=== PATIENT | male | born 1950 | race Caucasian/White ===

== ENCOUNTER → 2017-10-04 09:20 | Outpatient (CLI) | payer MEDICARE, SELFPAY ==
[2017-10-04 12:34] LABS: Color, Urine Yellow (Yellow); Glucose, Dipstick Normal (Normal); Ketone-Dipstick Negative (Negative); Leukocyte Esterase-Dipstick Negative /ul (Negative); Nitrite-Dipstick Negative (Negative); Occult Blood-Urine Negative /ul (Negative); Protein-Dipstick Negative (Negative); Urine Bilirubin Dipstick Negative (Negative); Urine Clarity Clear (Clear); Urine Urobilinogen Normal (Normal); Urine pH 6.5 (5.0 - 8.0)
[2017-10-04 12:36] LABS: Absolute Lymphocyte Count 1.87 X10^3/ul (0.83-4.51); Absolute Neutrophil Count 3.6 X10^3/uL (2.0-7.7); Basophil# 0.02 X10^3/uL; Basophil% 0.3 % (0-1); Eosinophil# 0.23 X10^3/uL; Eosinophils% 3.6 % (0-5); Hematocrit 46.2 % (40-54); Hemoglobin 15.4 g/dl (13.0-16.5); Lymphocyte # 1.87 X10^3/ul (4.0); Mean Corp Hgb Conc 33.3 g/gl (32-36); Mean Corpuscular Hgb 30.1 pg (27.0-32.0); Mean Corpuscular Volume 90.2 fL (80-94); Mean Platelet Vol. 9.4 fl (6.2-12.0); Monocyte# 0.72 X10^3/uL; Monocyte% 11.2 % (0-10); Neutrophil # 3.57 X10^3/uL (2.7-7.7); Neutrophil % 55.4 % (47-70); Platelet Count 205 K/mm3 (150-450); RBC Distribution Width SD 42.2 fl (35.1-43.9); Red Blood Count 5.12 M/mm3 (4.6-6.2); White Blood Count 6.4 K/mm3 (4.4-11.0)
[2017-10-04 12:37] LABS: POSITIVE COUNT NO; POSITIVE DIFFERENTIAL NO; POSITIVE MORPHOLOGY NO
[2017-10-04 13:14] LABS: ALB/GLOB Ratio 1.1 RATIO (0.9-2.4); AST(SGOT) 28 U/L (15-37); Alanine Aminotransfer ALT/SGPT 32 U/L (16-61); Albumin, Serum 3.9 g/dL (3.2-5.0); Alkaline Phosphatase 92 U/L (45-117); Anion Gap 11 (5-15); BUN 13 mg/dL (7-18); BUN/Creat Ratio 15.4 RATIO (10-20); Calcium,Total 8.5 mg/dL (8.5-10.1); Chloride 101 mmol/L (98-107); Cholesterol 120 mg/dL (200); Creatinine, Serum 0.84 mg/dL (0.70-1.30); EST Glomerular Filtration Rate 97 mL/min (>60); Est Glom Filt Rate - Afr Amer 118 mL/min (>60); Globulin 3.4 g/dL (2.2-4.2); Glucose 114 mg/dL (74-106); High Density Lipoprotein 40 mg/dL; Potassium 4.2 mmol/L (3.5-5.1); Protein, Total 7.3 g/dL (6.4-8.2); Sodium Level 139 mmol/L (136-145); Thyroid Stim Hormone (TSH) 1.63 uIU/mL (0.358-3.74); Triglycerides 125 mg/dL; Very Low Density Lipoprotein 25 mg/dL (5-40)
== END ==
DX: Z00.00 Encounter for general adult medical examination without abnormal findings (principal); E78.00 Pure hypercholesterolemia, unspecified; I10 Essential (primary) hypertension; E11.9 Type 2 diabetes mellitus without complications; Q23.1 Congenital insufficiency of aortic valve; Z12.5 Encounter for screening for malignant neoplasm of prostate
CPT/HCPCS: 36415; 80053; 80061; 81002; 84443; 85025

== ENCOUNTER → 2018-04-03 10:20 | Outpatient (CLI) | payer MEDICARE, SELFPAY ==
[2018-04-03 12:15] LABS: AST(SGOT) 26 U/L (15-37); Alanine Aminotransfer ALT/SGPT 31 U/L (16-61); Albumin, Serum 3.6 g/dL (3.2-5.0); Alkaline Phosphatase 86 U/L (45-117); Bilirubin, Direct 0.17 mg/dL (0.00-0.30); Cholesterol 107 mg/dL (200); Globulin 4.1 g/dL (2.2-4.2); High Density Lipoprotein 34 mg/dL; Protein, Total 7.7 g/dL (6.4-8.2); Thyroid Stim Hormone (TSH) 1.05 uIU/mL (0.358-3.74); Triglycerides 152 mg/dL; Very Low Density Lipoprotein 30 mg/dL (5-40)
[2018-04-03 12:16] LABS: Hemoglobin A1c 6.5 % (4.2-6.3)
== END ==
PROVIDERS: Visit Provider Family Medicine
DX: E78.00 Pure hypercholesterolemia, unspecified (principal); E11.9 Type 2 diabetes mellitus without complications; E03.9 Hypothyroidism, unspecified
CPT/HCPCS: 36415; 80061; 80076; 83036; 84443

== ENCOUNTER → 2018-10-01 08:35 | Outpatient (CLI) | payer MEDICARE, SELFPAY ==
[2018-06-06 09:57] VITALS: BMI 35.8
[2018-10-01 10:25] LABS: Color, Urine Yellow (Yellow); Glucose, Dipstick Normal (Normal); Ketone-Dipstick Negative (Negative); Leukocyte Esterase-Dipstick Negative /ul (Negative); Nitrite-Dipstick Negative (Negative); Occult Blood-Urine Negative /ul (Negative); Protein-Dipstick Negative (Negative); Specific Gravity, Urine 1.015 (1.002-1.030); Urine Bilirubin Dipstick Negative (Negative); Urine Clarity Clear (Clear); Urine Urobilinogen Normal (Normal)
[2018-10-01 10:40] LABS: ALB/GLOB Ratio 0.9 RATIO (0.9-2.4); AST(SGOT) 28 U/L (15-37); Alanine Aminotransfer ALT/SGPT 47 U/L (16-61); Albumin, Serum 3.6 g/dL (3.2-5.0); Alkaline Phosphatase 114 U/L (45-117); Anion Gap 10 (5-15); BUN 11 mg/dL (7-18); BUN/Creat Ratio 11.8 RATIO (10-20); Calcium,Total 8.3 mg/dL (8.5-10.1); Chloride 105 mmol/L (98-107); Cholesterol 109 mg/dL (200); Creatinine, Serum 0.93 mg/dL (0.70-1.30); EST Glomerular Filtration Rate 86 mL/min (>60); Est Glom Filt Rate - Afr Amer 104 mL/min (>60); Glucose 167 mg/dL (74-106); High Density Lipoprotein 30 mg/dL; Potassium 4.3 mmol/L (3.5-5.1); Protein, Total 7.6 g/dL (6.4-8.2); Sodium Level 138 mmol/L (136-145); Thyroid Stim Hormone (TSH) 2.33 uIU/mL (0.358-3.74); Triglycerides 230 mg/dL; Very Low Density Lipoprotein 46 mg/dL (5-40)
[2018-10-01 11:13] LABS: Absolute Lymphocyte Count 2.63 X10^3/ul (0.83-4.51); Absolute Neutrophil Count 4.6 X10^3/uL (2.0-7.7); Basophil# 0.04 X10^3/uL; Basophil% 0.5 % (0-1); Eosinophil# 0.26 X10^3/uL; Eosinophils% 3.1 % (0-5); Hemoglobin 15.9 g/dl (13.0-16.5); Lymphocyte # 2.63 X10^3/ul (4.0); Lymphocyte % 31.3 % (19-41); Mean Corp Hgb Conc 34.6 g/gl (32-36); Mean Corpuscular Volume 89.7 fL (80-94); Mean Platelet Vol. 9.5 fl (6.2-12.0); Monocyte% 9.5 % (0-10); Neutrophil # 4.61 X10^3/uL (2.7-7.7); Platelet Count 239 K/mm3 (150-450); RBC Distribution Width CV 13.3 % (11.6-14.6); Red Blood Count 5.13 M/mm3 (4.6-6.2); White Blood Count 8.4 K/mm3 (4.4-11.0)
[2018-10-01 11:15] LABS: POSITIVE COUNT NO; POSITIVE DIFFERENTIAL NO; POSITIVE MORPHOLOGY NO
[2018-10-01 12:01] LABS: PSA,Total - Annual Screen 0.17 ng/mL (0.00-4.00)
== END ==
PROVIDERS: Referring Provider Family Medicine; Visit Provider Family Medicine
DX: Z00.00 Encounter for general adult medical examination without abnormal findings (principal); E11.9 Type 2 diabetes mellitus without complications; E03.9 Hypothyroidism, unspecified; E78.00 Pure hypercholesterolemia, unspecified; I10 Essential (primary) hypertension; Z12.5 Encounter for screening for malignant neoplasm of prostate
CPT/HCPCS: 36415; 80053; 80061; 81002; 84153; 84443; 85025; G0103

== ENCOUNTER → 2019-01-15 | Outpatient (CLI) | payer MEDICARE, SELFPAY ==
[2018-12-17 11:02] VITALS: BMI 37.3
--- NOTE | 2019-01-15 09:59 | ECHOCS_ITS ---
Reason For Study: Bicuspid AoV Procedure This was a 2D Doppler, Color Flow transthoracic echocardiogram. The study was technically difficult. Contrast injection was performed. Exam performed in department. Left Ventricle Normal LV size. Left ventricular systolic function is normal. The estimated ejection fraction is 60 %. No evidence for diastolic dysfunction. No regional wall motion abnormalities noted. Right Ventricle Normal RV size. Normal systolic function. Atria Normal left atrium. Normal right atrium. No doppler evidence for ASD. Mitral Valve There is no mitral annular calcification. Normal mitral valve. Trivial mitral valve insufficiency. Tricuspid Valve Normal tricuspid valve. Trivial tricuspid valve insufficiency. Unable to estimate RV systolic pressure/pulmonary artery pressure due to technically difficult study. Aortic Valve Based upon the 2D echocardiographic images obtained the aortic valve apparatus is not well visualized, however, a bicuspid aortic valve with a fused and calcified raphae cannot be excluded. Mild aortic stenosis. Mild (1+) aortic valve insufficiency. Pulmonic Valve The pulmonic valve is not well visualized. Great Vessels Normal sized aortic root. Pericardium/Pleural No pericardial effusion. Medication Diluted definity 3ml given slow IV push to enhance endocardial definition. MMode/2D Measurements & Calculations LVIDd: 5.3 cm IVSd: 1.2 cm LVOT diam: 2.4 cm LVIDs: 2.9 cm LVPWd: 1.4 cm RVDd: 3.1 cm FS: 45.3 % LVOT area: 4.4 cm2 Ao root diam: 3.1 cm LAV(MOD-bp): 45.2 ml LVAd ap4: 33.5 cm2 LAV(MOD-bp) Indexed: 18.9 ml/m2 EDV(MOD-sp4): 100.1 ml LAV(MOD-sp2): 52.5 ml EDV(sp4-el): 104.2 ml LAV(MOD-sp4): 34.8 ml LVAs ap4: 16.1 cm2 ESV(MOD-sp4): 31.2 ml ESV(sp4-el): 31.8 ml EF(MOD-sp4): 68.8 % EF(sp4-el): 69.5 % SV(MOD-sp4): 68.9 ml SV(sp4-el): 72.4 ml LA A4 area: 14.3 cm2 LA dimension(2D): 3.9 cm RA A4 area: 11.7 cm2 Doppler Measurements & Calculations MV E max tom: 85.8 cm/sec Lat Peak E' Tom: 9.7 cm/sec Med Peak E' Tom: 7.5 cm/sec MV A max tom: 102.2 cm/sec E/E' lat: 8.9 E/E' med: 11.5 MV E/A: 0.84 Ao V2 max: 283.6 cm/sec AI max tom: 304.5 cm/sec LV V1 max: 119.8 cm/sec Ao max P.2 mmHg AI max P.1 mmHg LV V1 max P.7 mmHg Ao V2 mean: 190.3 cm/sec LV V1 mean P.1 mmHg Ao mean P.5 mmHg AI dec slope: 121.3 cm/sec2 LV V1 mean: 83.5 cm/sec Ao V2 VTI: 56.8 cm AI P1/2t: 735.0 msec LV V1 VTI: 27.0 cm RODGER(I,D): 2.1 cm2 RODGER(V,D): 1.9 cm2 SV(LVOT): 118.7 ml PA V2 max: 139.8 cm/sec Interpretation Summary The study was technically difficult. Contrast injection was performed. Left ventricular systolic function is normal. The estimated ejection fraction is 60 %. Trivial mitral valve insufficiency. Trivial tricuspid valve insufficiency. Based upon the 2D echocardiographic images obtained the aortic valve apparatus is not well visualized, however, a bicuspid aortic valve with a fused and calcified raphae cannot be excluded. Mild aortic stenosis. Mild (1+) aortic valve insufficiency. Unable to estimate RV systolic pressure/pulmonary artery pressure due to technically difficult study. No evidence for diastolic dysfunction. Ordering Physician: Branden Cole Referring Physician: Eugenio Arias Performed By: Umm Garcia, REILLY, RVT
== END | disposition home or self-care (01) ==
PROVIDERS: Referring Provider Internal Medicine Cardiovascular Disease; Visit Provider Internal Medicine Cardiovascular Disease
DX: I25.10 Atherosclerotic heart disease of native coronary artery without angina pectoris (principal)
CPT/HCPCS: 93306; Q9957; A4216; C8929

== ENCOUNTER → 2019-04-02 | Outpatient (CLI) | payer MEDICARE, SELFPAY ==
[2018-12-17 11:02] VITALS: BMI 37.3
[2019-04-02 10:20] LABS: Absolute Lymphocyte Count 2.32 X10^3/uL (0.83-4.51); Absolute Neutrophil Count 4.4 X10^3/uL (2.0-7.7); Basophil# 0.05 X10^3/uL; Basophil% 0.6 % (0-1); Eosinophil# 0.28 X10^3/uL; Eosinophils% 3.5 % (0-5); Hematocrit 42.7 % (40-54); Hemoglobin 14.3 g/dL (13.0-16.5); Lymphocyte # 2.32 X10^3/ul (4.0); Lymphocyte % 29.1 % (19-41); Mean Corp Hgb Conc 33.5 g/dL (32-36); Mean Corpuscular Hgb 29.8 pg (27.0-32.0); Mean Platelet Vol. 9.4 fl (6.2-12.0); Monocyte# 0.83 X10^3/uL; Monocyte% 10.4 % (0-10); NRBC Flagged by Analyzer 0 % (0-5); Neutrophil # 4.44 X10^3/uL (2.7-7.7); Neutrophil % 55.9 % (47-70); Platelet Count 223 K/mm3 (150-450); RBC Distribution Width CV 12.8 % (11.6-14.6); RBC Distribution Width SD 41.5 fl (35.1-43.9)
[2019-04-02 10:42] LABS: Color, Urine Yellow (Yellow); Glucose, Dipstick Normal (Normal); Ketone-Dipstick Negative (Negative); Leukocyte Esterase-Dipstick Negative /ul (Negative); Nitrite-Dipstick Negative (Negative); Occult Blood-Urine Negative /ul (Negative); Protein-Dipstick Negative (Negative); Specific Gravity, Urine 1.015 (1.002-1.030); Urine Bilirubin Dipstick Negative (Negative); Urine Clarity Clear (Clear); Urine Urobilinogen Normal (Normal)
[2019-04-02 10:53] LABS: Hemoglobin A1c 7.1 % (4.2-6.3)
[2019-04-02 10:56] LABS: ALB/GLOB Ratio 0.9 RATIO (0.9-2.4); AST(SGOT) 24 U/L (15-37); Alanine Aminotransfer ALT/SGPT 32 U/L (16-61); Albumin, Serum 3.4 g/dL (3.2-5.0); Alkaline Phosphatase 101 U/L (45-117); Anion Gap 7 (5-15); BUN 14 mg/dL (7-18); BUN/Creat Ratio 14.4 RATIO (10-20); Calcium,Total 8.6 mg/dL (8.5-10.1); Chloride 105 mmol/L (98-107); Cholesterol 114 mg/dL (200); Creatinine, Serum 0.97 mg/dL (0.70-1.30); EST Glomerular Filtration Rate 82 mL/min (>60); Est Glom Filt Rate - Afr Amer 100 mL/min (>60); Globulin 3.7 g/dL (2.2-4.2); Glucose 141 mg/dL (74-106); High Density Lipoprotein 31 mg/dL; Potassium 3.9 mmol/L (3.5-5.1); Protein, Total 7.1 g/dL (6.4-8.2); Sodium Level 137 mmol/L (136-145); Triglycerides 241 mg/dL; Very Low Density Lipoprotein 48 mg/dL (5-40)
== END | disposition home or self-care (01) ==
PROVIDERS: Referring Provider Family Medicine; Visit Provider Family Medicine
DX: Z00.00 Encounter for general adult medical examination without abnormal findings (principal); I25.10 Atherosclerotic heart disease of native coronary artery without angina pectoris; E11.9 Type 2 diabetes mellitus without complications; E03.9 Hypothyroidism, unspecified; E78.5 Hyperlipidemia, unspecified; I10 Essential (primary) hypertension
CPT/HCPCS: 36415; 80053; 80061; 81002; 83036; 85025

== ENCOUNTER → 2019-04-24 | Outpatient (CLI) | payer MEDICARE, SELFPAY ==
[2018-12-17 11:02] VITALS: BMI 37.3
--- NOTE | 2019-04-24 15:41 | NEURO ---
NCS and/or EMG Patient Report Ordering Doctor: Eugenio Arias DATE OF SERVICE: 04/24/19 Federico Calhoun is a 68-year-old male presents for electrodiagnostic testing of the upper limbs. He reports numbness and tingling in both hands, worse on the left side. Additionally, he complains of weakness in both hands. Electrodiagnostic findings: Median motor nerve demonstrates prolonged distal latency bilaterally with 50% drop in amplitude on the left side. There is slowing of right median motor conduction velocity. Ulnar motor response demonstrates decreased amplitude on the left side. Borderline prolonged median and ulnar F waves are noted. Prolonged median sensory latency at the wrist bilaterally. Prolonged median palmar latency noted bilaterally. Prolonged ulnar sensory latency bilaterally. On needle EMG, all muscles tested in the upper limb showed no evidence of denervation with normal motor unit action potentials. Electrodiagnostic impression: This is an abnormal study in the upper limbs. 1. Electrodiagnostic findings demonstrate bilateral median mononeuropathy. This is consistent with a moderate bilateral carpal tunnel syndrome. 2. 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 3. 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 4. Consider correlation with electrodiagnostic testing of the lower limbs to evaluate for peripheral polyneuropathy. Next If there are any further questions, please do not hesitate to contact me
== END | disposition home or self-care (01) ==
LOC: PSN 13:54
PROVIDERS: Referring Provider Family Medicine; Visit Provider Family Medicine
DX: R20.2 Paresthesia of skin (principal)
CPT/HCPCS: 95886; 95913

== ENCOUNTER → 2019-10-04 09:27 | Outpatient (CLI) | payer MEDICARE, SELFPAY ==
[2019-06-19 11:06] VITALS: BMI 36.1
[2019-10-04 13:25] LABS: AST(SGOT) 36 U/L (15-37); Alanine Aminotransfer ALT/SGPT 55 U/L (16-61); Albumin, Serum 3.5 g/dL (3.2-5.0); Alkaline Phosphatase 98 U/L (45-117); Bilirubin, Direct 0.11 mg/dL (0.00-0.30); Cholesterol 115 mg/dL (200); Globulin 3.7 g/dL (2.2-4.2); High Density Lipoprotein 31 mg/dL; Protein, Total 7.2 g/dL (6.4-8.2); Thyroid Stim Hormone (TSH) 1.88 uIU/mL (0.358-3.74); Triglycerides 256 mg/dL; Very Low Density Lipoprotein 51 mg/dL (5-40)
== END ==
PROVIDERS: Referring Provider Family Medicine; Visit Provider Family Medicine
DX: E11.9 Type 2 diabetes mellitus without complications (principal); E78.5 Hyperlipidemia, unspecified; E03.9 Hypothyroidism, unspecified
CPT/HCPCS: 36415; 80061; 80076; 83036; 84443

== ENCOUNTER → 2019-10-21 09:16 | Outpatient (CLI) | payer MEDICARE, SELFPAY ==
[2019-06-19 11:06] VITALS: BMI 36.1
--- NOTE | 2019-10-21 09:35 | EKG12_ITS ---
Test Reason : PRE OP Blood Pressure : / mmHG Vent. Rate : 067 BPM Atrial Rate : 067 BPM P-R Int : 196 ms QRS Dur : 084 ms QT Int : 384 ms P-R-T Axes : 052 -09 023 degrees QTc Int : 405 ms Sinus rhythm with occasional Premature ventricular complexes Inferior infarct , age undetermined Abnormal ECG Confirmed by SANDOVAL ARZATE, HENRY ([id number]), writer editor TRACY HUTCHINS ([id number]) on 10/22/2019 10:33:39 AM Referred By: Virginie Willson Confirmed By:HENRY NICK MD
[2019-10-21 10:49] LABS: Anion Gap 6 (5-15); BUN 11 mg/dL (7-18); BUN/Creat Ratio 10.7 RATIO (10-20); Calcium,Total 8.7 mg/dL (8.5-10.1); Chloride 105 mmol/L (98-107); Creatinine, Serum 1.03 mg/dL (0.70-1.30); EST Glomerular Filtration Rate 77 mL/min (>60); Est Glom Filt Rate - Afr Amer 93 mL/min (>60); Glucose 159 mg/dL (74-106); Potassium 4.2 mmol/L (3.5-5.1); Sodium Level 137 mmol/L (136-145)
== END ==
PROVIDERS: Referring Provider Orthopaedic Surgery Hand Surgery; Visit Provider Orthopaedic Surgery Hand Surgery
DX: G56.02 Carpal tunnel syndrome, left upper limb (principal); G56.22 Lesion of ulnar nerve, left upper limb; I10 Essential (primary) hypertension
CPT/HCPCS: 36415; 80048; 93005

== ENCOUNTER → 2019-10-25 08:26 | Outpatient (CLI) | payer MEDICARE, SELFPAY ==
[2019-06-19 11:06] VITALS: BMI 36.1
== END ==
PROVIDERS: Referring Provider Orthopaedic Surgery Hand Surgery; Visit Provider Orthopaedic Surgery Hand Surgery
DX: G56.02 Carpal tunnel syndrome, left upper limb (principal)
CPT/HCPCS: 36415; 85018

== ENCOUNTER → 2020-01-24 07:25 | Outpatient (CLI) | payer MEDICARE, SELFPAY ==
[2019-06-19 11:06] VITALS: BMI 36.1
[2020-01-24 10:30] LABS: Anion Gap 6 (5-15); BUN 13 mg/dL (7-18); BUN/Creat Ratio 13.4 RATIO (10-20); Calcium,Total 9.1 mg/dL (8.5-10.1); Chloride 105 mmol/L (98-107); Creatinine, Serum 0.97 mg/dL (0.70-1.30); EST Glomerular Filtration Rate 82 mL/min (>60); Est Glom Filt Rate - Afr Amer 99 mL/min (>60); Glucose 168 mg/dL (74-106); Potassium 3.8 mmol/L (3.5-5.1); Sodium Level 138 mmol/L (136-145)
[2020-01-24 22:56] LABS: Hemoglobin 14.4 g/dL (13.0-16.5)
== END ==
PROVIDERS: Referring Provider Orthopaedic Surgery Hand Surgery; Visit Provider Orthopaedic Surgery Hand Surgery
DX: G56.02 Carpal tunnel syndrome, left upper limb (principal); G56.22 Lesion of ulnar nerve, left upper limb; E07.9 Disorder of thyroid, unspecified; Z79.899 Other long term (current) drug therapy
CPT/HCPCS: 36415; 80048; 83036; 85018

== ENCOUNTER → 2020-04-03 09:44 | Outpatient (CLI) | payer MEDICARE, SELFPAY ==
[2019-06-19 11:06] VITALS: BMI 36.1
[2020-04-03 12:18] LABS: Absolute Lymphocyte Count 2.25 X10^3/uL (0.83-4.51); Absolute Neutrophil Count 4.8 X10^3/uL (2.0-7.7); Basophil# 0.03 X10^3/uL; Basophil% 0.4 % (0-1); Eosinophil# 0.21 X10^3/uL; Eosinophils% 2.7 % (0-5); Hematocrit 45.1 % (40-54); Hemoglobin 14.6 g/dL (13.0-16.5); Lymphocyte # 2.25 X10^3/ul (4.0); Lymphocyte % 28.6 % (19-41); Mean Corp Hgb Conc 32.4 g/dL (32-36); Mean Corpuscular Hgb 29.8 pg (27.0-32.0); Mean Platelet Vol. 9.7 fl (6.2-12.0); Monocyte# 0.58 X10^3/uL; Monocyte% 7.4 % (0-10); NRBC Flagged by Analyzer 0 % (0-5); Neutrophil # 4.76 X10^3/uL (2.7-7.7); Neutrophil % 60.4 % (47-70); Platelet Count 224 K/mm3 (150-450); RBC Distribution Width CV 13.3 % (11.6-14.6); RBC Distribution Width SD 44.7 fl (35.1-43.9); White Blood Count 7.9 K/mm3 (4.4-11.0)
[2020-04-03 12:19] LABS: Color, Urine Yellow (Yellow); Glucose, Dipstick Normal (Normal); Ketone-Dipstick Negative (Negative); Leukocyte Esterase-Dipstick Negative /ul (Negative); Nitrite-Dipstick Negative (Negative); Occult Blood-Urine Negative /ul (Negative); Protein-Dipstick Negative (Negative); Urine Bilirubin Dipstick Negative (Negative); Urine Clarity Clear (Clear); Urine Urobilinogen Normal (Normal)
[2020-04-03 12:39] LABS: Hemoglobin A1c 7.8 % (3.8-5.6)
[2020-04-03 12:58] LABS: ALB/GLOB Ratio 0.8 RATIO (0.9-2.4); AST(SGOT) 30 U/L (15-37); Alanine Aminotransfer ALT/SGPT 37 U/L (16-61); Albumin, Serum 3.4 g/dL (3.2-5.0); Alkaline Phosphatase 95 U/L (45-117); Anion Gap 7 (5-15); BUN 9 mg/dL (7-18); BUN/Creat Ratio 9.7 RATIO (10-20); Calcium,Total 8.3 mg/dL (8.5-10.1); Chloride 107 mmol/L (98-107); Cholesterol 103 mg/dL (200); Creatinine, Serum 0.93 mg/dL (0.70-1.30); EST Glomerular Filtration Rate 86 mL/min (>60); Est Glom Filt Rate - Afr Amer 104 mL/min (>60); Glucose 153 mg/dL (74-106); High Density Lipoprotein 31 mg/dL; PSA,Total - Annual Screen 0.18 ng/mL (0.00-4.00); Potassium 4.1 mmol/L (3.5-5.1); Protein, Total 7.4 g/dL (6.4-8.2); Sodium Level 138 mmol/L (136-145); Triglycerides 155 mg/dL; Very Low Density Lipoprotein 31 mg/dL (5-40)
== END ==
PROVIDERS: Referring Provider Family Medicine; Visit Provider Family Medicine
DX: Z00.00 Encounter for general adult medical examination without abnormal findings (principal); I25.10 Atherosclerotic heart disease of native coronary artery without angina pectoris; E11.9 Type 2 diabetes mellitus without complications; E78.5 Hyperlipidemia, unspecified; I10 Essential (primary) hypertension; E03.9 Hypothyroidism, unspecified; Z12.5 Encounter for screening for malignant neoplasm of prostate
CPT/HCPCS: 36415; 80053; 80061; 81002; 83036; 84153; 84443; 85025; G0103

== ENCOUNTER → 2020-04-28 12:32 | Outpatient (CLI) | payer MEDICARE, SELFPAY ==
[2020-04-27 11:36] VITALS: BMI 36.5
--- NOTE | 2020-04-28 12:34 | RAD_ITS ---
STUDY: X-RAY CHEST REASON FOR EXAM: Male, 69 years old. Dyspnea on exertion x 1 month, hypertension -- angioplasty 4 years ago TECHNIQUE: Frontal and lateral view COMPARISON: 09/28/2015 FINDINGS: The lungs are expanded. Bibasilar interstitial prominence. Normal size heart. Normal mediastinum and heidi. Normal visualized pulmonary arteries. Normal visualized aortic arch and descending thoracic aorta. Degenerative changes of the thoracic spine. Degenerative changes at the shoulders. There is no demonstrated abnormality of the visualized soft tissue structures of the upper abdomen. RAD/Chest PA and Lateral IMPRESSION: Bibasilar interstitial prominence. Electronically Signed: Michel Reno DO at 23:42 EDT Tel [phone], Service support ,
== END ==
PROVIDERS: Referring Provider Internal Medicine Cardiovascular Disease; Visit Provider Internal Medicine Cardiovascular Disease
DX: I25.10 Atherosclerotic heart disease of native coronary artery without angina pectoris (principal); Q23.1 Congenital insufficiency of aortic valve; E78.00 Pure hypercholesterolemia, unspecified; I10 Essential (primary) hypertension; R06.00 Dyspnea, unspecified; Z98.61 Coronary angioplasty status
CPT/HCPCS: 71046

== ENCOUNTER → 2020-06-25 06:34 | Outpatient (CLI) | payer MEDICARE, SELFPAY ==
[2020-04-27 11:36] VITALS: BMI 36.5
--- NOTE | 2020-06-25 06:36 | ECHOCS_ITS ---
Reason For Study: DYSPNEA/SOB Procedure This was a 2D Doppler, Color Flow transthoracic echocardiogram. The study was technically difficult. Contrast injection was performed. Exam performed in department. Left Ventricle Normal LV size. Left ventricular systolic function is normal. The estimated ejection fraction is 55 %. No evidence for diastolic dysfunction. No regional wall motion abnormalities noted. Right Ventricle Normal RV size. Normal systolic function. Atria Normal left atrium. Normal right atrium. No doppler evidence for ASD. Mitral Valve There is no mitral annular calcification. Normal mitral valve. Trivial mitral valve insufficiency. Tricuspid Valve Normal tricuspid valve. Trivial tricuspid valve insufficiency. Unable to estimate RV systolic pressure/pulmonary artery pressure due to technically difficult study. Aortic Valve Based upon the 2D echocardiographic images obtained the aortic valve apparatus is not well visualized, however, bicuspid aortic valve with a fused and calcified raphae cannot be excluded. Severe focal aortic valve calcification. Mild aortic stenosis. Trivial aortic valve insufficiency. Pulmonic Valve The pulmonic valve is not well visualized. Great Vessels Normal aortic root. Pericardium/Pleural No pericardial effusion. Medication Diluted definity 3ml given slow IV push to enhance endocardial definition. MMode/2D Measurements & Calculations LVIDd: 4.8 cm IVSd: 1.1 cm LVOT diam: 2.0 cm LVIDs: 3.3 cm LVPWd: 1.2 cm RVDd: 3.5 cm FS: 31.0 % LVOT area: 3.3 cm2 Ao root diam: 3.2 cm LAV(MOD-bp): 63.7 ml LVAd ap4: 36.4 cm2 LAV(MOD-bp) Indexed: 26.9 ml/m2 EDV(MOD-sp4): 129.1 ml LAV(MOD-sp2): 75.7 ml EDV(sp4-el): 130.4 ml LAV(MOD-sp4): 47.1 ml LVAs ap4: 24.1 cm2 ESV(MOD-sp4): 61.8 ml ESV(sp4-el): 63.8 ml EF(MOD-sp4): 52.1 % EF(sp4-el): 51.1 % SV(MOD-sp4): 67.3 ml SV(sp4-el): 66.7 ml LA A4 area: 16.8 cm2 LA dimension(2D): 3.8 cm RA A4 area: 14.5 cm2 Time Measurements MV dec time: 0.22 sec Doppler Measurements & Calculations MV E max tom: 101.3 cm/sec Lat Peak E' Tom: 10.1 cm/sec Med Peak E' Tom: 7.8 cm/sec MV A max tom: 87.4 cm/sec E/E' lat: 10.0 E/E' med: 13.1 MV E/A: 1.2 Ao V2 max: 237.3 cm/sec AI max tom: 364.9 cm/sec LV V1 max: 90.6 cm/sec Ao max P.5 mmHg AI max P.3 mmHg LV V1 max P.3 mmHg Ao V2 mean: 173.1 cm/sec AI dec slope: 186.4 cm/sec2 LV V1 mean P.7 mmHg Ao mean P.2 mmHg AI P1/2t: 573.4 msec LV V1 mean: 60.1 cm/sec Ao V2 VTI: 59.6 cm LV V1 VTI: 23.9 cm RODGER(I,D): 1.3 cm2 RODGER(V,D): 1.2 cm2 SV(LVOT): 78.4 ml PA V2 max: 126.3 cm/sec Interpretation Summary The study was technically difficult. Contrast injection was performed. Left ventricular systolic function is normal. The estimated ejection fraction is 55 %. Trivial mitral valve insufficiency. Trivial tricuspid valve insufficiency. Based upon the 2D echocardiographic images obtained the aortic valve apparatus is not well visualized, however, bicuspid aortic valve with a fused and calcified raphae cannot be excluded. Severe focal aortic valve calcification. Mild aortic stenosis. Trivial aortic valve insufficiency. Unable to estimate RV systolic pressure/pulmonary artery pressure due to technically difficult study. No evidence for diastolic dysfunction. Ordering Physician: Branden Cole Referring Physician: GABINO SOLO Performed By: Delores Thomas RDCS
--- NOTE | 2020-06-25 08:41 | STRESSREP_ITS ---
Stress Test Report Date: 06-25-2020 Procedure: Pharmacologic stress nuclear imaging study Indications: Shortness of breath/dyspnea on exertion; CAD; PCI; bicuspid aortic valve; IVA Consent: Per the patient Procedure: The patient underwent pharmacologic (Regadenoson) evaluation with a peak heart rate of 85 beats per minute (55%predicted maximal heart rate) and a peak blood pressure of 128/66 mmHg. The baseline ECG demonstrated sinus rhythm; occasional PVC. The peak pharmacologic ECG demonstrated no obvious ECG changes. There was an occasional PVC pretest, during infusion, and recovery. There was no complaint of chest discomfort during pharmacologic infusion or recovery. The examination was discontinued secondary to completion of protocol. Impression: 1. Pharmacologic (Regadenoson) evaluation 2. Peak pharmacologic ECG with with no obvious ECG changes. 3. There were no cardiac dysrhythmias pretest, during pharmacologic infusion, or recovery. 4. Nuclear images pending Myocardial perfusion imaging study: Technique: The patient was injected with 14.8 millicuries of technetium 99m Cardiolite and subsequently rest SPECT Cardiolite nuclear imaging was obtained in the horizontal long, vertical long, and short axis views. The patient underwent pharmacologic (Regadenoson) evaluation with a peak heart rate of 85 beats per minute (55% percent predicted maximal heart rate) and a peak blood pressure of 128/66 mmHg. The patient was injected with 44.7 millicuries of technetium 99m Cardiolite and subsequently stress SPECT Cardiolite nuclear imaging was obtained in the horizontal long, vertical long, and short axis views. A gated Cardiolite study at peak stress was obtained. Interpretation: Rest and stress SPECT Cardiolite nuclear imaging status post realignment, normalization, and attenuation correction demonstrate relative uniform tracer uptake and myocardial perfusion appearing within normal limits. There is end systolic thickening and brightening. The gated Cardiolite study demonstrates myocardial thickening and inward wall motion. The reported LVEF is 54%. Impression: 1. Rest and stress SPECT Cardiolite nuclear imaging demonstrate relative uniform tracer uptake and myocardial perfusion appearing within normal limits. 2. The gated Cardiolite study reports an LVEF of 54%. This note was generated with [employer] software. It may contain incorrect words, spelling, and punctuation that were not noted in checking the note before signing.
== END ==
PROVIDERS: Referring Provider Internal Medicine Cardiovascular Disease; Visit Provider Internal Medicine Cardiovascular Disease
DX: I25.10 Atherosclerotic heart disease of native coronary artery without angina pectoris (principal); R06.09 Other forms of dyspnea; Q23.1 Congenital insufficiency of aortic valve; E78.00 Pure hypercholesterolemia, unspecified; I10 Essential (primary) hypertension; R06.00 Dyspnea, unspecified; Z98.61 Coronary angioplasty status
CPT/HCPCS: 78452; 93017; 93306; A9500; Q9957; A4216; C8929; J2785

== ENCOUNTER → 2020-09-25 08:47 | Outpatient (CLI) | payer MEDICARE, SELFPAY ==
[2020-04-27 11:36] VITALS: BMI 36.5
[2020-09-25 10:41] LABS: ALB/GLOB Ratio 0.9 RATIO (0.9-2.4); AST(SGOT) 27 U/L (15-37); Alanine Aminotransfer ALT/SGPT 36 U/L (16-61); Albumin, Serum 3.7 g/dL (3.2-5.0); Alkaline Phosphatase 68 U/L (45-117); Anion Gap 5 (5-15); BUN 12 mg/dL (7-18); BUN/Creat Ratio 11.8 RATIO (10-20); Calcium,Total 8.7 mg/dL (8.5-10.1); Chloride 105 mmol/L (98-107); Cholesterol 132 mg/dL (200); Creatinine, Serum 1.02 mg/dL (0.70-1.30); EST Glomerular Filtration Rate 77 mL/min (>60); Est Glom Filt Rate - Afr Amer 93 mL/min (>60); Glucose 133 mg/dL (74-106); High Density Lipoprotein 47 mg/dL; Potassium 4.4 mmol/L (3.5-5.1); Protein, Total 7.7 g/dL (6.4-8.2); Sodium Level 136 mmol/L (136-145); Thyroid Stim Hormone (TSH) 2.07 uIU/mL (0.358-3.74); Triglycerides 143 mg/dL; Very Low Density Lipoprotein 29 mg/dL (5-40)
[2020-09-25 10:42] LABS: Hemoglobin A1c 6.8 % (3.8-5.6)
== END ==
PROVIDERS: Referring Provider Family Medicine; Visit Provider Family Medicine
DX: E11.9 Type 2 diabetes mellitus without complications (principal); E78.5 Hyperlipidemia, unspecified; I10 Essential (primary) hypertension; E03.9 Hypothyroidism, unspecified
CPT/HCPCS: 36415; 80053; 80061; 83036; 84443

== ENCOUNTER 2020-10-01 19:33 | Inpatient (IN) | payer MEDICARE, SELFPAY ==
[2020-04-27 11:36] VITALS: BMI 36.5
[2020-10-01] VITALS (9 sets, daily range): BP systolic 111–154; BP diastolic 61–94; PULSE 93–103; RESP 18–24; TEMP 36.2–37.2; O2SAT 81–97; BMI 39.7; BMI 37.6; BMI 37.7
--- NOTE | 2020-10-01 20:18 | EKG12_ITS ---
Test Reason : SOB Blood Pressure : / mmHG Vent. Rate : 097 BPM Atrial Rate : 097 BPM P-R Int : 172 ms QRS Dur : 100 ms QT Int : 384 ms P-R-T Axes : 033 -07 019 degrees QTc Int : 487 ms Sinus rhythm with frequent Premature ventricular complexes in a pattern of bigeminy Possible Left atrial enlargement Nonspecific ST abnormality Abnormal ECG Confirmed by SANDOVAL ARZATE, HENRY ([id number]), newspaper editor RHIANNA BALLESTEROS ([id number]) on 10/05/2020 10:54:59 AM Referred By: JL Confirmed By:HENRY NICK MD
--- NOTE | 2020-10-01 20:28 | RAD_ITS ---
STUDY: X-RAY CHEST REASON FOR EXAM: Male, 70 years old. pt c/o SOB started after exertion. red tinged sputum when this occured as well. TECHNIQUE: AP portable COMPARISON: 04/28/2020 FINDINGS: Lungs are hyperinflated and there is diffuse interstitial thickening with bronchovascular cuffing consistent with interstitial edema.. There is no demonstrated pleural abnormality. Normal size heart. Normal mediastinum and heidi. Normal visualized pulmonary arteries. Normal visualized aortic arch and descending thoracic aorta. Dorsal spine and shoulders demonstrates degenerative change.. Normal visualized ribs, and clavicles. There is no demonstrated abnormality of the visualized soft tissue structures of the upper abdomen. RAD/Chest 1 View (Portable) IMPRESSION: Findings consistent with COPD and probable superimposed mild pulmonary interstitial edema. Clinical correlation recommended Electronically Signed: Chung Jett MD at 20:46 EST , Service support ,
[2020-10-01 20:34] LABS: Absolute Lymphocyte Count 3.05 X10^3/uL (0.83-4.51); Basophil# 0.04 X10^3/uL; Basophil% 0.4 % (0-1); Eosinophil# 0.24 X10^3/uL; Eosinophils% 2.7 % (0-5); Hematocrit 46.9 % (40-54); Hemoglobin 15.3 g/dL (13.0-16.5); Lymphocyte # 3.05 X10^3/ul (4.0); Lymphocyte % 33.9 % (19-41); Mean Corp Hgb Conc 32.6 g/dL (32-36); Mean Corpuscular Hgb 30.1 pg (27.0-32.0); Mean Corpuscular Volume 92.1 fL (80-94); Monocyte# 0.64 X10^3/uL; Monocyte% 7.1 % (0-10); NRBC Flagged by Analyzer 0 % (0-5); Neutrophil # 4.97 X10^3/uL (2.7-7.7); Neutrophil % 55.3 % (47-70); Platelet Count 245 K/mm3 (150-450); RBC Distribution Width CV 13.4 % (11.6-14.6); RBC Distribution Width SD 45.4 fl (35.1-43.9); Red Blood Count 5.09 M/mm3 (4.6-6.2)
[2020-10-01 20:50] LABS: Anion Gap 9 (5-15); BUN 14 mg/dL (7-18); BUN/Creat Ratio 10.9 RATIO (10-20); Calcium,Total 8.9 mg/dL (8.5-10.1); Chloride 103 mmol/L (98-107); Creatinine, Serum 1.29 mg/dL (0.70-1.30); EST Glomerular Filtration Rate 59 mL/min (>60); Est Glom Filt Rate - Afr Amer 71 mL/min (>60); Estimated Creatinine Clearance 58.37 ml/min; Glucose 176 mg/dL (74-106); Potassium 3.5 mmol/L (3.5-5.1); Sodium Level 139 mmol/L (136-145)
[2020-10-01 20:51] LABS: International Normalized Ratio 1.2; Prothrombin Time (Protime)PT. 14.7 SECONDS (11.7-14.9)
[2020-10-01 20:56] LABS: Bedside Glucose 204 mg/dL (70-110)
--- NOTE | 2020-10-01 21:28 | ED.DCSUM_ITS ---
History of Present Illness Chief Complaint: Shortness of Breath Informant: Patient Onset: Weeks Context: Sudden Onset - Has worsened over the past several days Timing: Continuous Quality: Shortness of breath, dyspnea on exertion Location: Not applicable Current Severity: Severe Maximum Severity: Severe Worsened by: Nothing Relieved by: Nothing Associated Symptoms: Denies chest pain states he is scheduled for pulmonary function tests Narrative: Patient is a elderly male with history of COPD. He recently saw Dr. Parmar. He is scheduled for pulmonary function test. He states his legs are chronically swollen. He denies increased orthopnea. He denies chest discomfort. He denies fever or chills. He denies upper respiratory symptoms. He has a cough productive of frothy sputum which is blood-tinged. This occurred abruptly. His shortness of breath abruptly got worse. He denies GI symptoms. - Past Medical History (1) IVA on CPAP Status: Acute (2) Aortic valve, bicuspid Status: Chronic (3) Atherosclerotic heart disease of [place] coronary artery without angina pectoris Status: Chronic Comment: S/P angioplasty without stenting to mid LCx and proximal LCx in October 2015; (4) Essential (primary) hypertension Status: Chronic (5) Hypothyroidism Status: Chronic (6) [employer] use of drug Status: Chronic Comment: Antihyperlipidemic (7) Pure hypercholesterolemia Status: Chronic (8) H/O percutaneous transluminal coronary angioplasty Status: Resolved Comment: R&L heart cath 10/06/15, PCI-PTCA-CX and FFR-RCA 10/22/15 Past Medical History - Allergies and Home Meds Allergies/Adverse Reactions: Allergies levothyroxine Adverse Reaction (Severe, Verified 04/27/20 11:37) Headache Primary Care Physician: Eugenio Arias [Primary Care Provider] - Prior records reviewed: Yes Lives: Alone Smoking Status: Former smoker Alcohol: None Drugs: None Review of Systems ROS: Unable to Obtain - Due to respiratory distress General: Reports: Malaise. Denies: Chills, Fever Eyes: Denies: Visual changes - bilaterally, Blurred Vision - bilaterally ENT: Denies: Rhinorrhea, Sore throat Cardiovascular: Denies: Chest pain, Palpitations Respiratory: Reports: Dyspnea, Cough, Sputum, Dyspnea on exertion. Denies: Orthopnea, Paroxysmal nocturnal dyspnea Gastrointestinal: Denies: Nausea, Vomiting Genitourinary: Denies: Dysuria, Hematuria Skin: Denies: Rash Neurological: Denies: Headache, Weakness Endocrine: Denies: Polyuria, Polydipsia Hematologic: Denies: Easy bruising, Easy bleeding Physical Exam Vital Signs/Narrative: Vital Signs Temp Pulse Resp BP Pulse Ox 10/01/20 20:38 95 10/01/20 19:39 91 10/01/20 19:36 97.1 F L 103 H 22 H 118/61 81 Inital Vital Signs reviewed: Yes General: Well nourished, Well developed, Obese Head: Normocephalic, Atraumatic Eyes: Perrl, EOMI. Negative for: Pale conjunctiva ENT: Moist mucous membranes, No rhinorrhea, TM's clear Neck: Supple, Nontender, No lymphadenopathy, No JVD Cardiovascular: Regular rhythm, No murmurs, Normal S1, Normal S2, Tachycardia Respiratory: Chest nontender, Rales, Diminished, - - Use of accessory muscles and mild retraction Abdomen: Soft, Nontender, Nondistended, Normal bowel sounds, No masses Rectal: Deferred Back: Nontender, Normal Inspection Extremities: Nontender, Edema Skin: No rash, Jaundice - Possibly, No Trauma. Negative for: Cyanosis, Diaphoresis Neurological: Cranial nerves II-XII grossly intact, Normal Strength, Normal Sensation. Negative for: Alert, Oriented x3 Psychological: Normal affect Diagnostic/Tx/Re-eval Chest X-Ray - ED: 1 View, Normal, Heart, Mediastinum, Chronic Changes, CHF, - - Chest x-ray is consistent with pulmonary edema. Impressions Chest X-Ray 10/01/20 20:28 IMPRESSION: Findings consistent with COPD and probable superimposed mild pulmonary interstitial edema. Clinical correlation recommended Electronically Signed: Chung Jett MD at 20:46 EST , Service support , 10/01/20 20:28 Chest 1 View (Portable) [RAD] Stat Laboratory Results 10/01/20 10/01/20 10/01/20 19:45 19:45 19:45 WBC 9.0 RBC 5.09 Hgb 15.3 Hct 46.9 MCV 92.1 MCH 30.1 MCHC 32.6 RDW Std Deviation 45.4 H RDW Coeff of Ritesh 13.4 Plt Count 245 MPV 10.0 Immature Gran % (Auto) 0.600 Neut % (Auto) 55.3 Lymph % (Auto) 33.9 Roberts % (Auto) 7.1 Eos % (Auto) 2.7 Baso % (Auto) 0.4 Absolute Neuts (auto) 5.0 Absolute Lymphs (auto) 3.05 Nucleated RBC % 0 PT 14.7 INR 1.2 APTT 26.0 Sodium 139 Potassium 3.5 Chloride 103 Carbon Dioxide 27.0 Anion Gap 9 BUN 14 Creatinine 1.29 Estim Creat Clear Calc 58.37 Est GFR (MDRD) Af Amer 71 Est GFR (MDRD) Non-Af 59 L BUN/Creatinine Ratio 10.9 Glucose 176 H Lactic Acid Calcium 8.9 Troponin I 0.148 H POC Glucose 10/01/20 10/01/20 20:52 20:53 WBC RBC Hgb Hct MCV MCH MCHC RDW Std Deviation RDW Coeff of Ritesh Plt Count MPV Immature Gran % (Auto) Neut % (Auto) Lymph % (Auto) Roberts % (Auto) Eos % (Auto) Baso % (Auto) Absolute Neuts (auto) Absolute Lymphs (auto) Nucleated RBC % PT INR APTT Sodium Potassium Chloride Carbon Dioxide Anion Gap BUN Creatinine Estim Creat Clear Calc Est GFR (MDRD) Af Amer Est GFR (MDRD) Non-Af BUN/Creatinine Ratio Glucose Lactic Acid Cancelled Calcium Troponin I POC Glucose 204 H - Medical Decision Making With rales, frothy blood-tinged sputum suspect patient is in pulmonary edema. Stat portable chest x-ray was obtained and confirms he is in pulmonary edema. He is mildly fluid overloaded. He was treated with Lasix for diuresis and nitro for preload reduction. [employer] blood work was obtained to rule out anemia, electrolyte abnormality, renal dysfunction and myocardial infarction. - Critical Care Time Critical care time (excluding procedures): 30-74 minutes - Total time 34 minutes which included obtaining history, review of prior records, physical examination, documentation, interpretation of laboratory results and initiation of therapy., Discussing w/Patient &/or Family/Propagation Manager, Discussing w /Consultants, Arranging Admission or Transfer ED Disposition - Plan for ED Patient: Disposition: Acute Care [facility] Diagnosis: Acute pulmonary edema, Acute respiratory failure with hypoxia, Elevated troponin I level, Hyperglycemia Referrals: Eugenio Arias [Primary Care Provider] -
[2020-10-01] MEDS: Furosemide 40 MG/4 ML Vial IV (21:29)
[2020-10-01] MEDS: Nitroglycerin Infusion 250 ML 6 MG CONT INF (21:48)
--- NOTE | 2020-10-01 21:59 | HP.PCM_ITS ---
Problem List (1) Acute pulmonary edema Status: Acute (2) Elevated troponin I level Status: Acute (3) Hyperglycemia Status: Acute (4) IVA on CPAP Status: Acute (5) Shortness of breath Status: Acute (6) Pure hypercholesterolemia Status: Chronic (7) Hypothyroidism Status: Chronic (8) jail use of drug Status: Chronic Comment: Antihyperlipidemic (9) Premature ventricular contraction on electrocardiogram Status: Chronic (10) Palpitations Status: Chronic (11) Abnormal stress test Status: Chronic (12) H/O percutaneous transluminal coronary angioplasty Status: Resolved Comment: R&L heart cath 10/06/15, PCI-PTCA-CX and FFR-RCA 10/22/15 (13) Atherosclerotic heart disease of [place] coronary artery without angina pectoris Status: Chronic Qualifiers: [place] vs. transplanted heart: [place] heart Qualified Code(s): I25.10 - Atherosclerotic heart disease of [place] coronary artery without angina pectoris Comment: S/P angioplasty without stenting to mid LCx and proximal LCx in October 2015; (14) Aortic valve, bicuspid Status: Chronic (15) Essential (primary) hypertension Status: Chronic History of Present Illness Date of Admission: 10/01/20 Chief Complaint: Shortness of breath The patient is a 70 year old M with a significant history of a bicuspid aortic valve; s/p stent; hypertension; IVA on CPAP; and irregular heartbeat who presents emergency department with sudden onset shortness of breath. His symptoms started after shoveling the snow to help someone who was stuck in the snow and after carrying wood. His symptoms started few hours before presentation. His symptoms began to improve after 40 minutes when paramedics gave him oxygen. Associated with his symptom is bloody sputum. Past Medical History Past Medical History (Chronic Problems): Chronic Problems (Last Reviewed 10/01/20 @ 23:[address] Bruce Rose MD) Pure hypercholesterolemia (Chronic) Hypothyroidism (Chronic) jail use of drug (Chronic) Antihyperlipidemic Premature ventricular contraction on electrocardiogram (Chronic) Palpitations (Chronic) Abnormal stress test (Chronic) Atherosclerotic heart disease of [place] coronary artery without angina pectoris (Chronic) S/P angioplasty without stenting to mid LCx and proximal LCx in October 2015; Aortic valve, bicuspid (Chronic) Essential (primary) hypertension (Chronic) Medical History: Medical History (Last Reviewed 10/02/20 @ 00:[address] Bruce Rose MD) IVA on CPAP (Acute) G47.33, Z99.89 Pure hypercholesterolemia (Chronic) E78.00 Hypothyroidism (Chronic) E03.9 jail use of drug (Chronic) Z79.899 Antihyperlipidemic Premature ventricular contraction on electrocardiogram (Chronic) I49.3 Palpitations (Chronic) R00.2 Abnormal stress test (Chronic) R94.39 Atherosclerotic heart disease of [place] coronary artery without angina pectoris (Chronic) I25.10 S/P angioplasty without stenting to mid LCx and proximal LCx in October 2015; Aortic valve, bicuspid (Chronic) Q23.1 Essential (primary) hypertension (Chronic) I10 Allergies levothyroxine Adverse Reaction (Severe, Verified 04/27/20 11:37) Headache Home Medications: Ambulatory Orders Medication Instructions Recorded aspirin 81 mg tablet,delayed 81 mg PO QDAY 12/05/17 release atorvastatin 20 mg tablet 20 mg PO QDAY 12/05/17 clopidogrel 75 mg tablet 75 mg PO QDAY 12/05/17 hydrochlorothiazide 12.5 mg capsule 12.5 mg PO QDAY 12/05/17 tramadol 50 mg tablet 50 mg PO Q6H PRN 06/06/18 calcium carbonate-vitamin D3 600 1 cap PO BID cap 12/17/18 mg (1,500 mg)-400 unit capsule magnesium oxide 500 mg capsule 500 mg PO DAILY cap 12/17/18 pyridoxine (vitamin B6) 100 mg 100 mg PO DAILY 06/19/19 tablet metoprolol succinate 50 mg 50 mg PO DAILY 04/27/20 tablet,extended release 24 hr turmeric root extract 500 mg 500 mg PO BID cap 04/27/20 capsule Acetaminophen [Tylenol Extra 1,000 mg PO BID 10/01/20 Strength] Levothyroxine Sodium [Levoxyl] 125 mcg PO DAILY 10/01/20 Losartan Potassium 50 mg PO DAILY 10/01/20 Pioglitazone [Actos] 30 mg PO DAILY 10/01/20 Potassium Chloride 10 meq PO DAILY 10/01/20 Surgical History: Surgical History (Last Reviewed 10/01/20 @ 23:[address] Bruce Rose MD) H/O percutaneous transluminal coronary angioplasty (Resolved) Z98.61 R&L heart cath 10/06/15, PCI-PTCA-CX and FFR-RCA 10/22/15 History of carpal tunnel surgery of left wrist Z98.890 Elbow Lives: Alone Smoking Status: Former smoker Tobacco Use: Non-smoker Alcohol: None Drugs: None - *Family History Maternal Family History: Family History (Last Reviewed 10/01/20 @ 23:[address] Bruce Rose MD) Brother CAD (coronary artery disease) Myocardial infarction Review of Systems Constitutional: Denies: Chills, Fever, Weight Change HEENT: Denies: Head Aches, Sinus Congestion, Sinus Drainage Cardiovascular: Denies: Chest Pain, Palpitations Respiratory: Reports: Cough, Hemoptysis, Shortness of breath upon exertion, Sputum production. Denies: Shortness of breath at rest Gastrointestinal: Denies: Abdominal Pain, Nausea, Vomiting Genitourinary: Denies: Dysuria Musculoskeletal: Denies: Joint Pain, Joint Tenderness Skin: Denies: Rash, Wounds Neurological: Denies: Numbness, Tingling, Focal weakness Psychiatric: Denies: Anxiety, Depression, Homicidal Ideations, Suicidal I deations Hematologic/ Lymphatic: Denies: Easy Bruising, Easy Bleeding VTE Information - Inpt Only VTE Present on Admission: No VTE Mechan Device Prophylaxis: None VTE Pharm Prophylaxis ordered?: Yes Patient Problems: Active and Suspected Problems (Last Reviewed 10/01/20 @ 23:[address] Bruce Rose MD) Acute pulmonary edema (Acute) Elevated troponin I level (Acute) Hyperglycemia (Acute) Acute respiratory failure with hypoxia (Acute) IVA on CPAP (Acute) Shortness of breath (Acute) - Physical Exam Vitals/I&O's: Vital Signs Temp Pulse Resp BP Pulse Ox 97.1 F L 98 22 H 133/69 H 96 10/01/20 19:36 10/01/20 21:28 10/01/20 21:28 10/01/20 21:48 10/01/20 21:28 Oxygen Flow Rate (L/min) 4 Oxygen Delivery Method Nasal Cannula Weight: 129.3 kg Body Mass Index (BMI) 39.7 Finger Stick Blood Glucose 176 General: Alert, Oriented x3, Cooperative HEENT: Atraumatic, PERRLA, EOMI, Normocephalic Neck: Supple, No JVD, Negative Carotid Bruits Lungs: Diminished, Rales Cardiovascular: Regular rate, Normal S1, Normal S2, No murmurs Abdomen: Bowel Sounds Present, Soft, Non Tender Extremities: Capillary Refill Less than 3 Seconds, Edema - Bilateral legs; 1+ Skin: No rashes, No breakdown Musculoskeletal: No Tenderness to Palpation of Joints or Extremities Neurological: Cranial nerves II-XII grossly intact Psych/Mental Status: Normal Affect, Appropriate Laboratory Results 10/01/20 19:45: WBC 9.0, RBC 5.09, Hgb 15.3, Hct 46.9, MCV 92.1, MCH 30.1, MCHC 32.6, RDW Std Deviation 45.4 H, RDW Coeff of Ritesh 13.4, Plt Count 245, MPV 10.0, Immature Gran % (Auto) 0.600, Neut % (Auto) 55.3, Lymph % (Auto) 33.9, [place] % (Auto) 7.1, Eos % (Auto) 2.7, Baso % (Auto) 0.4, Absolute Neuts (auto) 5.0, Absolute Lymphs (auto) 3.05, Nucleated RBC % 0 10/01/20 19:45: PT 14.7, INR 1.2, APTT 26.0 10/01/20 19:45: Sodium 139, Potassium 3.5, Chloride 103, Carbon Dioxide 27.0, Anion Gap 9, BUN 14, Creatinine 1.29, Estim Creat Clear Calc 58.37, Est GFR (MDRD) Af Amer 71, Est GFR (MDRD) Non-Af 59 L, BUN/Creatinine Ratio 10.9, Glucose 176 H, Calcium 8.9, Troponin I 0.148 H 10/01/20 20:52: POC Glucose 204 H 10/01/20 20:53: Lactic Acid Cancelled Current Medications Nitroglycerin/Dextrose () 250 mls @ 6 mls/hr CONT INF .[id number] [facility]; Protocol Last Admin: 10/01/20 21:48 Dose: 10 mcg/min, 6 mls/hr Documented by: Assessment/Plan All Active Problems (Last Reviewed 10/01/20 @ 23:[address] Bruce Rose MD) Acute pulmonary edema (Acute) Elevated troponin I level (Acute) Hyperglycemia (Acute) Acute respiratory failure with hypoxia (Acute) IVA on CPAP (Acute) Shortness of breath (Acute) H/O percutaneous transluminal coronary angioplasty (Resolved) The patient is a 70 year old M with a significant history of a bicuspid aortic valve; s/p stent; hypertension; IVA on CPAP; and irregular heartbeat who presents emergency department with sudden onset shortness of breath and found to be in acute pulmonary edema. Acute on chronic heart failure with preserved ejection fraction/pulmonary edema Place on monitored bed at progressive care unit stepdown Weight on admission to the floor; and then daily Strict I&O's Radiologist impression of chest x-ray: Findings consistent with COPD and probable superimposed mild pulmonary distal edema. Actual current chest x-ray image and previous chest x-ray image was independently reviewed. I agree radiologist interpretation. EKG independently reviewed confirms sinus rhythm with PVCs. Emergency department labs reviewed showed BNP of 85.9. Received Lasix 40 mg IV at emergency department. Lasix 40 mg IV twice daily ordered. Hold Actos. Was started on a nitroglycerin drip at emergency department; continued. Patient follows up with cardiology. Cardiology consult ordered. Plan was to get cardiac cath which patient declined. Last echocardiogram was on 06/25/2020: Estimated ejection fraction was 55%. Trivial mitral valve insufficiency. Unable to estimate right ventricular systolic pressure/pulmonary artery pressure due to technical difficulty. Patient with bicuspid aortic valve and mild aortic stenosis with trivial aortic valve insufficiency. Echocardiogram will not be ordered at this time since last echocardiogram is within 3 months. Monitor electrolytes and renal function Elevate bilateral lower extremities Fluid restriction of 1500 mls daily Cardiac diet NSTEMI Lovenox therapeutic dose X 1 Continue ASA and plavix Cardiology consult. CAD status post stents Aspirin and Plavix continued Hypertension Blood pressure is not within goal Hydrochlorothiazide; metoprolol and losartan continued. Nitroglycerin drip as above. Trend blood pressure and adjust blood pressure medications. Obstructive sleep apnea Home CPAP continued Hypothyroidism Synthroid continued Chronic pain Tramadol continued DVT prophylaxis Therapeutic dose of lovenox for NSTEMI. Inpatient E&M: 33399 Init Hosp L3
[2020-10-01 22:22] LABS: BNP,B-Type NATRIURETIC PEPTIDE 85.9 pg/mL (0-100)
[2020-10-02] VITALS (35 sets, daily range): BP systolic 89–157; BP diastolic 40–114; PULSE 68–100; RESP 15–26; TEMP 36.3–36.9; O2SAT 88–98
[2020-10-02] MEDS: Insulin Lispro 100 UNIT/ML INSULN.PEN SC ×2 (00:06→21:39)
[2020-10-02 00:20] LABS: Bedside Glucose 160 mg/dL (70-110)
[2020-10-02] MEDS: Enoxaparin 120 MG/0.8 ML Syringe SC (01:23)
[2020-10-02 02:44] LABS: Reflex Lactate? Y
[2020-10-02] MEDS: Levothyroxine 125 MCG Tablet PO (05:24)
[2020-10-02 06:46] LABS: Absolute Lymphocyte Count 2.42 X10^3/uL (0.83-4.51); Absolute Neutrophil Count 7.1 X10^3/uL (2.0-7.7); Basophil# 0.03 X10^3/uL; Basophil% 0.3 % (0-1); Eosinophil# 0.13 X10^3/uL; Eosinophils% 1.2 % (0-5); Hematocrit 42.6 % (40-54); Hemoglobin 13.5 g/dL (13.0-16.5); Lymphocyte # 2.42 X10^3/ul (4.0); Lymphocyte % 22.7 % (19-41); Mean Corp Hgb Conc 31.7 g/dL (32-36); Mean Corpuscular Hgb 29.8 pg (27.0-32.0); Mean Platelet Vol. 9.8 fl (6.2-12.0); Monocyte# 0.88 X10^3/uL; Monocyte% 8.3 % (0-10); NRBC Flagged by Analyzer 0 % (0-5); Neutrophil # 7.14 X10^3/uL (2.7-7.7); Neutrophil % 67.1 % (47-70); Platelet Count 221 K/mm3 (150-450); RBC Distribution Width CV 13.7 % (11.6-14.6); RBC Distribution Width SD 47.2 fl (35.1-43.9); Red Blood Count 4.53 M/mm3 (4.6-6.2); White Blood Count 10.6 K/mm3 (4.4-11.0)
[2020-10-02 06:50] LABS: Bedside Glucose 150 mg/dL (70-110)
[2020-10-02 07:08] LABS: Anion Gap 5 (5-15); BUN 17 mg/dL (7-18); BUN/Creat Ratio 15.2 RATIO (10-20); Calcium,Total 8.6 mg/dL (8.5-10.1); Chloride 105 mmol/L (98-107); Creatinine, Serum 1.12 mg/dL (0.70-1.30); EST Glomerular Filtration Rate 69 mL/min (>60); Est Glom Filt Rate - Afr Amer 84 mL/min (>60); Estimated Creatinine Clearance 67.23 ml/min; Glucose 142 mg/dL (74-106); Potassium 3.7 mmol/L (3.5-5.1); Sodium Level 138 mmol/L (136-145)
[2020-10-02] MEDS: Clopidogrel Bisulfate 75 MG Tablet PO (08:06)
[2020-10-02] MEDS: Potassium Chloride Oral Tablet 20 MEQ 40 MEQ PO (08:06)
[2020-10-02] MEDS: Aspirin E.C. 81 MG Tablet PO (08:07)
[2020-10-02] MEDS: Metoprolol(XL)Succ 50 MG Tablet PO (08:07)
[2020-10-02] MEDS: Losartan Potassium 50 MG Tablet PO (08:07)
--- NOTE | 2020-10-02 08:07 | PCM.PROGNOTE ---
Patient Problems: Active and Suspected Problems (Last Updated 10/02/20 @ 10:[address] Echo Contreras MD) Acute pulmonary edema (Acute) Subjective: Chief complaint: Follow-up after admission for acute on chronic CHF with preserved EF, acute pulmonary edema and non-STEMI. Patient seen and examined. No acute events overnight. This morning, he is on BiPAP. He stated that his breathing is significantly improved. Denied any chest pain. He is afebrile, blood pressure and heart rate are stable, he is on BiPAP. - Physical Exam Vitals/I&O's: Vital Signs Temp Pulse Resp BP Pulse Ox 98.4 F 83 24 H 100/54 L 97 10/02/20 05:00 10/02/20 08:07 10/02/20 07:00 10/02/20 07:00 10/02/20 07:00 Oxygen Flow Rate (L/min) 4 Oxygen Delivery Method CPAP Weight: 270 lb 1.06 oz Body Mass Index (BMI) 37.6 Finger Stick Blood Glucose 176 Intake and Output for Last 24 Hours 09/30/20 10/01/20 10/02/20 23:59 23:59 23:59 Intake Total 55.2 / 55.2 Output Total 1000 / 1000 450 / 450 Balance -1000 / -986.8 -394.8 / -394.8 General: Alert, Oriented x3, Cooperative, - - Minimally short of breath. HEENT: Atraumatic, PERRLA, EOMI Oral: Moist Mucosa, No Gingival or Mucosal Lesions/ Ulcerations Neck: Supple, No JVD, Negative Carotid Bruits, Trachea Midline, Thyroid Normal Size and Texture Lungs: Clear to auscultation, No rhonchi, No wheeze, No rales, Diminished Cardiovascular: Regular rate, Regular Rhythm, Normal S1, Normal S2, PMI Normal Abdomen: Bowel Sounds Present, Soft, Non Tender, Non-Distended, No Hepato-splenomegaly, Obese Extremities: No clubbing, No cyanosis, Edema - Trace edema. Skin: No rashes, No breakdown Lymphatic: No Cervical, Supraclavicular, or Inguinal Adenopathy Neurological: Cranial nerves II-XII grossly intact, Motor Exam 5/5 strength throughout Psych/Mental Status: Normal Affect, Appropriate, Alert and oriented to time, place, person, mood and affect Laboratory Results 10/01/20 19:45: WBC 9.0, RBC 5.09, Hgb 15.3, Hct 46.9, MCV 92.1, MCH 30.1, MCHC 32.6, RDW Std Deviation 45.4 H, RDW Coeff of Ritesh 13.4, Plt Count 245, MPV 10.0, Immature Gran % (Auto) 0.600, Neut % (Auto) 55.3, Lymph % (Auto) 33.9, [place] % (Auto) 7.1, Eos % (Auto) 2.7, Baso % (Auto) 0.4, Absolute Neuts (auto) 5.0, Absolute Lymphs (auto) 3.05, Nucleated RBC % 0 10/01/20 19:45: PT 14.7, INR 1.2, APTT 26.0 10/01/20 19:45: Sodium 139, Potassium 3.5, Chloride 103, Carbon Dioxide 27.0, Anion Gap 9, BUN 14, Creatinine 1.29, Estim Creat Clear Calc 58.37, Est GFR (MDRD) Af Amer 71, Est GFR (MDRD) Non-Af 59 L, BUN/Creatinine Ratio 10.9, Glucose 176 H, Calcium 8.9, Troponin I 0.148 H 10/01/20 19:45: B-Natriuretic Peptide 85.9 10/01/20 20:52: POC Glucose 204 H 10/01/20 20:53: Lactic Acid Cancelled 10/01/20 22:40: Lactic Acid 2.0 10/01/20 23:55: Troponin I 2.670 H* 10/02/20 00:03: POC Glucose 160 H 10/02/20 03:25: Troponin I 3.830 H* 10/02/20 03:25: Lactic Acid 1.0 10/02/20 06:05: WBC 10.6, RBC 4.53 L, Hgb 13.5, Hct 42.6, MCV 94.0, MCH 29.8, MCHC 31.7 L, RDW Std Deviation 47.2 H, RDW Coeff of Ritesh 13.7, Plt Count 221, MPV 9.8, Immature Gran % (Auto) 0.400, Neut % (Auto) 67.1, Lymph % (Auto) 22.7, [place] % (Auto) 8.3, Eos % (Auto) 1.2, Baso % (Auto) 0.3, Absolute Neuts (auto) 7.1, Absolute Lymphs (auto) 2.42, Nucleated RBC % 0 10/02/20 06:05: Sodium 138, Potassium 3.7, Chloride 105, Carbon Dioxide 28.0, Anion Gap 5, BUN 17, Creatinine 1.12, Estim Creat Clear Calc 67.23, Est GFR (MDRD) Af Amer 84, Est GFR (MDRD) Non-Af 69, BUN/Creatinine Ratio 15.2, Glucose 142 H, Calcium 8.6 10/02/20 06:05: Troponin I 2.960 H* 10/02/20 06:46: POC Glucose 150 H Clinical Impression(s) from Imaging Studies Chest X-Ray 10/01/20 20:28 IMPRESSION: Findings consistent with COPD and probable superimposed mild pulmonary interstitial edema. Clinical correlation recommended Electronically Signed: Chung Jett MD at 20:46 EST , Service support , Current Medications Acetaminophen (Acetaminophen 325 Mg Tablet) 650 mg PO Q6H PRN PRN PRN Reason: Pain Score 1-10/Temp > 100.7 F Acetaminophen (Acetaminophen 500 Mg Tablet) 1,000 mg PO BID [facility] Last Admin: 10/01/20 23:51 Dose: Not Given Documented by: Aspirin (Aspirin E.C. 81 Mg Tablet) [facility] Last Admin: 10/02/20 08:07 Dose: 81 mg Documented by: Atorvastatin Calcium (Atorvastatin Calcium 20 Mg Tablet) 20 mg PO QHS [facility] Calcium/Vitamin D (Calcium Carb/Vitamin D 1 Tablet Tablet) [facility] Clopidogrel Bisulfate (Clopidogrel Bisulfate 75 Mg Tablet) 75 mg PO DAILY [facility] Last Admin: 10/02/20 08:06 Dose: 75 mg Documented by: Dextrose (Dextrose 50%-Water 25 Gm/50 Ml Disp.Syrin) 0 gm IV X1 PRN; Protocol PRN Reason: Hypoglycemia Furosemide (Furosemide 40 Mg/4 Ml Vial) 40 mg IV BID@1000,1800 [facility] Glucagon (Glucagon 1 Mg/Ml Syringe) 1 mg IM .X1 PRN PRN Reason: Hypoglycemia Guaifenesin (Guaifenesin 10 Ml Udc (200mg/10ml)) 20 ml PO Q4H PRN PRN PRN Reason: COUGH Hydrochlorothiazide (Hydrochlorothiazide 12.5mg) 12.5 mg PO DAILY [facility] Nitroglycerin/Dextrose () 250 mls @ 6 mls/hr CONT INF .[id number] [facility]; Protocol Last Titration: 10/02/20 07:00 Dose: 10 mcg/min, 6 mls/hr Documented by: Insulin Human Lispro (Insulin Lispro 100 Unit/Ml Insuln.Pen) 0 unit SC ACHS [facility]; Protocol Last Admin: 10/02/20 06:50 Dose: Not Given Documented by: Levothyroxine Sodium (Levothyroxine 125 Mcg Tablet) 125 mcg PO DAILY@0600 [facility] Last Admin: 10/02/20 05:24 Dose: 125 mcg Documented by: Losartan Potassium (Losartan Potassium 50 Mg Tablet) 50 mg PO DAILY [facility] Last Admin: 10/02/20 08:07 Dose: 50 mg Documented by: Metoprolol Succinate (Metoprolol(Xl)Succ 50 Mg Tablet) 50 mg PO DAILY [facility] Last Admin: 10/02/20 08:07 Dose: 50 mg Documented by: Ondansetron HCl (Ondansetron 4 Mg/2 Ml Vial) 4 mg IV Q8H PRN PRN PRN Reason: NAUSEA/VOMITING Potassium Chloride (Potassium Chloride Oral Tablet 20 Meq) [facility] Last Admin: 10/02/20 08:06 Dose: 40 meq Documented by: Pyridoxine HCl (Pyridoxine Hcl 100 Mg Tablet) 100 mg PO DAILY [facility] Sodium Chloride (0.9% Saline Lock 10 Ml Syringe) 10 - 40 ml IV UD PRN PRN Reason: SALINE FLUSH Tramadol HCl (Tramadol 50 Mg Tablet) 50 mg PO Q6H PRN PRN PRN Reason: PAIN 1-05/23 Medical Necessity - Tobacco Use Smoking Status: Former smoker Tobacco Use: Non-smoker Assessment/Plan All Active Problems (Last Updated 10/02/20 @ 10:[address] Echo Contreras MD) Acute [id number] myocardial infarction (Acute) Acute respiratory failure with hypoxia (Acute) Acute pulmonary edema (Acute) This is a 70 years old male patient presented to the emergency room because of sudden onset shortness of breath and he was found to have acute on chronic diastolic CHF/acute pulmonary edema complicated by acute hypoxic respiratory failure and he was found to have acute non-ST elevation MD. #1 acute on chronic CHF with preserved ejection fraction/acute pulmonary edema: He is on IV Lasix and IV nitroglycerin drip. This morning he is feeling better, remains on BiPAP. Denied any chest pain. EKG revealed normal sinus rhythm, inverted T waves in leads III, V3, V4, V5 and V6, no acute ST elevation. Troponin is elevated, highest was 2.83, it is trending down. Cardiology on the case, patient went for cardiac catheterization, report is pending. Decision was made to go for medical treatment. 2D echocardiogram ordered. Probably will need to discontinue IV medication drip. Patient is on aspirin, statins, Plavix, losartan and metoprolol. Plan to continue same treatment. #2 acute hypoxic respiratory failure: Secondary to #1. He had a history of sleep apnea as well and has been on CPAP at night. He is not on oxygen during daytime. Currently, he is on BiPAP. Plan to continue IV diuresis as above, wean off oxygen as tolerated. #3 acute non-ST ovation MD: EKG reviewed as above. Troponin is elevated as mentioned above. Patient denied any chest pain. He went for cardiac catheterization, decision was made for medical treatment. Cardiac cath report is pending. He is on aspirin, statins, Plavix, losartan and metoprolol. Plan to continue same treatment. #4 CAD status post angioplasty: Without prior history of stents or bypass surgery. Plan as above, continue current treatment. #5 hypertension: Blood pressure stable, continue losartan and metoprolol. #6 hypothyroidism: Stable, continue levothyroxine. #7 obstructive sleep apnea: Stable, continue CPAP at night when he comes off BiPAP. #8 mild aortic stenosis/bicuspid aortic valve: 2D echocardiogram ordered. #9 suspected COPD: Currently on BiPAP. Will do albuterol inhaler as needed. #10 DVT prophylaxis: Start subcu Lovenox. This note was generated with [employer] dictation software. It may contain incorrect words, spelling, and punctuation that were not noted in checking the note before signing. Inpatient E&M: 62694 Subs Hosp L2
--- NOTE | 2020-10-02 08:53 | CON.PCM_ITS ---
Reason for Consult Date of Consultation: 10/02/20 Reason for Consultation: Shortness of breath History of Present Illness: The patient is a 70 year old M with past medical history significant for hypertension, aortic calcification possible bicuspid aortic valve, mild coronary artery disease who presented to the emergency room yesterday after shoveling snow and getting markedly short of breath. He also has a history of obstructive sleep apnea. In the emergency room he was noted to be hypotensive and markedly short of breath and needed to be started on intravenous nitroglycerin. He was also given intravenous diuresis. He was put on a BiPAP overnight and did well. His cardiac enzymes subsequently became abnormal and cardiology was called for further evaluation and management. Currently he is pain-free. He has had no dizziness or diaphoresis no near syncope or syncope. He previously underwent a cardiac catheterization in 2015. At that time moderate coronary artery disease was noted. He subsequently underwent an FFR of his right coronary artery which did not demonstrate any significant stenosis and therefore medical therapy was recommended. In June of this year he underwent pharmacologic myocardial perfusion stress test which demonstrated no evidence of ischemia. [] Past Medical History Allergies/Adverse Reactions: Allergies No Known Allergies Allergy (Verified 10/01/20 23:25) Home Medications: Ambulatory Orders Medication Instructions Recorded aspirin 81 mg tablet,delayed 81 mg PO QDAY 12/05/17 release atorvastatin 20 mg tablet 20 mg PO QDAY 12/05/17 clopidogrel 75 mg tablet 75 mg PO QDAY 12/05/17 hydrochlorothiazide 12.5 mg capsule 12.5 mg PO QDAY 12/05/17 tramadol 50 mg tablet 50 mg PO Q6H PRN 06/06/18 calcium carbonate-vitamin D3 600 1 cap PO BID cap 12/17/18 mg (1,500 mg)-400 unit capsule magnesium oxide 500 mg capsule 500 mg PO DAILY cap 12/17/18 pyridoxine (vitamin B6) 100 mg 100 mg PO DAILY 06/19/19 tablet metoprolol succinate 50 mg 50 mg PO DAILY 04/27/20 tablet,extended release 24 hr turmeric root extract 500 mg 500 mg PO BID cap 04/27/20 capsule Acetaminophen [Tylenol Extra 1,000 mg PO BID 10/01/20 Strength] Levothyroxine Sodium [Levoxyl] 125 mcg PO DAILY 10/01/20 Losartan Potassium 50 mg PO DAILY 10/01/20 Pioglitazone [Actos] 30 mg PO DAILY 10/01/20 Potassium Chloride 10 meq PO DAILY 10/01/20 Past Medical History (Chronic Problems): Chronic Problems (Last Reviewed 10/02/20 @ 00:[address] Bruce Rose MD) Pure hypercholesterolemia (Chronic) Hypothyroidism (Chronic) jail use of drug (Chronic) Antihyperlipidemic Premature ventricular contraction on electrocardiogram (Chronic) Palpitations (Chronic) Abnormal stress test (Chronic) Atherosclerotic heart disease of [place] coronary artery without angina pectoris (Chronic) S/P angioplasty without stenting to mid LCx and proximal LCx in October 2015; Aortic valve, bicuspid (Chronic) Essential (primary) hypertension (Chronic) - *Family History Maternal Family History: Family History (Last Reviewed 10/01/20 @ 23:[address] Bruce Rose MD) Brother CAD (coronary artery disease) Myocardial infarction Lives: Alone Smoking Status: Former smoker Tobacco Use: Non-smoker Alcohol: None Drugs: None Review of Systems - Review of Systems General: Denies: Fever, Night Sweats, Fatigue HEENT: Denies: Vision Change Cardiovascular: Reports: Shortness of Breath, Shortness of Breath with Exertion. Denies: Chest Discomfort, Orthopnea, PND, Peripheral Edema, Palpitations, Lightheadedness, Dizziness, Near Syncope, Syncope Respiratory: Denies: Cough, Sputum Production, Hemoptysis Gastrointestinal: Denies: Hematemesis, Hematochezia, Melena Genitourinary: Denies: Dysuria, Hematuria Skin: Denies: Rash Neurological: Denies: Dizziness Psychiatric: Denies: Anxiety Endocrine: Denies: Unexplained Weight Loss Hematologic/ Lymphatic: Denies: Anemia Subjectve: Pleasant gentleman in no distress Objective: Vital Signs Temp Pulse Resp BP Pulse Ox 98.4 F 83 19 H 100/54 L 97 10/02/20 05:00 10/02/20 08:07 10/02/20 07:26 10/02/20 07:00 10/02/20 07:26 Oxygen Flow Rate (L/min) 4 Oxygen Delivery Method CPAP Weight: 270 lb 1.06 oz Body Mass Index (BMI) 37.6 Finger Stick Blood Glucose 176 Intake and Output for Last 24 Hours 09/30/20 10/01/20 10/02/20 23:59 23:59 23:59 Intake Total 55.2 / 55.2 Output Total 1000 / 1000 450 / 450 Balance -1000 / -986.8 -394.8 / -394.8 General: Awake, Alert, Oriented x 3 HEENT: PERRL, EOMI, Sclera Non Icteric Neck: Supple, Good ROM, No Lymph Node Enlargement Lungs: Clear to auscultation Cardiovascular: Regular Rhythm, Normal S1, Normal S2, No Rubs, No Gallops Murmur Murmur: Grade 2/6, Early Systolic, LLSB Vascular: No Carotid Bruits, Normal Femoral Pulses, Normal Radial Pulses, Normal Dorsalis Pedal Pulse, Normal Posterior Tibial Pulses Abdomen: Bowel Sounds Present, Soft, Non Tender, No HSM, No Organomegaly Extremities: No Cyanosis, No Clubbing, No edema Musculoskeletal: No Erythema Skin: No Rashes Lymphatic: No Lymph Node Enlargement Neurological: No Focal Motor or Sensory Deficit 10/01/20 19:45: WBC 9.0, RBC 5.09, Hgb 15.3, Hct 46.9, MCV 92.1, MCH 30.1, MCHC 32.6, Plt Count 245, MPV 10.0, Immature Gran % (Auto) 0.600, Neut % (Auto) 55.3, Lymph % (Auto) 33.9, [place] % (Auto) 7.1, Eos % (Auto) 2.7, Baso % (Auto) 0.4, Absolute Neuts (auto) 5.0, Nucleated RBC % 0 10/01/20 19:45: PT 14.7, INR 1.2, APTT 26.0 10/01/20 19:45: Sodium 139, Potassium 3.5, Chloride 103, Carbon Dioxide 27.0, Anion Gap 9, BUN 14, Creatinine 1.29, Est GFR (MDRD) Af Amer 71, Est GFR (MDRD) Non-Af 59 L, BUN/Creatinine Ratio 10.9, Glucose 176 H, Calcium 8.9, Troponin I 0.148 H 10/01/20 19:45: B-Natriuretic Peptide 85.9 10/01/20 20:53: Lactic Acid Cancelled 10/01/20 22:40: Lactic Acid 2.0 10/01/20 23:55: Troponin I 2.670 H* 10/02/20 03:25: Troponin I 3.830 H* 10/02/20 03:25: Lactic Acid 1.0 10/02/20 06:05: WBC 10.6, RBC 4.53 L, Hgb 13.5, Hct 42.6, MCV 94.0, MCH 29.8, MCHC 31.7 L, Plt Count 221, MPV 9.8, Immature Gran % (Auto) 0.400, Neut % (Auto) 67.1, Lymph % (Auto) 22.7, [place] % (Auto) 8.3, Eos % (Auto) 1.2, Baso % (Auto) 0.3, Absolute Neuts (auto) 7.1, Nucleated RBC % 0 10/02/20 06:05: Sodium 138, Potassium 3.7, Chloride 105, Carbon Dioxide 28.0, Anion Gap 5, BUN 17, Creatinine 1.12, Est GFR (MDRD) Af Amer 84, Est GFR (MDRD) Non-Af 69, BUN/Creatinine Ratio 15.2, Glucose 142 H, Calcium 8.6 10/02/20 06:05: Troponin I 2.960 H* Rhythm: EKG: Normal sinus rhythm with frequent premature ventricular complexes ECHO: Stress Test: Cardiac Cath: PCI: CT Surgery: Holter monitor: EPS: PPM: CXR: Chest CT Scan: Assessment/Plan 1. Non-ST elevation myocardial infarction * The patient presents with a non-ST elevation myocardial infarction. The patient has underlying coronary artery disease. My recommendation at this time will be for him to undergo a left heart catheterization and depending on the findings further recommendations will be made. * I have discussed the above with the patient who understands and agrees to proceed. This will be arranged this morning. * 2. Hypertension * Patient's blood pressure appears to be have been elevated. He was started on intravenous nitroglycerin and is doing better at this time. No major changes will be made. * 3. Mild aortic stenosis * . Patient was noted to have an abnormal aortic valve. At some point it may be helpful to perform a transesophageal echocardiogram to assess his valve anatomy. * * Thank you for allowing me to participate in the care of your patient. Please don't hesitate to call if any issues arise.
--- NOTE | 2020-10-02 09:33 | ECHOCS_ITS ---
Reason For Study: S/P UT Procedure This was a 2D Doppler, Color Flow transthoracic echocardiogram. The study was technically difficult. 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 Contrast injection was performed. Exam performed portable in patient room. Left Ventricle Normal LV size. Segmental dysfunction with preserved ejection fraction (see wall motion). The estimated ejection fraction is 65 %. No evidence for diastolic dysfunction. Infero-Basal: Hypokinetic. Mid-Anterior : Hypokinetic. Mid-Inferior: Hypokinetic. Mid-inferoseptal : Hypokinetic. Right Ventricle Normal RV size. Normal systolic function. Atria Normal left atrium. Normal right atrium. Bubble contrast study negative for right to left interatrial shunt. Mitral Valve There is mild mitral annular calcification. Normal mitral valve. Trivial mitral valve insufficiency. Tricuspid Valve Normal tricuspid valve. Trivial tricuspid valve insufficiency. Unable to estimate RV systolic pressure/pulmonary artery pressure due to technically difficult study. Aortic Valve Based upon the 2D echocardiographic images obtained the aortic valve apparatus is not well visualized, however, bicuspid aortic valve with a fused and calcified raphae cannot be excluded. Severe focal aortic valve calcification. Mild aortic stenosis. Trivial aortic valve insufficiency. Pulmonic Valve The pulmonic valve is not well visualized. Great Vessels Normal sized aortic root. Pericardium/Pleural No pericardial effusion. Medication Diluted definity 3.0ml given slow IV push to enhance endocardial definition. MMode/2D Measurements & Calculations LVIDd: 5.3 cm IVSd: 1.2 cm LVOT diam: 2.4 cm LVIDs: 3.6 cm LVPWd: 1.0 cm RVDd: 3.3 cm FS: 33.2 % LVOT area: 4.5 cm2 Ao root diam: 3.2 cm LAV(MOD-bp): 44.2 ml LVAd ap4: 29.8 cm2 LAV(MOD-bp) Indexed: 18.4 ml/m2 EDV(MOD-sp4): 78.4 ml LAV(MOD-sp2): 57.1 ml EDV(sp4-el): 81.8 ml LAV(MOD-sp4): 32.9 ml LVAs ap4: 15.0 cm2 ESV(MOD-sp4): 24.1 ml ESV(sp4-el): 24.4 ml EF(MOD-sp4): 69.3 % EF(sp4-el): 70.1 % SV(MOD-sp4): 54.4 ml SV(sp4-el): 57.4 ml LA A4 area: 13.9 cm2 LA dimension(2D): 3.3 cm RA A4 area: 11.9 cm2 Time Measurements MV dec time: 0.28 sec Doppler Measurements & Calculations MV E max tom: 74.1 cm/sec Lat Peak E' Tom: 9.5 cm/sec Med Peak E' Tom: 6.2 cm/sec MV A max tom: 99.2 cm/sec E/E' lat: 7.8 E/E' med: 12.0 MV E/A: 0.75 Ao V2 max: 264.0 cm/sec LV V1 max: 97.1 cm/sec SV(LVOT): 94.0 ml Ao max P.9 mmHg LV V1 max P.8 mmHg Ao V2 mean: 194.5 cm/sec LV V1 mean P.3 mmHg Ao mean P.3 mmHg LV V1 mean: 72.5 cm/sec Ao V2 VTI: 53.3 cm LV V1 VTI: 20.9 cm RODGER(I,D): 1.8 cm2 RODGER(V,D): 1.7 cm2 PA V2 max: 92.1 cm/sec Interpretation Summary The study was technically difficult. Contrast injection was performed. Segmental dysfunction with preserved ejection fraction (see wall motion). The estimated ejection fraction is 65 %. There is mild mitral annular calcification. Trivial mitral valve insufficiency. Trivial tricuspid valve insufficiency. Based upon the 2D echocardiographic images obtained the aortic valve apparatus is not well visualized, however, bicuspid aortic valve with a fused and calcified raphae cannot be excluded. Severe focal aortic valve calcification. Mild aortic stenosis. Trivial aortic valve insufficiency. Unable to estimate RV systolic pressure/pulmonary artery pressure due to technically difficult study. No evidence for diastolic dysfunction. Consider further evaluation of aortic valve anatomy and physiology with transesophageal echocardiogram if clinically indicated. Ordering Physician: Branden Cole Referring Physician: Eugenio Arias Performed By: Marsha Rooney, RDCS, RVT
--- NOTE | 2020-10-02 10:58 | CASEMGMT ---
MALIKA BOATENG assessment: Face to Face with patient for initial transition planning/care coordination assessment. MALIKA BOATENG introduced self and role at [facility], pt voices understanding and consents to assessment at this time. Pt is lying in bed in no distress at this time. Pt is A/Ox4 at this time and answers all questions appropriately at this time. Care providers, pharmacy, and demographics verified at this time. Presentation: Pt c/o SOB which started after exertion. Red tinged sputum when this occurred as well. Admitting dx: Acute on Chronic HF w/ preserved EF PCP: Hugo Specialists: Douglas, cardio; Sibilia, pulm; ENT Preferred Pharmacy: [facility] Insurance: AeR Prescription Benefit: AeR Living Will/HPOA: Pt states has LW/HPOA and is aware that they are not on file at [facility] at this time. Pt states his , Mona Calhoun, is HPOA. LNOK: Mona Calhoun, /HPOA Living Arrangements: Pt states lives with in mobile home with 5 steps in and states no concerns at home at this time. Pt states is independent with ADL's. Transportation: Pt states drives self and states no transportation concerns at this time. DME/HHC: Pt states has a cpap thru [facility] and states no need for any further DME at this time. Pt states no hx of HHC or SNF in the past. Pt states no concerns with going home at time of discharge. Pt states is retired. Pt states does not smoke cigarettes but does drink ETOH occasionally. Pt states no further concerns/needs at this time. CM to follow for any further discharge planning/needs. Advised pt to ask for CM if any further questions/concerns/needs arise, voices understanding. Pt Goal: Home [place] MALIKA BOATENG
[2020-10-02] MEDS: 0.9% Normal Saline 1,000 ML 50 ML IV (11:29)
[2020-10-02] MEDS: Acetaminophen 500 MG Tablet 1000 MG PO ×2 (11:32→21:39)
[2020-10-02] MEDS: Pyridoxine HCl 100 MG Tablet PO (11:32)
[2020-10-02] MEDS: Calcium Carb/Vitamin D 1 TABLET Tablet PO (11:32)
[2020-10-02] MEDS: hydroCHLOROthiazide 12.5mg 12.5 MG PO (11:33)
[2020-10-02] MEDS: Furosemide 40 MG/4 ML Vial IV ×2 (11:33→17:34)
[2020-10-02 12:40] LABS: Bedside Glucose 134 mg/dL (70-110)
--- NOTE | 2020-10-02 14:02 | PN.CARD_ITS ---
Subjectve: The patient underwent diagnostic cardiac catheterization earlier this day. He appears to be without obvious adverse event. Objective: Vital Signs Temp Pulse Resp BP Pulse Ox 98.3 F 71 16 151/74 H 95 10/02/20 11:15 10/02/20 12:58 10/02/20 12:58 10/02/20 12:58 10/02/20 12:58 Oxygen Flow Rate (L/min) 2 Oxygen Delivery Method Nasal Cannula Weight: 270 lb 1.06 oz Body Mass Index (BMI) 37.6 Finger Stick Blood Glucose 176 Intake and Output for Last 24 Hours 09/30/20 10/01/20 10/02/20 23:59 23:59 23:59 Intake Total 319.95 / 319.95 Output Total 1000 / 1000 950 / 950 Balance -1000 / -986.8 -630.05 / -630.05 General: Awake, Alert, Oriented x 3, Cooperative, No Acute Distress, Obese HEENT: Atraumatic, Normocephalic, PERRL, EOMI, Sclera Non Icteric Neck: Supple, Good ROM, No JVD Lungs: Diminished Vaibhav Bases Cardiovascular: Regular Rhythm, Normal S1, Normal S2 Murmur Murmur: Grade 2/6, Mid Systolic, LLSB, LVOT Vascular: Normal Femoral Pulses Abdomen: Bowel Sounds Present, Soft Neurological: No Focal Motor or Sensory Deficit Psych/Mental Status: Appropriate 10/01/20 19:45: WBC 9.0, RBC 5.09, Hgb 15.3, Hct 46.9, MCV 92.1, MCH 30.1, MCHC 32.6, Plt Count 245, MPV 10.0, Immature Gran % (Auto) 0.600, Neut % (Auto) 55.3, Lymph % (Auto) 33.9, [place] % (Auto) 7.1, Eos % (Auto) 2.7, Baso % (Auto) 0.4, Absolute Neuts (auto) 5.0, Nucleated RBC % 0 10/01/20 19:45: PT 14.7, INR 1.2, APTT 26.0 10/01/20 19:45: Sodium 139, Potassium 3.5, Chloride 103, Carbon Dioxide 27.0, Anion Gap 9, BUN 14, Creatinine 1.29, Est GFR (MDRD) Af Amer 71, Est GFR (MDRD) Non-Af 59 L, BUN/Creatinine Ratio 10.9, Glucose 176 H, Calcium 8.9, Troponin I 0.148 H 10/01/20 19:45: B-Natriuretic Peptide 85.9 10/01/20 20:53: Lactic Acid Cancelled 10/01/20 22:40: Lactic Acid 2.0 10/01/20 23:55: Troponin I 2.670 H* 10/02/20 03:25: Troponin I 3.830 H* 10/02/20 03:25: Lactic Acid 1.0 10/02/20 06:05: WBC 10.6, RBC 4.53 L, Hgb 13.5, Hct 42.6, MCV 94.0, MCH 29.8, MCHC 31.7 L, Plt Count 221, MPV 9.8, Immature Gran % (Auto) 0.400, Neut % (Auto) 67.1, Lymph % (Auto) 22.7, [place] % (Auto) 8.3, Eos % (Auto) 1.2, Baso % (Auto) 0.3, Absolute Neuts (auto) 7.1, Nucleated RBC % 0 10/02/20 06:05: Sodium 138, Potassium 3.7, Chloride 105, Carbon Dioxide 28.0, Anion Gap 5, BUN 17, Creatinine 1.12, Est GFR (MDRD) Af Amer 84, Est GFR (MDRD) Non-Af 69, BUN/Creatinine Ratio 15.2, Glucose 142 H, Calcium 8.6 10/02/20 06:05: Troponin I 2.960 H* Rhythm: Sinus rhythm ECHO: Interpretation Summary The study was technically difficult. Contrast injection was performed. Segmental dysfunction with preserved ejection fraction (see wall motion). The estimated ejection fraction is 65 %. There is mild mitral annular calcification. Trivial mitral valve insufficiency. Trivial tricuspid valve insufficiency. Based upon the 2D echocardiographic images obtained the aortic valve apparatus is not well visualized, however, bicuspid aortic valve with a fused and calcified raphae cannot be excluded. Severe focal aortic valve calcification. Mild aortic stenosis. Trivial aortic valve insufficiency. Unable to estimate RV systolic pressure/pulmonary artery pressure due to technically difficult study. No evidence for diastolic dysfunction. Consider further evaluation of aortic valve anatomy and physiology with transesophageal echocardiogram if clinically indicated. Cardiac Cath: CONCLUSIONS [place] Multivessel CAD Aortic valve: eccentric appearing RECOMMENDATIONS Risk factor modification Medical therapy Consider further evaluation of the aortic valve with TTE / BENNETT Surgery consult for coronary revascularization Surgery consult for valvular disease DESCRIPTION OF PROCEDURE The patient arrived to the procedure lab. The risks and benefits of the procedure as well as a full description of our services here and current unavailability of surgical backup were fully explained to the patient and/or their significant other prior to the catheterization. The Timeout was completed, verifying the correct patient and procedure. The patient's procedural site was prepped and draped in the usual fashion. Local anesthetic was given subcutaneously to right radial region with Lidocaine 2%. Using a modified S eldinger technique, arterial access was obtained via the right radial artery, a 6Fr sheath was inserted. Left Coronary Artery selective angiography was performed in multiple views using a 5 Fr. 4.0 [place] catheter. Right Coronary Artery selective angiography was then performed in multiple views using a 5 Fr. 4.0 [place] catheter. Ascending (root) aorta selective angiography was then performed in single view. Ascending (root) aorta selective angiography was then performed in single view.The arterial sheath was pulled and a TR Band was applied for hemostasis CORONARY ANGIOGRAPHY DOMINANCE: Right Dominant LEFT HEART ASSESSMENT Left Ventricular Ejection Fraction: Not assessed LEFT MAIN: Angiographically normal LEFT ANTERIOR DESCENDING ARTERY: OSTIAL LAD: 25 % Stenosis PROX LAD: Mild calcification, 50 % Stenosis MID LAD: s/p DX: 75 % Stenosis SEPTAL: ostial: 95 % Stenosis CIRCUMFLEX ARTERY: OSTIAL CIRC: 50 % Stenosis PROX CIRC: 85 % Stenosis MID CIRC: 50 % Stenosis, diffuse: eccentric: 25 % Stenosis RIGHT CORONARY ARTERY: Mild calcification PROX RCA: eccentric: 50 % Stenosis DISTAL RCA: 50 % Stenosis VALVE FINDINGS: eccentric appearing Aortic valve: eccentric appearing AORTIC ROOT: Angiographically normal Medical Necessity - Tobacco Use Smoking Status: Former smoker Tobacco Use: Non-smoker Assessment/Plan 1. Non-ST segment elevation [place] The patient was referred for further of a non-ST segment elevation FL with diagnostic cardiac catheterization. He underwent diagnostic cardiac catheterization. He does have multivessel CAD. He also has concerns of a bicuspid aortic valve with an element of aortic valve restriction/stenosis. At the present time he is going to continue medical management. His case was reviewed with interventional cardiology. At the moment the recommendation has been made to continue medical therapy, further assess the patient's aortic valve, and consider a CT surgery consultation for possible CABG +/- aortic valve replacement. 2. CAD status post previous LCx PTCA (no stent) The patient has undergone previous LCx PTCA-no stent-in the past (2015). At the present time he does continue to have multivessel CAD including concerns of the LAD, LCx, and the RCA system. As noted above his case was discussed with interventional cardiology. The recommendation has been made for continued medical therapy and consideration for CT surgery consultation for possible CABG. 3. Aortic valve disease The patient has had findings concerning for an underlying bicuspid aortic valve based upon his previous echocardiographic studies as well as his diagnostic cardiac catheterization with an aortic root evaluation suggesting what appears to be an eccentric aortic valve. At the present time he is going to recuperate from his current event. It would be reasonable to consider a future BENNETT to further evaluate his aortic valve anatomy and physiology. He will need to be considered for a CT surgery consultation for his vascular disease and at the same time for any input on his aortic valve disease. 4. Hyperlipidemia He will continue risk factor modification medical therapy. 5. Hypertension His medications need to be adjusted to maintain adequate blood pressure control. Comment: The patient's case has been discussed and reviewed with the patient. Thank you for allowing me to participate in the care of your patient. This note was generated using a voice recognition system and there may be incorrect words, spelling or punctuation that were not noted when reviewing the office note prior to saving.
--- NOTE | 2020-10-02 16:48 | CL.D_ITS ---
Patient Name: SUE RIOS Study Date: 10/02/2020 Performing: Branden Cole MD Ht: 71 inches 180 cm : 1950 Wt: 271.5 lbs 123 kg Age: 70 Gender: male BSA: 2.4 PROCEDURE(S) PERFORMED [id number] ROOT ANGIO WITH HEART CATH CLINICAL PROFILE AND INDICATIONS Indications: ACS <= 24 hrs, Suspected CAD, Valvular Disease Heart Failure: None Stress/Imaging Stress/Image Study Performed: No Angina Classification Anginal Classification w/in 2 Weeks: Anginal Equivalent Dyspnea CAD Presentations: Non-STEMI. CONCLUSIONS [place] Multivessel CAD Aortic valve: eccentric appearing RECOMMENDATIONS Risk factor modification Medical therapy Consider further evaluation of the aortic valve with TTE / BENNETT Surgery consult for coronary revascularization Surgery consult for valvular disease DESCRIPTION OF PROCEDURE The patient arrived to the procedure lab. The risks and benefits of the procedure as well as a full d escription of our services here and current unavailability of surgical backup were fully explained to the patient and/or their significant other prior to the catheterization. The Timeout was completed, verifying the correct patient and procedure. The patient's procedural site was prepped and draped in the usual fashion. Local anesthetic was given subcutaneously to right radial region with Lidocaine 2% . Using a modified Seldinger technique, arterial access was obtained via the right radial artery, a 6 Fr sheath was inserted. Left Coronary Artery selective angiography was performed in multiple views u sing a 5 Fr. 4.0 [place] catheter. Right Coronary Artery selective angiography was then performed in mu ltiple views using a 5 Fr. 4.0 [place] catheter. Ascending (root) aorta selective angiography was then performed in single view. Ascending (root) aorta selective angiography was then performed in single view.The arterial sheath was pulled and a TR Band was applied for hemostasis CORONARY ANGIOGRAPHY DOMINANCE: Right Dominant LEFT HEART ASSESSMENT Left Ventricular Ejection Fraction: Not assessed LEFT MAIN: Angiographically normal LEFT ANTERIOR DESCENDING ARTERY: OSTIAL LAD: 25 % Stenosis PROX LAD: Mild calcification, 50 % Stenosis MID LAD: s/p DX: 75 % Stenosis SEPTAL: ostial: 95 % Stenosis CIRCUMFLEX ARTERY: OSTIAL CIRC: 50 % Stenosis PROX CIRC: 85 % Stenosis MID CIRC: 50 % Stenosis, diffuse: eccentric: 25 % Stenosis RIGHT CORONARY ARTERY: Mild calcification PROX RCA: eccentric: 50 % Stenosis DISTAL RCA: 50 % Stenosis VALVE FINDINGS: eccentric appearing Aortic valve: eccentric appearing AORTIC ROOT: Angiographically normal COMPLICATIONS No Complications PROCEDURE MEDICATIONS Versed 1 mg IV Fentanyl 50 mcg IV Oxygen: 4 L/min via nasal cannula Heparin diluted in 23cc Heparinized saline. Patient given 10cc IA of this solution. 10/02/2020 08:46: 33 Nitro glycerin 25mg / 250ml D5W @ 10 mcg/min IV started on PCU. Still is on in procedure lab. 10/02/19 08:38:53 Verapamil 2.5mg, Ntg 100mcgs, 2000 units of Heparin diluted in 23cc Heparinized saline. Patient give n 10cc IA of this solution. 10/02/2020 08:46:33 SUMMARY OF HEMODYNAMIC DATA Time AIR REST ECG 08:33:14 AO 108/60 (80) SA 08:52:02 Signed By Branden Cole MD On 10/02/2020 16:47:53 Branden Cole MD
[2020-10-02] MEDS: Nitroglycerin Oint 1 INCH PACKET TD (17:34)
[2020-10-02 17:56] LABS: Bedside Glucose 141 mg/dL (70-110)
[2020-10-02] MEDS: Atorvastatin Calcium 20 MG Tablet PO (21:39)
[2020-10-02 21:50] LABS: Bedside Glucose 150 mg/dL (70-110)
[2020-10-03] VITALS (14 sets, daily range): BP systolic 101–138; BP diastolic 55–85; PULSE 63–86; RESP 16–18; TEMP 36.6–37.1; O2SAT 91–97
[2020-10-03] MEDS: Nitroglycerin Oint 1 INCH PACKET TD ×4 (00:06→17:39)
[2020-10-03 06:17] LABS: Absolute Lymphocyte Count 2.08 X10^3/uL (0.83-4.51); Absolute Neutrophil Count 5.6 X10^3/uL (2.0-7.7); Basophil# 0.04 X10^3/uL; Basophil% 0.4 % (0-1); Eosinophil# 0.24 X10^3/uL; Eosinophils% 2.7 % (0-5); Hematocrit 44.5 % (40-54); Hemoglobin 13.8 g/dL (13.0-16.5); Lymphocyte # 2.08 X10^3/ul (4.0); Lymphocyte % 23.2 % (19-41); Mean Corpuscular Hgb 30.7 pg (27.0-32.0); Mean Corpuscular Volume 98.9 fL (80-94); Mean Platelet Vol. 9.5 fl (6.2-12.0); Monocyte% 11.1 % (0-10); NRBC Flagged by Analyzer 0 % (0-5); Neutrophil # 5.55 X10^3/uL (2.7-7.7); Neutrophil % 61.9 % (47-70); Platelet Count 182 K/mm3 (150-450); RBC Distribution Width CV 13.6 % (11.6-14.6); RBC Distribution Width SD 50.1 fl (35.1-43.9)
[2020-10-03] MEDS: Levothyroxine 125 MCG Tablet PO (06:39)
[2020-10-03 06:43] LABS: Anion Gap 6 (5-15); BUN 20 mg/dL (7-18); BUN/Creat Ratio 18.3 RATIO (10-20); Calcium,Total 8.8 mg/dL (8.5-10.1); Chloride 103 mmol/L (98-107); Creatinine, Serum 1.09 mg/dL (0.70-1.30); EST Glomerular Filtration Rate 71 mL/min (>60); Est Glom Filt Rate - Afr Amer 87 mL/min (>60); Estimated Creatinine Clearance 69.08 ml/min; Glucose 135 mg/dL (74-106); Potassium 3.7 mmol/L (3.5-5.1); Sodium Level 138 mmol/L (136-145)
[2020-10-03 07:06] LABS: Bedside Glucose 143 mg/dL (70-110)
--- NOTE | 2020-10-03 08:04 | PCM.PROGNOTE ---
Patient Problems: Active and Suspected Problems (Last Updated 10/02/20 @ 10:[address] Echo Contreras MD) Acute pulmonary edema (Acute) Subjective: Chief complaint: Follow-up after admission for acute on chronic CHF with preserved EF, acute pulmonary edema and non-STEMI. Patient seen and examined. No acute events overnight. Shortness of breath continue to improve every day, feeling better. He has been on nasal cannula. Complains of some shoulder discomfort. No chest pain. He is afebrile, blood pressure and heart rate are stable, pulse ox is 93% on 2 L. - Physical Exam Vitals/I&O's: Vital Signs Temp Pulse Resp BP Pulse Ox 98.1 F 63 17 101/55 L 93 10/03/20 05:56 10/03/20 05:56 10/03/20 05:56 10/03/20 05:56 10/03/20 05:56 Oxygen Flow Rate (L/min) 2 Oxygen Delivery Method Nasal Cannula Weight: 263 lb 0.183 oz Body Mass Index (BMI) 37.6 Finger Stick Blood Glucose 176 Intake and Output for Last 24 Hours 10/01/20 10/02/20 10/03/20 23:59 23:59 23:59 Intake Total 1025.78 / 1265.78 360 / 360 Output Total 1000 / 1000 1160 / 1635 750 / 750 Balance -1000 / -986.8 -134.22 / -369.22 -390 / -390 General: Alert, Oriented x3, Cooperative, No apparent distress HEENT: Atraumatic, PERRLA, EOMI, Normocephalic Oral: Moist Mucosa, No Gingival or Mucosal Lesions/ Ulcerations Neck: Supple, No JVD, Negative Carotid Bruits, Trachea Midline, Thyroid Normal Size and Texture Lungs: Clear to auscultation, No rhonchi, No wheeze, No rales, Diminished Cardiovascular: Regular rate, Regular Rhythm, Normal S1, Normal S2, PMI Normal Abdomen: Bowel Sounds Present, Soft, Non Tender, Non-Distended, No Hepato-splenomegaly Extremities: No clubbing, No cyanosis, No edema Skin: No rashes, No breakdown Lymphatic: No Cervical, Supraclavicular, or Inguinal Adenopathy Neurological: Cranial nerves II-XII grossly intact, Neuro grossly intact Psych/Mental Status: Normal Affect, Appropriate, Alert and oriented to time, place, person, mood and affect Laboratory Results 10/02/20 11:49: POC Glucose 134 H 10/02/20 17:29: POC Glucose 141 H 10/02/20 21:36: POC Glucose 150 H 10/03/20 05:46: WBC 9.0, RBC 4.50 L, Hgb 13.8, Hct 44.5, MCV 98.9 H D, MCH 30.7, MCHC 31.0 L, RDW Std Deviation 50.1 H, RDW Coeff of Ritesh 13.6, Plt Count 182, MPV 9.5, Immature Gran % (Auto) 0.700, Neut % (Auto) 61.9, Lymph % (Auto) 23.2, [place] % (Auto) 11.1 H, Eos % (Auto) 2.7, Baso % (Auto) 0.4, Absolute Neuts (auto) 5.6, Absolute Lymphs (auto) 2.08, Nucleated RBC % 0 10/03/20 05:46: Sodium 138, Potassium 3.7, Chloride 103, Carbon Dioxide 29.0, Anion Gap 6, BUN 20 H, Creatinine 1.09, Estim Creat Clear Calc 69.08, Est GFR (MDRD) Af Amer 87, Est GFR (MDRD) Non-Af 71, BUN/Creatinine Ratio 18.3, Glucose 135 H, Calcium 8.8 10/03/20 06:34: POC Glucose 143 H Current Medications Acetaminophen (Acetaminophen 325 Mg Tablet) 650 mg PO Q6H PRN PRN PRN Reason: Pain Score 1-10/Temp > 100.7 F Acetaminophen (Acetaminophen 500 Mg Tablet) 1,000 mg PO BID [facility] Last Admin: 10/02/20 21:39 Dose: 1,000 mg Documented by: Albuterol Sulfate (Albuterol 2.5 Mg/3 Ml Vial.Neb.) 2.5 mg INHALATION Q4H PRN PRN PRN Reason: Shortness of breath, wheezing Aspirin (Aspirin E.C. 81 Mg Tablet) 81 mg PO DAILYCM [facility] Last Admin: 10/02/20 08:07 Dose: 81 mg Documented by: Atorvastatin Calcium (Atorvastatin Calcium 20 Mg Tablet) 20 mg PO QHS [facility] Last Admin: 10/02/20 21:39 Dose: 20 mg Documented by: Calcium/Vitamin D (Calcium Carb/Vitamin D 1 Tablet Tablet) 1 tablet PO DAILYCM [facility] Last Admin: 10/02/20 11:32 Dose: 1 tablet Documented by: Clopidogrel Bisulfate (Clopidogrel Bisulfate 75 Mg Tablet) 75 mg PO DAILY [facility] Last Admin: 10/02/20 08:06 Dose: 75 mg Documented by: Dextrose (Dextrose 50%-Water 25 Gm/50 Ml Disp.Syrin) 0 gm IV X1 PRN; Protocol PRN Reason: Hypoglycemia Enoxaparin Sodium (Enoxaparin 40 Mg/0.4 Ml Syringe) 40 mg SC DAILY [facility] Furosemide (Furosemide 40 Mg/4 Ml Vial) 40 mg IV BID@1000,1800 [facility] Last Admin: 10/02/20 17:34 Dose: 40 mg Documented by: Glucagon (Glucagon 1 Mg/Ml Syringe) 1 mg IM .X1 PRN PRN Reason: Hypoglycemia Guaifenesin (Guaifenesin 10 Ml Udc (200mg/10ml)) 20 ml PO Q4H PRN PRN PRN Reason: COUGH Hydrochlorothiazide (Hydrochlorothiazide 12.5mg) 12.5 mg PO DAILY [facility] Last Admin: 10/02/20 11:33 Dose: 12.5 mg Documented by: Sodium Chloride () 1,000 mls @ 50 mls/hr IV .Q20H [facility] Last Admin: 10/03/20 00:04 Dose: Not Given Documented by: Insulin Human Lispro (Insulin Lispro 100 Unit/Ml Insuln.Pen) 0 unit SC ACHS [facility]; Protocol Last Admin: 10/03/20 06:40 Dose: Not Given Documented by: Levothyroxine Sodium (Levothyroxine 125 Mcg Tablet) 125 mcg PO DAILY@0600 [facility] Last Admin: 10/03/20 06:39 Dose: 125 mcg Documented by: Losartan Potassium (Losartan Potassium 50 Mg Tablet) 50 mg PO DAILY [facility] Last Admin: 10/02/20 08:07 Dose: 50 mg Documented by: Metoprolol Succinate (Metoprolol(Xl)Succ 50 Mg Tablet) 50 mg PO DAILY [facility] Last Admin: 10/02/20 08:07 Dose: 50 mg Documented by: Nitroglycerin (Nitroglycerin Oint 1 Inch Packet) 1 inch TD Q6 [facility] Last Admin: 10/03/20 06:39 Dose: 1 inch Documented by: Ondansetron HCl (Ondansetron 4 Mg/2 Ml Vial) 4 mg IV Q8H PRN PRN PRN Reason: NAUSEA/VOMITING Potassium Chloride (Potassium Chloride Oral Tablet 20 Meq) [facility] Last Admin: 10/02/20 08:06 Dose: 40 meq Documented by: Pyridoxine HCl (Pyridoxine Hcl 100 Mg Tablet) 100 mg PO DAILY [facility] Last Admin: 10/02/20 11:32 Dose: 100 mg Documented by: Sodium Chloride (0.9% Saline Lock 10 Ml Syringe) 10 - 40 ml IV UD PRN PRN Reason: SALINE FLUSH Tramadol HCl (Tramadol 50 Mg Tablet) 50 mg PO Q6H PRN PRN PRN Reason: PAIN -05/23 Medical Necessity - Tobacco Use Smoking Status: Former smoker Tobacco Use: Non-smoker Assessment/Plan All Active Problems (Last Updated 10/02/20 @ 10:[address] Echo Contreras MD) Acute [id number] myocardial infarction (Acute) Acute respiratory failure with hypoxia (Acute) Acute pulmonary edema (Acute) This is a 70 years old male patient presented to the emergency room because of sudden onset shortness of breath and he was found to have acute on chronic diastolic CHF/acute pulmonary edema complicated by acute hypoxic respiratory failure and he was found to have acute non-ST elevation [place]. #1 acute on chronic CHF with preserved ejection fraction/acute pulmonary edema: He is on IV Lasix. Respiratory status significantly improved, has been off BiPAP and currently on oxygen by nasal cannula. EKG revealed normal sinus rhythm, inverted T waves in leads III, V3, V4, V5 and V6, no acute ST elevation. Troponin is elevated, highest was 3.83, it is trending down. 2D echocardiogram revealed ejection fraction of 65%, other findings reviewed. Patient underwent cardiac catheterization as below. Cardiology on the case. Findings are below. Repeat CBC and BMP from today was unremarkable. Plan to continue IV diuresis, repeat BMP tomorrow morning, wean off oxygen as tolerated. #2 acute hypoxic respiratory failure: Secondary to #1. He had a history of sleep apnea as well and has been on CPAP at night. Currently, he is on oxygen at 2 L, pulse ox is 90%. He supposed to be on CPAP at night but he could not use it last night because settings were high. Plan to continue IV diuresis, wean off oxygen as tolerated as above. #3 acute non-ST ovation [place]: EKG reviewed as above. Troponin is elevated as mentioned above. Status post cardiac catheterization That showed multivessel disease, findings reviewed. Cardiology recommended CT surgery consultation for CABG and valvular heart disease which I am not sure if should happen now or in the near future. Cardiac cath report is pending. He is on aspirin, statins, Plavix, losartan and metoprolol. Plan to continue same treatment. #4 CAD status post angioplasty: Without prior history of stents or bypass surgery. continue current treatment as above. #5 hypertension: Blood pressure stable, continue losartan and metoprolol. #6 hypothyroidism: Stable, continue levothyroxine. #7 obstructive sleep apnea: Stable, continue CPAP at night when he comes off BiPAP. #8 mild aortic stenosis/bicuspid aortic valve: 2D echocardiogram reviewed as above. Plan for CT surgery evaluation for CABG and valve replacement as above. #9 suspected COPD: Currently, on oxygen by nasal cannula. Continue albuterol nebulizer as needed. #10 DVT prophylaxis: Start subcu Lovenox. This note was generated with [employer] medical dictation software. It may contain incorrect words, spelling, and punctuation that were not noted in checking the note before signing. Inpatient E&M: 33200 Subs Hosp L2
[2020-10-03] MEDS: Potassium Chloride Oral Tablet 20 MEQ 40 MEQ PO (10:06)
[2020-10-03] MEDS: Aspirin E.C. 81 MG Tablet PO (10:06)
[2020-10-03] MEDS: hydroCHLOROthiazide 12.5mg 12.5 MG PO (10:07)
[2020-10-03] MEDS: Calcium Carb/Vitamin D 1 TABLET Tablet PO (10:07)
[2020-10-03] MEDS: Losartan Potassium 50 MG Tablet PO (10:07)
[2020-10-03] MEDS: Metoprolol(XL)Succ 50 MG Tablet PO (10:07)
[2020-10-03] MEDS: Acetaminophen 500 MG Tablet 1000 MG PO ×2 (10:07→21:35)
[2020-10-03] MEDS: Pyridoxine HCl 100 MG Tablet PO (10:07)
[2020-10-03] MEDS: Clopidogrel Bisulfate 75 MG Tablet PO (10:07)
[2020-10-03] MEDS: 0.9% Saline Lock 10 ML Syringe IV ×2 (10:10→17:38)
[2020-10-03] MEDS: Furosemide 40 MG/4 ML Vial IV ×2 (10:14→17:38)
[2020-10-03] MEDS: Enoxaparin 40 MG/0.4 ML Syringe SC (10:14)
[2020-10-03 12:15] LABS: Bedside Glucose 131 mg/dL (70-110)
--- NOTE | 2020-10-03 14:04 | PCM.PN.CARD ---
Objective: Vital Signs Temp Pulse Resp BP Pulse Ox 98.3 F 86 18 138/71 H 94 10/03/20 08:00 10/03/20 11:00 10/03/20 08:00 10/03/20 10:07 10/03/20 10:00 Oxygen Flow Rate (L/min) 2 Oxygen Delivery Method Nasal Cannula Weight: 263 lb 0.183 oz Body Mass Index (BMI) 37.6 Finger Stick Blood Glucose 176 Intake and Output for Last 24 Hours 10/01/20 10/02/20 10/03/20 23:59 23:59 23:59 Intake Total 1025.78 / 1265.78 940 / 940 Output Total 1000 / 1000 1160 / 1635 1550 / 1550 Balance -1000 / -986.8 -134.22 / -369.22 -610 / -610 General: Awake, Alert, Oriented x 3 Cardiovascular: Normal S1 10/03/20 05:46: WBC 9.0, RBC 4.50 L, Hgb 13.8, Hct 44.5, MCV 98.9 H D, MCH 30.7, MCHC 31.0 L, Plt Count 182, MPV 9.5, Immature Gran % (Auto) 0.700, Neut % (Auto) 61.9, Lymph % (Auto) 23.2, [place] % (Auto) 11.1 H, Eos % (Auto) 2.7, Baso % (Auto) 0.4, Absolute Neuts (auto) 5.6, Nucleated RBC % 0 10/03/20 05:46: Sodium 138, Potassium 3.7, Chloride 103, Carbon Dioxide 29.0, Anion Gap 6, BUN 20 H, Creatinine 1.09, Est GFR (MDRD) Af Amer 87, Est GFR (MDRD) Non-Af 71, BUN/Creatinine Ratio 18.3, Glucose 135 H, Calcium 8.8 Rhythm: Normal sinus, frequent PVC, episodes of nonsustained ventricular tachycardia EKG: Underlying normal sinus rhythm. Medical Necessity - Tobacco Use Smoking Status: Former smoker Tobacco Use: Non-smoker Assessment/Plan 70-year-old patient, with history of multivessel CAD Recently presented here to hospital with progressive symptoms of shortness of breath on exertion And evaluated with a series of cardiac biomarkers which showed elevated high sensitive troponin with a clinical diagnosis of non-ST elevation [place]. Today he is feeling better he does not have any symptoms of chest pain shortness of breath is improving gradually on the current treatment Cardiac catheterization by his primary staffing director Dr. Cole revealed multivessel CAD On review of the telemetry had episodes of nonsustained ventricular tachycardia with frequent premature ventricular complexes and underlying normal sinus rhythm There is no active symptoms of chest pain Bedside examination cardiac exam essentially S1-S2 regular Assessment and plan; 1. Patient will be evaluated further with a transesophageal echocardiogram for evaluation of the aortic valve/bicuspid aortic valve by 2. To discuss of referral to cardiovascular surgeons in regard to his multivessel CAD and based on the results of the aortic valve assessment. 3. He will be seen and followed by his primary staffing director Dr. Cole as an outpatient. 4. I discussed I reviewed his current medication and plan of cardiac care in detail with the patient family at bedside and the nursing staff
[2020-10-03 16:45] LABS: Bedside Glucose 134 mg/dL (70-110)
[2020-10-03] MEDS: Atorvastatin Calcium 20 MG Tablet PO (21:35)
[2020-10-03 22:25] LABS: Bedside Glucose 123 mg/dL (70-110)
[2020-10-04] VITALS (12 sets, daily range): BP systolic 105–120; BP diastolic 49–70; PULSE 62–80; RESP 15–22; TEMP 36.5–36.8; O2SAT 90–97
[2020-10-04] MEDS: Nitroglycerin Oint 1 INCH PACKET TD ×3 (00:09→12:20)
[2020-10-04] MEDS: 0.9% Saline Lock 10 ML Syringe IV ×2 (00:09→09:32)
[2020-10-04] MEDS: Levothyroxine 125 MCG Tablet PO (05:32)
[2020-10-04] MEDS: traMADol 50 MG Tablet PO (05:36)
[2020-10-04 06:55] LABS: Bedside Glucose 147 mg/dL (70-110)
[2020-10-04 07:15] LABS: Anion Gap 6 (5-15); BUN 25 mg/dL (7-18); BUN/Creat Ratio 25.4 RATIO (10-20); Calcium,Total 8.8 mg/dL (8.5-10.1); Chloride 103 mmol/L (98-107); Creatinine, Serum 0.98 mg/dL (0.70-1.30); EST Glomerular Filtration Rate 80 mL/min (>60); Est Glom Filt Rate - Afr Amer 97 mL/min (>60); Estimated Creatinine Clearance 76.84 ml/min; Glucose 136 mg/dL (74-106); Sodium Level 134 mmol/L (136-145)
--- NOTE | 2020-10-04 08:13 | PCM.PROGNOTE ---
Patient Problems: Active and Suspected Problems (Last Updated 10/02/20 @ 10:[address] Echo Contreras MD) Acute pulmonary edema (Acute) Subjective: Chief complaint: Follow-up after admission for acute on chronic CHF with preserved EF, acute pulmonary edema and non-STEMI. Patient seen and examined. No acute events overnight. Today, he is feeling much better than yesterday. He tolerated CPAP at night. Shortness of breath has been improving every day. No other complaints. He was taken off oxygen this morning and currently on room air, plan to check his pulse ox shortly. Other vital signs are stable. - Physical Exam Vitals/I&O's: Vital Signs Temp Pulse Resp BP Pulse Ox 97.7 F L 68 15 120/55 L 90 10/04/20 03:55 10/04/20 07:00 10/04/20 03:55 10/04/20 05:32 10/04/20 07:50 Oxygen Flow Rate (L/min) 2 Oxygen Delivery Method Nasal Cannula Weight: 261 lb 0.437 oz Body Mass Index (BMI) 37.6 Finger Stick Blood Glucose 176 Intake and Output for Last 24 Hours 10/02/20 10/03/20 10/04/20 23:59 23:59 23:59 Intake Total 1025.78 / 1265.78 1180 / 1540 420 / 420 Output Total 1160 / 1635 2100 / 2925 1075 / 1075 Balance -134.22 / -369.22 -920 / -1385 -655 / -655 General: Alert, Oriented x3, Cooperative, No apparent distress HEENT: Atraumatic, PERRLA, EOMI, Normocephalic Oral: Moist Mucosa, No Gingival or Mucosal Lesions/ Ulcerations Neck: Supple, No JVD, Negative Carotid Bruits, Trachea Midline, Thyroid Normal Size and Texture Lungs: Clear to auscultation, No rhonchi, No wheeze, No rales, Diminished Cardiovascular: Regular rate, Regular Rhythm, Normal S1, Normal S2, PMI Normal Abdomen: Bowel Sounds Present, Soft, Non Tender, Non-Distended, No Hepato-splenomegaly Extremities: No clubbing, No cyanosis, No edema Skin: No rashes, No breakdown Lymphatic: No Cervical, Supraclavicular, or Inguinal Adenopathy Neurological: Cranial nerves II-XII grossly intact, Neuro grossly intact Psych/Mental Status: Normal Affect, Appropriate, Alert and oriented to time, place, person, mood and affect Laboratory Results 10/03/20 11:56: POC Glucose 131 H 10/03/20 16:20: POC Glucose 134 H 10/03/20 21:34: POC Glucose 123 H 10/04/20 06:02: Sodium 134 L, Potassium 4.0, Chloride 103, Carbon Dioxide 25.0, Anion Gap 6, BUN 25 H, Creatinine 0.98, Estim Creat Clear Calc 76.84, Est GFR (MDRD) Af Amer 97, Est GFR (MDRD) Non-Af 80, BUN/Creatinine Ratio 25.4 H, Glucose 136 H, Calcium 8.8 10/04/20 06:46: POC Glucose 147 H Current Medications Acetaminophen (Acetaminophen 325 Mg Tablet) 650 mg PO Q6H PRN PRN PRN Reason: Pain Score 1-10/Temp > 100.7 F Acetaminophen (Acetaminophen 500 Mg Tablet) 1,000 mg PO BID [facility] Last Admin: 10/03/20 21:35 Dose: 1,000 mg Documented by: Albuterol Sulfate (Albuterol 2.5 Mg/3 Ml Vial.Neb.) 2.5 mg INHALATION Q4H PRN PRN PRN Reason: Shortness of breath, wheezing Aspirin (Aspirin E.C. 81 Mg Tablet) [facility] Last Admin: 10/03/20 10:06 Dose: 81 mg Documented by: Atorvastatin Calcium (Atorvastatin Calcium 20 Mg Tablet) 20 mg PO QHS [facility] Last Admin: 10/03/20 21:35 Dose: 20 mg Documented by: Calcium/Vitamin D (Calcium Carb/Vitamin D 1 Tablet Tablet) [facility] Last Admin: 10/03/20 10:07 Dose: 1 tablet Documented by: Clopidogrel Bisulfate (Clopidogrel Bisulfate 75 Mg Tablet) 75 mg PO DAILY [facility] Last Admin: 10/03/20 10:07 Dose: 75 mg Documented by: Dextrose (Dextrose 50%-Water 25 Gm/50 Ml Disp.Syrin) 0 gm IV X1 PRN; Protocol PRN Reason: Hypoglycemia Enoxaparin Sodium (Enoxaparin 40 Mg/0.4 Ml Syringe) 40 mg SC DAILY [facility] Last Admin: 10/03/20 10:14 Dose: 40 mg Documented by: Furosemide (Furosemide 40 Mg/4 Ml Vial) 40 mg IV BID@1000,1800 [facility] Last Admin: 10/03/20 17:38 Dose: 40 mg Documented by: Glucagon (Glucagon 1 Mg/Ml Syringe) 1 mg IM .X1 PRN PRN Reason: Hypoglycemia Guaifenesin (Guaifenesin 10 Ml Udc (200mg/10ml)) 20 ml PO Q4H PRN PRN PRN Reason: COUGH Hydrochlorothiazide (Hydrochlorothiazide 12.5mg) 12.5 mg PO DAILY [facility] Last Admin: 10/03/20 10:07 Dose: 12.5 mg Documented by: Insulin Human Lispro (Insulin Lispro 100 Unit/Ml Insuln.Pen) 0 unit SC [facility]; Protocol Last Admin: 10/04/20 06:48 Dose: Not Given Documented by: Levothyroxine Sodium (Levothyroxine 125 Mcg Tablet) 125 mcg PO DAILY@0600 [facility] Last Admin: 10/04/20 05:32 Dose: 125 mcg Documented by: Losartan Potassium (Losartan Potassium 50 Mg Tablet) 50 mg PO DAILY [facility] Last Admin: 10/03/20 10:07 Dose: 50 mg Documented by: Metoprolol Succinate (Metoprolol(Xl)Succ 50 Mg Tablet) 50 mg PO DAILY [facility] Last Admin: 10/03/20 10:07 Dose: 50 mg Documented by: Nitroglycerin (Nitroglycerin Oint 1 Inch Packet) 1 inch TD Q6 [facility] Last Admin: 10/04/20 05:32 Dose: 1 inch Documented by: Ondansetron HCl (Ondansetron 4 Mg/2 Ml Vial) 4 mg IV Q8H PRN PRN PRN Reason: NAUSEA/VOMITING Potassium Chloride (Potassium Chloride Oral Tablet 20 Meq) [facility] Last Admin: 10/03/20 10:06 Dose: 40 meq Documented by: Pyridoxine HCl (Pyridoxine Hcl 100 Mg Tablet) 100 mg PO DAILY [facility] Last Admin: 10/03/20 10:07 Dose: 100 mg Documented by: Sodium Chloride (0.9% Saline Lock 10 Ml Syringe) 10 - 40 ml IV UD PRN PRN Reason: SALINE FLUSH Last Admin: 10/04/20 00:09 Dose: 20 ml Documented by: Tramadol HCl (Tramadol 50 Mg Tablet) 50 mg PO Q6H PRN PRN PRN Reason: PAIN 1-05/23 Last Admin: 10/04/20 05:36 Dose: 50 mg Documented by: Medical Necessity - Tobacco Use Smoking Status: Former smoker Tobacco Use: Non-smoker Assessment/Plan All Active Problems (Last Updated 10/02/20 @ 10:[address] Echo Contreras MD) Acute [id number] myocardial infarction (Acute) Acute respiratory failure with hypoxia (Acute) Acute pulmonary edema (Acute) This is a 70 years old male patient presented to the emergency room because of sudden onset shortness of breath and he was found to have acute on chronic diastolic CHF/acute pulmonary edema complicated by acute hypoxic respiratory failure and he was found to have acute non-ST elevation [place]. #1 acute on chronic CHF with preserved ejection fraction/acute pulmonary edema: He is on IV Lasix. Respiratory status significantly improved, has been off BiPAP and currently on oxygen by nasal cannula. EKG revealed normal sinus rhythm, inverted T waves in leads III, V3, V4, V5 and V6, no acute ST elevation. Troponin is elevated, highest was 3.83, it is trending down. 2D echocardiogram revealed ejection fraction of 65%, other findings reviewed. Patient underwent cardiac catheterization as below. Cardiology on the case. Findings are below. Repeat CBC and BMP from today was unremarkable. Plan to continue IV diuresis, repeat BMP tomorrow morning, wean off oxygen as tolerated. #2 acute hypoxic respiratory failure: Secondary to #1. He had a history of sleep apnea as well and has been on CPAP at night. Currently, he is on oxygen at 2 L, pulse ox is 90%. He supposed to be on CPAP at night but he could not use it last night because settings were high. Plan to continue IV diuresis, wean off oxygen as tolerated as above. #3 acute non-ST ovation [place]: EKG reviewed as above. Troponin is elevated as mentioned above. Status post cardiac catheterization That showed multivessel disease, findings reviewed. Cardiology recommended CT surgery consultation for CABG and valvular heart disease which I am not sure if should happen now or in the near future. Cardiac cath report is pending. He is on aspirin, statins, Plavix, losartan and metoprolol. Plan to continue same treatment. #4 CAD status post angioplasty: Without prior history of stents or bypass surgery. continue current treatment as above. #5 hypertension: Blood pressure stable, continue losartan and metoprolol. #6 hypothyroidism: Stable, continue levothyroxine. #7 obstructive sleep apnea: Stable, continue CPAP at night when he comes off BiPAP. #8 mild aortic stenosis/bicuspid aortic valve: 2D echocardiogram reviewed as above. Plan for CT surgery evaluation for CABG and valve replacement as above. #9 suspected COPD: Currently, on oxygen by nasal cannula. Continue albuterol nebulizer as needed. #10 DVT prophylaxis: Start subcu Lovenox. This note was generated with [employer] dictation software. It may contain incorrect words, spelling, and punctuation that were not noted in checking the note before signing.
[2020-10-04] MEDS: Pyridoxine HCl 100 MG Tablet PO (09:25)
[2020-10-04] MEDS: Clopidogrel Bisulfate 75 MG Tablet PO (09:25)
[2020-10-04] MEDS: Acetaminophen 500 MG Tablet 1000 MG PO (09:26)
[2020-10-04] MEDS: Losartan Potassium 50 MG Tablet PO (09:26)
[2020-10-04] MEDS: hydroCHLOROthiazide 12.5mg 12.5 MG PO (09:26)
[2020-10-04] MEDS: Potassium Chloride Oral Tablet 20 MEQ 40 MEQ PO (09:26)
[2020-10-04] MEDS: Calcium Carb/Vitamin D 1 TABLET Tablet PO (09:26)
[2020-10-04] MEDS: Aspirin E.C. 81 MG Tablet PO (09:27)
[2020-10-04] MEDS: Metoprolol(XL)Succ 50 MG Tablet PO (09:28)
[2020-10-04] MEDS: Furosemide 40 MG/4 ML Vial IV (09:35)
[2020-10-04] MEDS: Enoxaparin 40 MG/0.4 ML Syringe SC (09:35)
--- NOTE | 2020-10-04 10:07 | PN.CARD_ITS ---
Objective: Vital Signs Temp Pulse Resp BP Pulse Ox 98.2 F 80 18 118/70 92 10/04/20 09:20 10/04/20 09:28 10/04/20 09:20 10/04/20 09:28 10/04/20 09:20 Oxygen Flow Rate (L/min) 2 Oxygen Delivery Method Room Air Weight: 261 lb 0.437 oz Body Mass Index (BMI) 37.6 Finger Stick Blood Glucose 176 Intake and Output for Last 24 Hours 10/02/20 10/03/20 10/04/20 23:59 23:59 23:59 Intake Total 1025.78 / 1265.78 1180 / 1540 420 / 420 Output Total 1160 / 1635 2100 / 2925 1075 / 1075 Balance -134.22 / -369.22 -920 / -1385 -655 / -655 General: Awake, Alert, Oriented x 3 HEENT: PERRL, EOMI, Sclera Non Icteric Neck: Supple, Good ROM, No Lymph Node Enlargement Lungs: Clear to auscultation Cardiovascular: Regular Rhythm, Normal S1, Normal S2, No Murmurs, No Rubs, No Gallops Abdomen: Bowel Sounds Present, Soft, Non Tender, No HSM, No Organomegaly Extremities: No Cyanosis, No Clubbing, No edema Psych/Mental Status: Appropriate 10/04/20 06:02: Sodium 134 L, Potassium 4.0, Chloride 103, Carbon Dioxide 25.0, Anion Gap 6, BUN 25 H, Creatinine 0.98, Est GFR (MDRD) Af Amer 97, Est GFR (MDRD) Non-Af 80, BUN/Creatinine Ratio 25.4 H, Glucose 136 H, Calcium 8.8 Rhythm: Sinus rhythm with frequent PVC and ventricular trigeminy, episodes of nonsustained ventricular tachycardia. EKG: Underlying normal sinus rhythm ECHO: Patient has history of of bicuspid arctic valve Await for further assessment by transesophageal echocardiogram Cardiac Cath: 3 vessel CAD Medical Necessity - Tobacco Use Smoking Status: Former smoker Tobacco Use: Non-smoker Assessment/Plan 70-year-old patient, admitted with symptoms of progressive shortness of breath on exertion Seen today at bedside feeling better On review of the telemetry underlying rhythm is sinus rhythm and has a episodes of ventricular trigeminy and nonsustained ventricular tachycardia This patient clinical diagnosis CAD, non-ST elevation VA, multivessel CAD involving LAD, circumflex and RCA Also had a history of bicuspid aortic valve Cardiac care plan and decision was to evaluate further with a transesophageal echocardiogram And to discuss referral to CVS/cardiovascular surgeon to assess for CABG and to decide on aortic valve based on the finding of the BENNETT. I discussed in detail the need for BENNETT with the patient and also will discuss with the property man Dr. Baca. Patient property man is Dr. Cole who will follow up with the patient as an outpatient. Current medication and cardiac care plan discussed in detail with the patient and with the nursing staff.
[2020-10-04] MEDS: Insulin Lispro 100 UNIT/ML INSULN.PEN SC (12:19)
[2020-10-04 12:41] LABS: Bedside Glucose 219 mg/dL (70-110)
--- NOTE | 2020-10-04 13:40 | DCINST_ITS ---
- Discharge Diagnoses Current Active Problems: Current Active and Chronic Problems (Last Updated 10/02/20 @ 10:[address] Echo Contreras MD) Acute pulmonary edema (Acute) IVA on CPAP (Chronic) Pure hypercholesterolemia (Chronic) Hypothyroidism (Chronic) intermediate use of drug (Chronic) Antihyperlipidemic Abnormal stress test (Chronic) H/O percutaneous transluminal coronary angioplasty (Chronic) R&L heart cath 10/06/15, PCI-PTCA-CX and FFR-RCA 10/22/15 Atherosclerotic heart disease of [place] coronary artery without angina pectoris (Chronic) S/P angioplasty without stenting to mid LCx and proximal LCx in October 2015; Aortic valve, bicuspid (Chronic) Essential (primary) hypertension (Chronic) You will use the following diet at home:: Cardiac Your food should be the consistency of: Regular Discharge Activity: Return to Normal Activity Weight Bearing Status: Weight bearing as tolerated Call your doctor if you observe: Fever of 101 or Higher, Shortness of breath, Dizziness, Fainting spells, Swelling in the ankles, Chest pain, Increased palpitations (irregular heartbeat), Uncontrolled pain Allergies/Adverse Reactions: Allergies No Known Allergies Allergy (Verified 10/01/20 23:25) Medications to take at Discharge aspirin 81 mg tablet,delayed release 81 mg PO QDAY 12/05/17 atorvastatin 20 mg tablet 20 mg PO QDAY 12/05/17 clopidogrel 75 mg tablet 75 mg PO QDAY 12/05/17 hydrochlorothiazide 12.5 mg capsule 12.5 mg PO QDAY 12/05/17 tramadol 50 mg tablet 50 mg PO Q6H PRN 06/06/18 calcium carbonate-vitamin D3 600 mg (1,500 mg)-400 unit capsule 1 cap PO BID cap 12/17/18 magnesium oxide 500 mg capsule 500 mg PO DAILY cap 12/17/18 pyridoxine (vitamin B6) 100 mg tablet 100 mg PO DAILY 06/19/19 metoprolol succinate 50 mg tablet,extended release 24 hr 50 mg PO DAILY 04/27/20 turmeric root extract 500 mg capsule 500 mg PO BID cap 04/27/20 Acetaminophen [Tylenol] 1,000 mg PO BID 10/01/20 Levothyroxine Sodium [Levoxyl] 125 mcg PO DAILY 10/01/20 Losartan Potassium 50 mg PO DAILY 02/18/21 Pioglitazone [Actos] 30 mg PO DAILY 10/01/20 Potassium Chloride 10 meq PO DAILY 10/01/20 Furosemide [Lasix] 40 mg PO DAILY #30 tab 10/04/20 The following prescriptions were given: Furosemide [Lasix] 40 mg PO DAILY #30 tab Transmission Status: Pending to [id number] Primary Care Physician: Eugenio Arias [Primary Care Provider] - Please follow up with your Primary Care Physician in: 1 week. Test Results: Test results from this visit will be discussed in further detail at your follow- up appointment, if applicable. Please Follow Up With: Branden Cole MD When: 2-3 days, please call his office if they did not call you on Monday.
--- NOTE | 2020-10-04 13:42 | DS.PCM_ITS ---
Discharge Date and Diagnosis - Problem List Patient Problems: Active and Suspected Problems (Last Updated 10/02/20 @ 10:[address] Echo Contreras MD) Acute pulmonary edema (Acute) Date of Admission: 10/01/20 Date of Discharge: 10/04/20 - Primary Discharge Diagnosis Acute Problems: Active Problems (Last Updated 10/02/20 @ 10:[address] Echo Contreras MD) #1 acute on chronic CHF with preserved ejection fraction/acute pulmonary edema. #2 acute hypoxic respiratory failure. #3 acute non-ST elevation MA. #4 bicuspid aortic valve. #5 multivessel CAD. - Secondary Discharge Diagnosis Chronic Problems: Chronic Problems (Last Updated 10/02/20 @ 10:[address] Echo Contreras MD) IVA on CPAP (Chronic) Pure hypercholesterolemia (Chronic) Hypothyroidism (Chronic) buttermaker helper use of drug (Chronic) Antihyperlipidemic Abnormal stress test (Chronic) H/O percutaneous transluminal coronary angioplasty (Chronic) R&L heart cath 10/06/15, PCI-PTCA-CX and FFR-RCA 10/22/15 Atherosclerotic heart disease of [place] coronary artery without angina pectoris (Chronic) S/P angioplasty without stenting to mid LCx and proximal LCx in October 2015; Aortic valve, bicuspid (Chronic) Essential (primary) hypertension (Chronic) Hospital Course and Treatment Imaging Results: Clinical Impression(s) from Imaging Studies Chest X-Ray 10/01/20 20:28 IMPRESSION: Findings consistent with COPD and probable superimposed mild pulmonary interstitial edema. Clinical correlation recommended Electronically Signed: Chung eJtt MD at 20:46 EST , Service support , Dr. Cole, cardiology. Procedures: 2-D Echocardiogram, Cardiac catheterization, EKG Summary of Care Provided: Patient seen and examined on the day of discharge and appeared to be stable to be discharged home. He has been off BiPAP. He tolerated CPAP at night which he has been using at home. He was taken off oxygen this morning and pulse ox remained around 92% on room air. Other vital signs are stable. This is a 70 years old male patient presented to the emergency room because of sudden onset shortness of breath and he was found to have acute on chronic diastolic CHF/acute pulmonary edema complicated by acute hypoxic respiratory failure and he was found to have acute non-ST elevation MA. #1 acute on chronic CHF with preserved ejection fraction/acute pulmonary edema: Treated with IV Lasix for diuresis, losartan and metoprolol as well as BiPAP. EKG revealed normal sinus rhythm, inverted T waves in leads III, V3, V4, V5 and V6, no acute ST elevation. Troponin is elevated, highest was 3.83 2D echocardiogram revealed ejection fraction of 65%, other findings reviewed. Patient underwent cardiac catheterization as below. With IV diuresis, able to state off BiPAP, weaned down to nasal cannula which was also discontinued and he maintain pulse ox on room air at 92%. Patient discharged home Lasix 40 mg p.o. daily. #2 acute hypoxic respiratory failure: Secondary to #1. Initially, he was treated with BiPAP as above, wean down to nasal cannula and eventually, he was taken off oxygen and pulse ox remained around 92% on room air. Patient has been using CPAP at night for sleep apnea which was continued upon discharge. #3 acute non-ST ovation MA: EKG reviewed as above. Troponin is elevated as mentioned above. Status post cardiac catheterization That showed multivessel disease, findings reviewed. Cardiology recommended CT surgery consultation for CABG and valvular heart disease which will be done as outpatient. Patient discharged on aspirin, Plavix, statins, losartan and metoprolol. #4 CAD status post angioplasty: Without prior history of stents or bypass surgery. Plan as above. #5 hypertension: Blood pressure stable, continued on losartan and metoprolol. #6 hypothyroidism: Stable, continued on levothyroxine. #7 obstructive sleep apnea: Stable, continued CPAP at night with the same previous home settings. #8 mild aortic stenosis/bicuspid aortic valve: 2D echocardiogram reviewed as ab bustamante. Plan for BENNETT as outpatient this week. Patient discharged home in a stable medical condition, discharged on Lasix 40 mg p.o. daily, continued on his previous home medications including aspirin, Plavix, statins, losartan and metoprolol, plan for BENNETT as outpatient this week and also for CT surgery evaluation for CABG and valve replacement in the near future according to cardiac recommendations. Plan to follow-up with [facility], we, recommended follow-up with PCP in 1 week. This note was generated with [employer] software. It may contain incorrect words, spelling, and punctuation that were not noted in checking the note before signing. Patient Problems: Active and Suspected Problems (Last Updated 10/02/20 @ 10:[address] Echo Contreras MD) Acute pulmonary edema (Acute) - Physical Exam Vitals/I&O's: Vital Signs Temp Pulse Resp BP Pulse Ox 98.2 F 67 18 116/65 92 10/04/20 09:20 10/04/20 12:20 10/04/20 09:20 10/04/20 12:20 10/04/20 09:20 Oxygen Flow Rate (L/min) 2 Oxygen Delivery Method Room Air Weight: 261 lb 0.437 oz Body Mass Index (BMI) 37.6 Finger Stick Blood Glucose 176 Intake and Output for Last 24 Hours 10/02/20 10/03/20 10/04/20 23:59 23:59 23:59 Intake Total 1025.78 / 1265.78 1180 / 1540 660 / 660 Output Total 1160 / 1635 2100 / 2925 1775 / 1775 Balance -134.22 / -369.22 -920 / -1385 -1115 / -1115 General: Alert, Oriented x3, Cooperative, No apparent distress HEENT: Atraumatic, PERRLA, EOMI, Normocephalic Oral: Moist Mucosa, No Gingival or Mucosal Lesions/ Ulcerations Neck: Supple, No JVD, Negative Carotid Bruits, Trachea Midline, Thyroid Normal Size and Texture Lungs: Clear to auscultation, No rhonchi, No wheeze, No rales, Diminished Cardiovascular: Regular rate, Regular Rhythm, Normal S1, Normal S2, PMI Normal Abdomen: Bowel Sounds Present, Soft, Non Tender, Non-Distended, No Hepato-splenomegaly Extremities: No clubbing, No cyanosis, No edema Skin: No rashes, No breakdown Lymphatic: No Cervical, Supraclavicular, or Inguinal Adenopathy Neurological: Cranial nerves II-XII grossly intact, Neuro grossly intact Psych/Mental Status: Normal Affect, Appropriate Laboratory Results 10/03/20 16:20: POC Glucose 134 H 10/03/20 21:34: POC Glucose 123 H 10/04/20 06:02: Sodium 134 L, Potassium 4.0, Chloride 103, Carbon Dioxide 25.0, Anion Gap 6, BUN 25 H, Creatinine 0.98, Estim Creat Clear Calc 76.84, Est GFR (MDRD) Af Amer 97, Est GFR (MDRD) Non-Af 80, BUN/Creatinine Ratio 25.4 H, Glucose 136 H, Calcium 8.8 10/04/20 06:46: POC Glucose 147 H 10/04/20 12:14: POC Glucose 219 H Current Medications Acetaminophen (Acetaminophen 325 Mg Tablet) 650 mg PO Q6H PRN PRN PRN Reason: Pain Score 1-10/Temp > 100.7 F Acetaminophen (Acetaminophen 500 Mg Tablet) 1,000 mg PO BID [facility] Last Admin: 10/04/20 09:26 Dose: 1,000 mg Documented by: Albuterol Sulfate (Albuterol 2.5 Mg/3 Ml Vial.Neb.) 2.5 mg INHALATION Q4H PRN PRN PRN Reason: Shortness of breath, wheezing Aspirin (A[facility]in E.C. 81 Mg Tablet) [facility] Admin: 10/04/20 09:27 Dose: 81 mg Documented by: Atorvastatin Calcium (Atorvastatin Calcium 20 Mg Tablet) 20 mg PO QHS [facility] Last Admin: 10/03/20 21:35 Dose: 20 mg Documented by: Calcium/Vitamin D (Calcium Carb/Vitamin D 1 Tablet Tablet) [facility] Last Admin: 10/04/20 09:26 Dose: 1 tablet Documented by: Clopidogrel Bisulfate (Clopidogrel Bisulfate 75 Mg Tablet) 75 mg PO DAILY [facility] Last Admin: 10/04/20 09:25 Dose: 75 mg Documented by: Dextrose (Dextrose 50%-Water 25 Gm/50 Ml Disp.Syrin) 0 gm IV X1 PRN; Protocol PRN Reason: Hypoglycemia Enoxaparin Sodium (Enoxaparin 40 Mg/0.4 Ml Syringe) 40 mg SC DAILY [facility] Last Admin: 10/04/20 09:35 Dose: 40 mg Documented by: Furosemide (Furosemide 40 Mg/4 Ml Vial) 40 mg IV BID@1000,1800 [facility] Last Admin: 10/04/20 09:35 Dose: 40 mg Documented by: Glucagon (Glucagon 1 Mg/Ml Syringe) 1 mg IM .X1 PRN PRN Reason: Hypoglycemia Guaifenesin (Guaifenesin 10 Ml Udc (200mg/10ml)) 20 ml PO Q4H PRN PRN PRN Reason: COUGH Hydrochlorothiazide (Hydrochlorothiazide 12.5mg) 12.5 mg PO DAILY [facility] Last Admin: 10/04/20 09:26 Dose: 12.5 mg Documented by: Insulin Human Lispro (Insulin Lispro 100 Unit/Ml Insuln.Pen) 0 unit SC [facility]; Protocol Last Admin: 10/04/20 12:19 Dose: 4 units Documented by: Levothyroxine Sodium (Levothyroxine 125 Mcg Tablet) 125 mcg PO DAILY@0600 [facility] Last Admin: 10/04/20 05:32 Dose: 125 mcg Documented by: Losartan Potassium (Losartan Potassium 50 Mg Tablet) 50 mg PO DAILY [facility] Last Admin: 10/04/20 09:26 Dose: 50 mg Documented by: Metoprolol Succinate (Metoprolol(Xl)Succ 50 Mg Tablet) 50 mg PO DAILY [facility] Last Admin: 10/04/20 09:28 Dose: 50 mg Documented by: Nitroglycerin (Nitroglycerin Oint 1 Inch Packet) 1 inch TD Q6 [facility] Last Admin: 10/04/20 12:20 Dose: 1 inch Documented by: Ondansetron HCl (Ondansetron 4 Mg/2 Ml Vial) 4 mg IV Q8H PRN PRN PRN Reason: NAUSEA/VOMITING Potassium Chloride (Potassium Chloride Oral Tablet 20 Meq) [facility] Last Admin: 10/04/20 09:26 Dose: 40 meq Documented by: Pyridoxine HCl (Pyridoxine Hcl 100 Mg Tablet) 100 mg PO DAILY [facility] Last Admin: 10/04/20 09:25 Dose: 100 mg Documented by: Sodium Chloride (0.9% Saline Lock 10 Ml Syringe) 10 - 40 ml IV UD PRN PRN Reason: SALINE FLUSH Last Admin: 10/04/20 09:32 Dose: 10 ml Documented by: Tramadol HCl (Tramadol 50 Mg Tablet) 50 mg PO Q6H PRN PRN PRN Reason: PAIN -05/23 Last Admin: 10/04/20 05:36 Dose: 50 mg Documented by: Discharge Activity: Return to Normal Activity Weight Bearing Status: Weight bearing as tolerated Call your doctor if you observe: Fever of 101 or Higher, Shortness of breath, Dizziness, Fainting spells, Swelling in the ankles, Chest pain, Increased palpitations (irregular heartbeat), Uncontrolled pain Home Medications: Medications to take at Discharge aspirin 81 mg tablet,delayed release 81 mg PO QDAY 12/05/17 atorvastatin 20 mg tablet 20 mg PO QDAY 12/05/17 clopidogrel 75 mg tablet 75 mg PO QDAY 12/05/17 hydrochlorothiazide 12.5 mg capsule 12.5 mg PO QDAY 12/05/17 tramadol 50 mg tablet 50 mg PO Q6H PRN 06/06/18 calcium carbonate-vitamin D3 600 mg (1,500 mg)-400 unit capsule 1 cap PO BID cap 12/17/18 magnesium oxide 500 mg capsule 500 mg PO DAILY cap 12/17/18 pyridoxine (vitamin B6) 100 mg tablet 100 mg PO DAILY 06/19/19 metoprolol succinate 50 mg tablet,extended release 24 hr 50 mg PO DAILY 04/27/20 turmeric root extract 500 mg capsule 500 mg PO BID cap 04/27/20 Acetaminophen [Tylenol] 1,000 mg PO BID 10/01/20 Levothyroxine Sodium [Levoxyl] 125 mcg PO DAILY 10/01/20 Losartan Potassium 50 mg PO DAILY 10/01/20 Pioglitazone [Actos] 30 mg PO DAILY 10/01/20 Potassium Chloride 10 meq PO DAILY 10/01/20 Furosemide [Lasix] 40 mg PO DAILY #30 tab 10/04/20 Following Prescriptions Were Given to Patient: Furosemide [Lasix] 40 mg PO DAILY #30 tab Transmission Status: Pending to [facility] Primary Care Physician: Eugenio Arias [Primary Care Provider] - Please follow up with your Primary Care Physician in: 1 week. Please Follow Up With: Branden Cole MD When: 2-3 days, please call his office if they did not call you on Monday. Disposition: Home Minutes spent on discharge:: 32 Patient Condition:: Stable Medical Necessity - Tobacco Use Smoking Status: Former smoker Tobacco Use: Non-smoker Meaningful Use Info Meaningful Use Diagnoses (Choose all that apply): CHF - CHF MESERET/ARB ordered at discharge?: Yes Documented LVEF (%): 65 Inpatient E&M: 26596 Disch Hosp
== END 2020-10-04 15:22 | disposition home or self-care (01) | DRG 280 ==
LOC: ED 21:41 → PCU 22:10
PROVIDERS: Internal Medicine Cardiovascular Disease; Admitting Provider Hospitalist; Emergency Provider Emergency Medicine; Visit Provider Hospitalist
DX: I21.4 Non-ST elevation (NSTEMI) myocardial infarction (principal); I50.33 Acute on chronic diastolic (congestive) heart failure; J96.01 Acute respiratory failure with hypoxia; Q23.1 Congenital insufficiency of aortic valve; I11.0 Hypertensive heart disease with heart failure; R73.9 Hyperglycemia, unspecified; G47.33 Obstructive sleep apnea (adult) (pediatric); E03.9 Hypothyroidism, unspecified; E78.5 Hyperlipidemia, unspecified; G89.29 Other chronic pain; I25.10 Atherosclerotic heart disease of native coronary artery without angina pectoris; Z87.891 Personal history of nicotine dependence; Z95.5 Presence of coronary angioplasty implant and graft
CPT/HCPCS: 36415; 71045; 80048; 82962; 83605; 83880; 84484; 85025; 85610; 85730; 93005; 93306; 93454; 93567; 94660; 99152; 99153; 99251; 99285; J7030; J7040; Q9957; Q9967; A4216; C1769; C1894; C8929; G0463; J1940

== ENCOUNTER → 2020-10-09 13:32 | Outpatient (CLI) | payer MEDICARE, SELFPAY ==
[2020-10-01 23:33] VITALS: BMI 37.6
--- NOTE | 2020-10-09 06:00 | HP_ITS ---
Problem List (1) Aortic valve disorder Status: Acute (2) Acute [id number] myocardial infarction Status: Acute (3) Atherosclerotic heart disease of [place] coronary artery without angina pectoris Status: Chronic Qualifiers: Comment: S/P angioplasty without stenting to mid LCx and proximal LCx in October 2015; (4) H/O percutaneous transluminal coronary angioplasty Status: Chronic Comment: R&L heart cath 10/06/15, PCI-PTCA-CX and FFR-RCA 10/22/15 (5) Pure hypercholesterolemia Status: Chronic (6) Essential (primary) hypertension Status: Chronic History and Physical Date of Admission: 10/09/20 Reason for Consultation: Shortness of breath History of Present Illness: The patient is a 70 year old M with past medical history significant for hypertension, aortic calcification possible bicuspid aortic valve, mild coronary artery disease who presented to the emergency room yesterday after shoveling snow and getting markedly short of breath. He also has a history of obstructive sleep apnea. In the emergency room he was noted to be hypotensive and markedly short of breath and needed to be started on intravenous nitroglycerin. He was also given intravenous diuresis. He was put on a BiPAP overnight and did well. His cardiac enzymes subsequently became abnormal and cardiology was called for further evaluation and management. Currently he is pain-free. He has had no dizziness or diaphoresis no near syncope or syncope. He previously underwent a cardiac catheterization in 2015. At that time moderate coronary artery disease was noted. He subsequently underwent an FFR of his right coronary artery which did not demonstrate any significant stenosis and therefore medical therapy was recommended. In June of this year he underwent pharmacologic myocardial perfusion stress test which demonstrated no evidence of ischemia. [] Past Medical History Allergies/Adverse Reactions: Allergies No Known Allergies Allergy (Verified 10/01/20 23:25) Home Medications: Ambulatory Orders Medication Instructions Recorded aspirin 81 mg tablet,delayed 81 mg PO QDAY 12/05/17 release atorvastatin 20 mg tablet 20 mg PO QDAY 12/05/17 clopidogrel 75 mg tablet 75 mg PO QDAY 12/05/17 hydrochlorothiazide 12.5 mg capsule 12.5 mg PO QDAY 12/05/17 tramadol 50 mg tablet 50 mg PO Q6H PRN 06/06/18 calcium carbonate-vitamin D3 600 1 cap PO BID cap 12/17/18 mg (1,500 mg)-400 unit capsule magnesium oxide 500 mg capsule 500 mg PO DAILY cap 12/17/18 pyridoxine (vitamin B6) 100 mg 100 mg PO DAILY 06/19/19 tablet metoprolol succinate 50 mg 50 mg PO DAILY 04/27/20 tablet,extended release 24 hr turmeric root extract 500 mg 500 mg PO BID cap 04/27/20 capsule Acetaminophen [Tylenol Extra 1,000 mg PO BID 10/01/20 Strength] Levothyroxine Sodium [Levoxyl] 125 mcg PO DAILY 10/01/20 Losartan Potassium 50 mg PO DAILY 10/01/20 Pioglitazone [Actos] 30 mg PO DAILY 10/01/20 Potassium Chloride 10 meq PO DAILY 10/01/20 Past Medical History (Chronic Problems): Chronic Problems (Last Reviewed 10/02/20 @ 00:[address] rBuce Rose MD) Pure hypercholesterolemia (Chronic) Hypothyroidism (Chronic) correction use of drug (Chronic) Antihyperlipidemic Premature ventricular contraction on electrocardiogram (Chronic) Palpitations (Chronic) Abnormal stress test (Chronic) Atherosclerotic heart disease of [place] coronary artery without angina pectoris (Chronic) S/P angioplasty without stenting to mid LCx and proximal LCx in October 2015; Aortic valve, bicuspid (Chronic) Essential (primary) hypertension (Chronic) - *Family History Maternal Family History: Family History (Last Reviewed 10/01/20 @ 23:[address] Bruce Rose MD) Brother CAD (coronary artery disease) Myocardial infarction Lives: Alone Smoking Status: Former smoker Tobacco Use: Non-smoker Alcohol: None Drugs: None Review of Systems - Review of Systems General: Denies: Fever, Night Sweats, Fatigue HEENT: Denies: Vision Change Cardiovascular: Reports: Shortness of Breath, Shortness of Breath with Exertion. Denies: Chest Discomfort, Orthopnea, PND, Peripheral Edema, Palpitations, Lightheadedness, Dizziness, Near Syncope, Syncope Respiratory: Denies: Cough, Sputum Production, Hemoptysis Gastrointestinal: Denies: Hematemesis, Hematochezia, Melena Genitourinary: Denies: Dysuria, Hematuria Skin: Denies: Rash Neurological: Denies: Dizziness Psychiatric: Denies: Anxiety Endocrine: Denies: Unexplained Weight Loss Hematologic/ Lymphatic: Denies: Anemia Subjectve: Pleasant gentleman in no distress Objective: Vital Signs Temp Pulse Resp BP Pulse Ox 98.4 F 83 19 H 100/54 L 97 10/02/20 05:00 10/02/20 08:07 10/02/20 07:26 10/02/20 07:00 10/02/20 07:26 Oxygen Flow Rate (L/min) 4 Oxygen Delivery Method CPAP Weight: 270 lb 1.06 oz Body Mass Index (BMI) 37.6 Finger Stick Blood Glucose 176 Intake and Output for Last 24 Hours 09/30/20 10/01/20 10/02/20 23:59 23:59 23:59 Intake Total 55.2 / 55.2 Output Total 1000 / 1000 450 / 450 Balance -1000 / -986.8 -394.8 / -394.8 General: Awake, Alert, Oriented x 3 HEENT: PERRL, EOMI, Sclera Non Icteric Neck: Supple, Good ROM, No Lymph Node Enlargement Lungs: Clear to auscultation Cardiovascular: Regular Rhythm, Normal S1, Normal S2, No Rubs, No Gallops Murmur Murmur: Grade 2/6, Early Systolic, LLSB Vascular: No Carotid Bruits, Normal Femoral Pulses, Normal Radial Pulses, Normal Dorsalis Pedal Pulse, Normal Posterior Tibial Pulses Abdomen: Bowel Sounds Present, Soft, Non Tender, No HSM, No Organomegaly Extremities: No Cyanosis, No Clubbing, No edema Musculoskeletal: No Erythema Skin: No Rashes Lymphatic: No Lymph Node Enlargement Neurological: No Focal Motor or Sensory Deficit 10/01/20 19:45: WBC 9.0, RBC 5.09, Hgb 15.3, Hct 46.9, MCV 92.1, MCH 30.1, MCHC 32.6, Plt Count 245, MPV 10.0, Immature Gran % (Auto) 0.600, Neut % (Auto) 55.3, Lymph % (Auto) 33.9, [place] % (Auto) 7.1, Eos % (Auto) 2.7, Baso % (Auto) 0.4, Absolute Neuts (auto) 5.0, Nucleated RBC % 0 10/01/20 19:45: PT 14.7, INR 1.2, APTT 26.0 10/01/20 19:45: Sodium 139, Potassium 3.5, Chloride 103, Carbon Dioxide 27.0, Anion Gap 9, BUN 14, Creatinine 1.29, Est GFR (MDRD) Af Amer 71, Est GFR (MDRD) Non-Af 59 L, BUN/Creatinine Ratio 10.9, Glucose 176 H, Calcium 8.9, Troponin I 0.148 H 10/01/20 19:45: B-Natriuretic Peptide 85.9 10/01/20 20:53: Lactic Acid Cancelled 10/01/20 22:40: Lactic Acid 2.0 10/01/20 23:55: Troponin I 2.670 H* 10/02/20 03:25: Troponin I 3.830 H* 10/02/20 03:25: Lactic Acid 1.0 10/02/20 06:05: WBC 10.6, RBC 4.53 L, Hgb 13.5, Hct 42.6, MCV 94.0, MCH 29.8, MCHC 31.7 L, Plt Count 221, MPV 9.8, Immature Gran % (Auto) 0.400, Neut % (Auto) 67.1, Lymph % (Auto) 22.7, Knott % (Auto) 8.3, Eos % (Auto) 1.2, Baso % (Auto) 0.3, Absolute Neuts (auto) 7.1, Nucleated RBC % 0 10/02/20 06:05: Sodium 138, Potassium 3.7, Chloride 105, Carbon Dioxide 28.0, Anion Gap 5, BUN 17, Creatinine 1.12, Est GFR (MDRD) Af Amer 84, Est GFR (MDRD) Non-Af 69, BUN/Creatinine Ratio 15.2, Glucose 142 H, Calcium 8.6 10/02/20 06:05: Troponin I 2.960 H* Rhythm: EKG: Normal sinus rhythm with frequent premature ventricular complexes ECHO: Stress Test: Cardiac Cath: PCI: CT Surgery: Holter monitor: EPS: PPM: CXR: Chest CT Scan: Assessment/Plan 1. Non-ST elevation myocardial infarction * The patient presents with a non-ST elevation myocardial infarction. The patient has underlying coronary artery disease. My recommendation at this time will be for him to undergo a left heart catheterization and depending on the findings further recommendations will be made. * I have discussed the above with the patient who understands and agrees to proceed. This will be arranged this morning. * 2. Hypertension * Patient's blood pressure appears to be have been elevated. He was started on intravenous nitroglycerin and is doing better at this time. No major changes will be made. * 3. Mild aortic stenosis * . Patient was noted to have an abnormal aortic valve. At some point it may be helpful to perform a transesophageal echocardiogram to assess his valve anatomy. * * Thank you for allowing me to participate in the care of your patient. Please don't hesitate to call if any issues arise. I have examined the patient the following changes are noted: There are noninvasive and invasive cardiovascular evaluation during his recent hospitalization. This included a transthoracic echocardiogram performed on 10-02-2020. The results are as noted. Interpretation Summary The study was technically difficult. Contrast injection was performed. Segmental dysfunction with preserved ejection fraction (see wall motion). The estimated ejection fraction is 65 %. There is mild mitral annular calcification. Trivial mitral valve insufficiency. Trivial tricuspid valve insufficiency. Based upon the 2D echocardiographic images obtained the aortic valve apparatus is not well visualized, however, bicuspid aortic valve with a fused and calcified raphae cannot be excluded. Severe focal aortic valve calcification. Mild aortic stenosis. Trivial aortic valve insufficiency. Unable to estimate RV systolic pressure/pulmonary artery pressure due to technically difficult study. No evidence for diastolic dysfunction. Consider further evaluation of aortic valve anatomy and physiology with transesophageal echocardiogram if clinically indicated. Is also included a diagnostic cardiac catheterization on 10-02-2020. The results are as noted. CONCLUSIONS [place] Multivessel CAD Aortic valve: eccentric appearing RECOMMENDATIONS Risk factor modification Medical therapy Consider further evaluation of the aortic valve with TTE / BENNETT Surgery consult for coronary revascularization Surgery consult for valvular disease DESCRIPTION OF PROCEDURE The patient arrived to the procedure lab. The risks and benefits of the procedure as well as a full description of our services here and current unavailability of surgical backup were fully explained to the patient and/or their significant other prior to the catheterization. The Timeout was completed, verifying the correct patient and procedure. The patient's procedural site was prepped and draped in the usual fashion. Local anesthetic was given subcutaneously to right radial region with Lidocaine 2%. Using a modified Seldinger technique, arterial access was obtained via the right radial artery, a 6Fr sheath was inserted. Left Coronary Artery selective angiography was performed in multiple views using a 5 Fr. 4.0 [place] catheter. Right Coronary Artery selective angiography was then performed in multiple views using a 5 Fr. 4.0 [place] catheter. Ascending (root) aorta selective angiography was then performed in single view. Ascending (root) aorta selective angiography was then performed in single view.The arterial sheath was pulled and a TR Band was applied for hemostasis CORONARY ANGIOGRAPHY DOMINANCE: Right Dominant LEFT HEART ASSESSMENT Left Ventricular Ejection Fraction: Not assessed LEFT MAIN: Angiographically normal LEFT ANTERIOR DESCENDING ARTERY: OSTIAL LAD: 25 % Stenosis PROX LAD: Mild calcification, 50 % Stenosis MID LAD: s/p DX: 75 % Stenosis SEPTAL: ostial: 95 % Stenosis CIRCUMFLEX ARTERY: OSTIAL CIRC: 50 % Stenosis PROX CIRC: 85 % Stenosis MID CIRC: 50 % Stenosis, diffuse: eccentric: 25 % Stenosis RIGHT CORONARY ARTERY: Mild calcification PROX RCA: eccentric: 50 % Stenosis DISTAL RCA: 50 % Stenosis VALVE FINDINGS: eccentric appearing Aortic valve: eccentric appearing AORTIC ROOT: Angiographically normal The patient was recommended for continued medical therapy, recuperation of his acute coronary syndrome event, and subsequent follow-up of his aortic valve disease with a BENNETT in preparation for a tertiary care center CT surgery evaluation for CABG and possible aortic valve replacement. The BENNETT procedure risks and benefits was discussed and reviewed with the patient. The patient granted consent. The patient underwent COVID-19 testing this day with the rapid antigen test. It was reported as nonreactive. The surgeon/proceduralist and patient have discussed in detail the risk of exposure to and/or potential harm posed by the COVID-19 virus with having a surgery/procedure at this time versus the risk of delaying the surgery/procedure. It is not possible to know either the risk of delaying the surgery or procedure or chance of getting an infection with perfect accuracy, but a joint decision was made between the patient and the surgeon/proceduralist to proceed at this time with the scheduled surgery/procedure as indicated on the consent form. Procedure Criteria Procedure Type: Elective COVID Risk Discussion: The surgeon/proceduralist and patient have discussed in detail the risk of exposure to and/or potential harm posed by the COVID-19 virus with having a surgery/procedure at this time versus the risk of delaying the surgery/procedure. It is not possible to know either the risk of delaying the surgery or procedure or chance of getting an infection with perfect accuracy, but a joint decision was made between the patient and the surgeon/proceduralist to proceed at this time with the scheduled surgery/procedure as indicated on the consent form.
--- NOTE | 2020-10-09 11:56 | HP.PCM_ITS ---
Problem List (1) Aortic valve disorder Status: Acute (2) Acute [id number] myocardial infarction Status: Acute (3) Atherosclerotic heart disease of [place] coronary artery without angina pectoris Status: Chronic Qualifiers: Comment: S/P angioplasty without stenting to mid LCx and proximal LCx in October 2015; (4) H/O percutaneous transluminal coronary angioplasty Status: Chronic Comment: R&L heart cath 10/06/15, PCI-PTCA-CX and FFR-RCA 10/22/15 (5) Pure hypercholesterolemia Status: Chronic (6) Essential (primary) hypertension Status: Chronic History and Physical Date of Admission: 10/09/20 [facility] Medical Records Department [address] [place] [address] Consultation 10/02/20 0853 MR#: [id number] Acct: [id number] Name: SUE RIOS Rep #:[id number] : 1950 70 From: Carson Baca MD PCP: Eugenio Arias Status:ADM IN Location: [address] Reason for Consult Date of Consultation: 10/02/20 Reason for Consultation: Shortness of breath History of Present Illness: The patient is a 70 year old M with past medical history significant for hypertension, aortic calcification possible bicuspid aortic valve, mild coronary artery disease who presented to the emergency room yesterday after shoveling snow and getting markedly short of breath. He also has a history of obstructive sleep apnea. In the emergency room he was noted to be hypotensive and markedly short of breath and needed to be started on intravenous nitroglycerin. He was also given intravenous diuresis. He was put on a BiPAP overnight and did well. His cardiac enzymes subsequently became abnormal and cardiology was called for further evaluation and management. Currently he is pain-free. He has had no dizziness or diaphoresis no near syncope or syncope. He previously underwent a cardiac catheterization in 2016. At that time moderate coronary artery disease was noted. He subsequently underwent an FFR of his right coronary artery which did not demonstrate any significant stenosis and therefore medical therapy was recommended. In June of this year he underwent pharmacologic myocardial perfusion stress test which demonstrated no evidence of ischemia. [] Past Medical History Allergies/Adverse Reactions: Allergies No Known Allergies Allergy (Verified 10/01/20 23:25) Home Medications: Ambulatory Orders Medication Instructions Recorded aspirin 81 mg tablet,delayed 81 mg PO QDAY 12/05/17 release atorvastatin 20 mg tablet 20 mg PO QDAY 12/05/17 clopidogrel 75 mg tablet 75 mg PO QDAY 12/05/17 hydrochlorothiazide 12.5 mg capsule 12.5 mg PO QDAY 12/05/17 tramadol 50 mg tablet 50 mg PO Q6H PRN 06/06/18 calcium carbonate-vitamin D3 600 1 cap PO BID cap 12/17/18 mg (1,500 mg)-400 unit capsule magnesium oxide 500 mg capsule 500 mg PO DAILY cap 12/17/18 pyridoxine (vitamin B6) 100 mg 100 mg PO DAILY 06/19/19 tablet metoprolol succinate 50 mg 50 mg PO DAILY 04/27/20 tablet,extended release 24 hr turmeric root extract 500 mg 500 mg PO BID cap 04/27/20 capsule Acetaminophen [Tylenol Extra 1,000 mg PO BID 10/01/20 Strength] Levothyroxine Sodium [Levoxyl] 125 mcg PO DAILY 10/01/20 Losartan Potassium 50 mg PO DAILY 10/01/20 Pioglitazone [Actos] 30 mg PO DAILY 10/01/20 Potassium Chloride 10 meq PO DAILY 10/01/20 Past Medical History (Chronic Problems): Chronic Problems (Last Reviewed 10/02/20 @ 00:[address] Bruce Rose MD) Pure hypercholesterolemia (Chronic) Hypothyroidism (Chronic) care home use of drug (Chronic) Antihyperlipidemic Premature ventricular contraction on electrocardiogram (Chronic) Palpitations (Chronic) Abnormal stress test (Chronic) Atherosclerotic heart disease of [place] coronary artery without angina pectoris (Chronic) S/P angioplasty without stenting to mid LCx and proximal LCx in October 2015; Aortic valve, bicuspid (Chronic) Essential (primary) hypertension (Chronic) - *Family History Maternal Family History: Family History (Last Reviewed 10/01/20 @ 23:[address] Bruce Rose MD) Brother CAD (coronary artery disease) Myocardial infarction Lives: Alone Smoking Status: Former smoker Tobacco Use: Non-smoker Alcohol: None Drugs: None Review of Systems - Review of Systems General: Denies: Fever, Night Sweats, Fatigue HEENT: Denies: Vision Change Cardiovascular: Reports: Shortness of Breath, Shortness of Breath with Exertion. Denies: Chest Discomfort, Orthopnea, PND, Peripheral Edema, Palpitations, Lightheadedness, Dizziness, Near Syncope, Syncope Respiratory: Denies: Cough, Sputum Production, Hemoptysis Gastrointestinal: Denies: Hematemesis, Hematochezia, Melena Genitourinary: Denies: Dysuria, Hematuria Skin: Denies: Rash Neurological: Denies: Dizziness Psychiatric: Denies: Anxiety Endocrine: Denies: Unexplained Weight Loss Hematologic/ Lymphatic: Denies: Anemia Subjectve: Pleasant gentleman in no distress Objective: Vital Signs Temp Pulse Resp BP Pulse Ox 98.4 F 83 19 H 100/54 L 97 10/02/20 05:00 10/02/20 08:07 10/02/20 07:26 10/02/20 07:00 10/02/20 07:26 Oxygen Flow Rate (L/min) 4 Oxygen Delivery Method CPAP Weight: 270 lb 1.06 oz Body Mass Index (BMI) 37.6 Finger Stick Blood Glucose 176 Intake and Output for Last 24 Hours 09/30/20 10/01/20 10/02/20 23:59 23:59 23:59 Intake Total 55.2 / 55.2 Output Total 1000 / 1000 450 / 450 Balance -1000 / -986.8 -394.8 / -394.8 General: Awake, Alert, Oriented x 3 HEENT: PERRL, EOMI, Sclera Non Icteric Neck: Supple, Good ROM, No Lymph Node Enlargement Lungs: Clear to auscultation Cardiovascular: Regular Rhythm, Normal S1, Normal S2, No Rubs, No Gallops Murmur Murmur: Grade 2/6, Early Systolic, LLSB Vascular: No Carotid Bruits, Normal Femoral Pulses, Normal Radial Pulses, Normal Dorsalis Pedal Pulse, Normal Posterior Tibial Pulses Abdomen: Bowel Sounds Present, Soft, Non Tender, No HSM, No Organomegaly Extremities: No Cyanosis, No Clubbing, No edema Musculoskeletal: No Erythema Skin: No Rashes Lymphatic: No Lymph Node Enlargement Neurological: No Focal Motor or Sensory Deficit 10/01/20 19:45: WBC 9.0, RBC 5.09, Hgb 15.3, Hct 46.9, MCV 92.1, MCH 30.1, MCHC 32.6, Plt Count 245, MPV 10.0, Immature Gran % (Auto) 0.600, Neut % (Auto) 55.3, Lymph % (Auto) 33.9, [place] % (Auto) 7.1, Eos % (Auto) 2.7, Baso % (Auto) 0.4, Absolute Neuts (auto) 5.0, Nucleated RBC % 0 10/01/20 19:45: PT 14.7, INR 1.2, APTT 26.0 10/01/20 19:45: Sodium 139, Potassium 3.5, Chloride 103, Carbon Dioxide 27.0, Anion Gap 9, BUN 14, Creatinine 1.29, Est GFR (MDRD) Af Amer 71, Est GFR (MDRD) Non-Af 59 L, BUN/Creatinine Ratio 10.9, Glucose 176 H, Calcium 8.9, Troponin I 0.148 H 10/01/20 19:45: B-Natriuretic Peptide 85.9 10/01/20 20:53: Lactic Acid Cancelled 10/01/20 22:40: Lactic Acid 2.0 10/01/20 23:55: Troponin I 2.670 H* 10/02/20 03:25: Troponin I 3.830 H* 10/02/20 03:25: Lactic Acid 1.0 10/02/20 06:05: WBC 10.6, RBC 4.53 L, Hgb 13.5, Hct 42.6, MCV 94.0, MCH 29.8, MCHC 31.7 L, Plt Count 221, MPV 9.8, Immature Gran % (Auto) 0.400, Neut % (Auto) 67.1, Lymph % (Auto) 22.7, [place] % (Auto) 8.3, Eos % (Auto) 1.2, Baso % (Auto) 0.3, Absolute Neuts (auto) 7.1, Nucleated RBC % 0 10/02/20 06:05: Sodium 138, Potassium 3.7, Chloride 105, Carbon Dioxide 28.0, Anion Gap 5, BUN 17, Creatinine 1.12, Est GFR (MDRD) Af Amer 84, Est GFR (MDRD) Non-Af 69, BUN/Creatinine Ratio 15.2, Glucose 142 H, Calcium 8.6 10/02/20 06:05: Troponin I 2.960 H* Rhythm: EKG: Normal sinus rhythm with frequent premature ventricular complexes ECHO: Stress Test: Cardiac Cath: PCI: CT Surgery: Holter monitor: EPS: PPM: CXR: Chest CT Scan: Assessment/Plan 1. Non-ST elevation myocardial infarction * The patient presents with a non-ST elevation myocardial infarction. The patient has underlying coronary artery disease. My recommendation at this time will be for him to undergo a left heart catheterization and depending on the findings further recommendations will be made. * I have discussed the above with the patient who understands and agrees to proceed. This will be arranged this morning. * 2. Hypertension * Patient's blood pressure appears to be have been elevated. He was started on intravenous nitroglycerin and is doing better at this time. No major changes will be made. * 3. Mild aortic stenosis * . Patient was noted to have an abnormal aortic valve. At some point it may be helpful to perform a transesophageal echocardiogram to assess his valve anatomy. * * Thank you for allowing me to participate in the care of your patient. Please don't hesitate to call if any issues arise. 10/02/20 0859 <Electronically signed by Carson Roblero> Date _ Carson Baca MD I have examined the patient the following changes are noted: There are noninvasive and invasive cardiovascular evaluation during his recent hospitalization. This included a transthoracic echocardiogram performed on 10-02-2020. The results are as noted. Interpretation Summary The study was technically difficult. Contrast injection was performed. Segmental dysfunction with preserved ejection fraction (see wall motion). The estimated ejection fraction is 65 %. There is mild mitral annular calcification. Trivial mitral valve insufficiency. Trivial tricuspid valve insufficiency. Based upon the 2D echocardiographic images obtained the aortic valve apparatus is not well visualized, however, bicuspid aortic valve with a fused and calcified raphae cannot be excluded. Severe focal aortic valve calcification. Mild aortic stenosis. Trivial aortic valve insufficiency. Unable to estimate RV systolic pressure/pulmonary artery pressure due to technically difficult study. No evidence for diastolic dysfunction. Consider further evaluation of aortic valve anatomy and physiology with transesophageal echocardiogram if clinically indicated. Is also included a diagnostic cardiac catheterization on 10-02-2020. The results are as noted. CONCLUSIONS [place] Multivessel CAD Aortic valve: eccentric appearing RECOMMENDATIONS Risk factor modification Medical therapy Consider further evaluation of the aortic valve with TTE / BENNETT Surgery consult for coronary revascularization Surgery consult for valvular disease DESCRIPTION OF PROCEDURE The patient arrived to the procedure lab. The risks and benefits of the procedure as well as a full description of our services here and current unavailability of surgical backup were fully explained to the patient and/or their significant other prior to the catheterization. The Timeout was completed, verifying the correct patient and procedure. The patient's procedural site was prepped and draped in the usual fashion. Local anesthetic was given subcutane ously to right radial region with Lidocaine 2%. Using a modified Seldinger technique, arterial access was obtained via the right radial artery, a 6Fr sheath was inserted. Left Coronary Artery selective angiography was performed in multiple views using a 5 Fr. 4.0 [place] catheter. Right Coronary Artery selective angiography was then performed in multiple views using a 5 Fr. 4.0 [place] catheter. Ascending (root) aorta selective angiography was then performed in single view. Ascending (root) aorta selective angiography was then performed in single view.The arterial sheath was pulled and a TR Band was applied for hemostasis CORONARY ANGIOGRAPHY DOMINANCE: Right Dominant LEFT HEART ASSESSMENT Left Ventricular Ejection Fraction: Not assessed LEFT MAIN: Angiographically normal LEFT ANTERIOR DESCENDING ARTERY: OSTIAL LAD: 25 % Stenosis PROX LAD: Mild calcification, 50 % Stenosis MID LAD: s/p DX: 75 % Stenosis SEPTAL: ostial: 95 % Stenosis CIRCUMFLEX ARTERY: OSTIAL CIRC: 50 % Stenosis PROX CIRC: 85 % Stenosis MID CIRC: 50 % Stenosis, diffuse: eccentric: 25 % Stenosis RIGHT CORONARY ARTERY: Mild calcification PROX RCA: eccentric: 50 % Stenosis DISTAL RCA: 50 % Stenosis VALVE FINDINGS: eccentric appearing Aortic valve: eccentric appearing AORTIC ROOT: Angiographically normal The patient was recommended for continued medical therapy, recuperation of his acute coronary syndrome event, and subsequent follow-up of his aortic valve disease with a BENNETT in preparation for a tertiary care center CT surgery evaluation for CABG and possible aortic valve replacement. The BENNETT procedure risks and benefits was discussed and reviewed with the patient. The patient granted consent. The patient underwent COVID-19 testing this day with the rapid antigen test. It was reported as nonreactive. The surgeon/proceduralist and patient have discussed in detail the risk of exposure to and/or potential harm posed by the COVID-19 virus with having a surgery/procedure at this time versus the risk of delaying the surgery/procedure. It is not possible to know either the risk of delaying the surgery or procedure or chance of getting an infection with perfect accuracy, b ut a joint decision was made between the patient and the surgeon/proceduralist to proceed at this time with the scheduled surgery/procedure as indicated on the consent form. Procedure Criteria Procedure Type: Elective COVID Risk Discussion: The surgeon/proceduralist and patient have discussed in detail the risk of e xposure to and/or potential harm posed by the COVID-19 virus with having a surgery/procedure at this time versus the risk of delaying the surgery/procedure. It is not possible to know either the risk of delaying the surgery or procedure or chance of getting an infection with perfect accuracy, but a joint decision was made between the patient and the surgeon/proceduralist to proceed at this time with the scheduled surgery/procedure as indicated on the consent form.
--- NOTE | 2020-10-09 12:11 | ECHOTEE_ITS ---
Reason For Study: AV disorder Medication BENNETT probe 6VT-D (SN [id number]) passed without difficulty. No complications were noted. Cetacaine Topical [place] given X4 orally. Versed 1 mg given slow IVP. Fentanyl 50 mcg given slow IVP. Performed a rapid injection of agitated mix of 9 cc saline and 1cc air to assess for atrial septal defect. Left Ventricle Normal LV size. Segmental dysfunction with preserved ejection fraction (see wall motion). The estimated ejection fraction is 55 %. Mid-inferoseptal : Hypokinetic. Mid-anteroseptal : Hypokinetic. Right Ventricle Normal RV size. The right ventricular wall motion is normal. 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 Normal left atrium. There is no sponatenous contrast in the left atrium. No thrombus is detected in the left atrial appendage. Normal right atrium. There is no sponatenous contrast in the right atrium. No RA/appendage thrombus identified. Mitral Valve There is no mitral annular calcification. Normal mitral valve. Trivial mitral valve insufficiency. Tricuspid Valve Normal tricuspid valve. Trivial tricuspid valve insufficiency. Aortic Valve Based upon the 2D echocardiographic images obtained of the aortic valve apparatus appears to be compatible with a tricuspid aortic valve with a fused calcified raphae with mild diffuse thickening of the aortic valve leaflets and mild focal aortic valve leaflet calcification functioning as a bicuspid aortic valve with a planimetry area of approximately 2.7 cm??. Mild (1+) aortic valve insufficiency. Pulmonic Valve The pulmonic valve is not well visualized. Vessels Mild atherosclerosis of the descending aorta. Pericardium No pericardial effusion. Interpretation Summary Segmental dysfunction with preserved ejection fraction (see wall motion). The estimated ejection fraction is 55 %. There is no sponatenous contrast in the left atrium. No thrombus is detected in the left atrial appendage. Trivial mitral valve insufficiency. Trivial tricuspid valve insufficiency. Based upon the 2D echocardiographic images obtained of the aortic valve apparatus appears to be compatible with a tricuspid aortic valve with a fused calcified raphae with mild diffuse thickening of the aortic valve leaflets and mild focal aortic valve leaflet calcification functioning as a bicuspid aortic valve with a planimetry area of approximately 2.7 cm??. Mild (1+) aortic valve insufficiency. Positive agitated saline contrast study with right to left interatrial shunt during Valsalva maneuver compatible with a small pressure patent PFO. Mild atherosclerosis of the descending aorta. Ordering Physician: Branden Cole Referring Physician: Eugenio Arias Performed By: Umm Garcia, REILLY, RVT
[2020-10-09 14:26] LABS: SARSInt. QC ok y
== END ==
PROVIDERS: Referring Provider Internal Medicine Cardiovascular Disease; Visit Provider Internal Medicine Cardiovascular Disease
DX: I35.0 Nonrheumatic aortic (valve) stenosis (principal)
CPT/HCPCS: 87426; 87635; 93312; 93320; 93325; C9803; J7040; U0005; A4216; U0002; U0003

== ENCOUNTER → 2020-12-24 11:04 | Outpatient (CLI) | payer MEDICARE, SELFPAY ==
[2020-12-24 10:16] VITALS: BMI 37.6
[2020-12-24 12:14] LABS: Anion Gap 4 (5-15); BUN 15 mg/dL (7-18); BUN/Creat Ratio 15.3 RATIO (10-20); Calcium,Total 9.5 mg/dL (8.5-10.1); Chloride 105 mmol/L (98-107); Creatinine, Serum 0.98 mg/dL (0.70-1.30); EST Glomerular Filtration Rate 81 mL/min (>60); Est Glom Filt Rate - Afr Amer 98 mL/min (>60); Glucose 146 mg/dL (74-106); Potassium 3.7 mmol/L (3.5-5.1); Sodium Level 137 mmol/L (136-145)
== END ==
PROVIDERS: Referring Provider Physician Assistant Medical; Visit Provider Physician Assistant Medical
DX: I25.10 Atherosclerotic heart disease of native coronary artery without angina pectoris (principal); I10 Essential (primary) hypertension
CPT/HCPCS: 36415; 80048

== ENCOUNTER → 2021-02-11 11:28 | Outpatient (CLI) | payer MEDICARE, SELFPAY ==
[2021-02-11 10:23] VITALS: BMI 35.5
--- NOTE | 2021-02-11 11:30 | RAD_ITS ---
STUDY: X-RAY CHEST REASON FOR EXAM: Male, 70 years old. cough TECHNIQUE: PA and lateral views of the chest. COMPARISON: 10/01/2020 FINDINGS: Status post median sternotomy. The lungs are clear and expanded. There is no demonstrated pleural abnormality. Normal size heart. Normal mediastinum and heidi. Normal visualized pulmonary arteries. Normal visualized aortic arch and descending thoracic aorta. Normal visualized thoracic spine. Normal visualized ribs, clavicles, and shoulders. There is no demonstrated abnormality of the visualized soft tissue structures of the upper abdomen. RAD/Chest PA and Lateral IMPRESSION: No active disease. Electronically Signed: Zion Su MD at 12:41 EDT Tel , Service support ,
== END ==
PROVIDERS: Referring Provider Physician Assistant Medical; Visit Provider Physician Assistant Medical
DX: R05 Cough (principal)
CPT/HCPCS: 71046

== ENCOUNTER → 2021-03-22 08:43 | Outpatient (CLI) | payer MEDICARE, SELFPAY ==
[2021-02-11 10:23] VITALS: BMI 35.5
[2021-03-22 10:46] LABS: ALB/GLOB Ratio 0.9 RATIO (0.9-2.4); AST(SGOT) 27 U/L (15-37); Alanine Aminotransfer ALT/SGPT 31 U/L (16-61); Albumin, Serum 3.6 g/dL (3.2-5.0); Alkaline Phosphatase 106 U/L (45-117); Anion Gap 7 (5-15); BUN 16 mg/dL (7-18); BUN/Creat Ratio 17.6 RATIO (10-20); Calcium,Total 8.4 mg/dL (8.5-10.1); Chloride 103 mmol/L (98-107); Cholesterol 111 mg/dL (200); Creatinine, Serum 0.91 mg/dL (0.70-1.30); EST Glomerular Filtration Rate 88 mL/min (>60); Est Glom Filt Rate - Afr Amer 107 mL/min (>60); Globulin 4.1 g/dL (2.2-4.2); Glucose 131 mg/dL (74-106); High Density Lipoprotein 31 mg/dL; Potassium 4.1 mmol/L (3.5-5.1); Protein, Total 7.7 g/dL (6.4-8.2); Sodium Level 135 mmol/L (136-145); Thyroid Stim Hormone (TSH) 3.15 uIU/mL (0.358-3.74); Triglycerides 229 mg/dL; Very Low Density Lipoprotein 46 mg/dL (5-40)
== END ==
PROVIDERS: Referring Provider Family Medicine; Visit Provider Family Medicine
DX: E78.5 Hyperlipidemia, unspecified (principal); I10 Essential (primary) hypertension; E03.9 Hypothyroidism, unspecified; E11.9 Type 2 diabetes mellitus without complications
CPT/HCPCS: 36415; 80053; 80061; 84443

== ENCOUNTER 2021-08-23 09:56 | Outpatient (CLI) | payer MEDICARE, SELFPAY ==
[2021-08-23 12:08] LABS: Absolute Lymphocyte Count 2.22 X10^3/uL (0.83-4.51); Absolute Neutrophil Count 4.9 X10^3/uL (2.0-7.7); Basophil# 0.03 X10^3/uL; Basophil% 0.4 % (0-1); Eosinophils% 2.5 % (0-5); Hematocrit 49.7 % (40-54); Hemoglobin 15.8 g/dL (13.0-16.5); Lymphocyte # 2.22 X10^3/ul (0.83-4.51); Lymphocyte % 27.8 % (19-41); Mean Corp Hgb Conc 31.8 g/dL (32-36); Mean Corpuscular Hgb 28.4 pg (27.0-32.0); Mean Corpuscular Volume 89.4 fL (80-94); Mean Platelet Vol. 9.6 fl (6.2-12.0); Monocyte# 0.64 X10^3/uL; NRBC Flagged by Analyzer 0 % (0-5); Neutrophil # 4.87 X10^3/uL (2.7-7.7); Neutrophil % 60.8 % (47-70); Platelet Count 218 K/mm3 (150-450); RBC Distribution Width CV 14.5 % (11.6-14.6); RBC Distribution Width SD 47.7 fl (35.1-43.9); Red Blood Count 5.56 M/mm3 (4.6-6.2)
[2021-08-23 12:29] LABS: Hemoglobin A1c 6.8 % (3.8-5.6)
[2021-08-23 12:32] LABS: ALB/GLOB Ratio 0.8 RATIO (0.9-2.4); AST(SGOT) 25 U/L (15-37); Alanine Aminotransfer ALT/SGPT 36 U/L (16-61); Albumin, Serum 3.3 g/dL (3.2-5.0); Alkaline Phosphatase 94 U/L (45-117); Anion Gap 6 (5-15); BUN 12 mg/dL (7-18); BUN/Creat Ratio 13.7 RATIO (10-20); Calcium,Total 8.8 mg/dL (8.5-10.1); Chloride 108 mmol/L (98-107); Cholesterol 98 mg/dL (200); Creatinine, Serum 0.88 mg/dL (0.70-1.30); EST Glomerular Filtration Rate 92 mL/min (>60); Est Glom Filt Rate - Afr Amer 111 mL/min (>60); Globulin 4.4 g/dL (2.2-4.2); Glucose 137 mg/dL (74-106); High Density Lipoprotein 32 mg/dL; PSA,Total - Annual Screen 0.28 ng/mL (0.00-4.00); Potassium 4.4 mmol/L (3.5-5.1); Protein, Total 7.7 g/dL (6.4-8.2); Sodium Level 139 mmol/L (136-145); Thyroid Stim Hormone (TSH) 3.62 uIU/mL (0.358-3.74); Triglycerides 172 mg/dL; Very Low Density Lipoprotein 34 mg/dL (5-40)
== END 2021-08-23 23:59 | disposition short-term general hospital (02) ==
LOC: MTLAB 09:57
PROVIDERS: Referring Provider Family Medicine; Visit Provider Family Medicine
DX: Z00.00 Encounter for general adult medical examination without abnormal findings (principal); E11.9 Type 2 diabetes mellitus without complications; I25.10 Atherosclerotic heart disease of native coronary artery without angina pectoris; E78.5 Hyperlipidemia, unspecified; I10 Essential (primary) hypertension; Z12.5 Encounter for screening for malignant neoplasm of prostate
CPT/HCPCS: 36415; 80053; 80061; 83036; 84153; 84443; 85025; G0103

== ENCOUNTER 2021-10-27 09:50 | Outpatient (CLI) | payer MEDICARE, SELFPAY ==
--- NOTE | 2021-10-27 09:52 | ECHOCS_ITS ---
Reason For Study: VALVE REPLACEMENT EVAL Procedure This was a 2D Doppler, Color Flow transthoracic echocardiogram. The study was technically difficult. Contrast injection was performed. Exam performed in department. Left Ventricle Normal LV size. Segmental dysfunction with preserved ejection fraction (see wall motion). The estimated ejection fraction is 65 %. No evidence for diastolic dysfunction. Mid-inferoseptal : Hypokinetic. Mid-anteroseptal : Hypokinetic. Right Ventricle Normal RV size. Normal systolic function. Atria Normal left atrium. Normal right atrium. No doppler evidence for ASD. Mitral Valve There is mild mitral annular calcification. Extension of the mitral annular calcification on the base of the posterior mitral valve leaflet. Trivial mitral valve insufficiency. Tricuspid Valve Normal tricuspid valve. Trivial tricuspid valve insufficiency. Right ventricular systolic pressure estimated to be 23 mmHg. Aortic Valve The aortic valve leaflets are not well visualized, however, based upon the 2D echocardiographic images obtained there appears to be moderate focal thickening, calcification, and partial restriction. Moderate aortic stenosis. Pulmonic Valve The pulmonic valve is not well visualized. Great Vessels The aortic root is not well visualized. Pericardium/Pleural Trivial pericardial effusion. There are no echocardiographic indications of cardiac tamponade. Medication 22 gauge I.V. with prn adaptor inserted into right arm. Diluted definity 2.5ml given slow IV push to enhance endocardial definition. MMode/2D Measurements & Calculations LVIDd: 4.5 cm IVSd: 1.2 cm LVOT diam: 2.0 cm LVIDs: 2.9 cm LVPWd: 1.2 cm RVDd: 3.4 cm FS: 34.8 % LVOT area: 3.2 cm2 LAV(MOD-sp4): 30.9 ml LVAd ap4: 34.1 cm2 LVAd ap2: 14.6 cm2 LVLd ap4: 9.1 cm LVLd ap2: 5.2 cm EDV(MOD-sp4): 105.9 ml EDV(MOD-sp2): 34.5 ml EDV(sp4-el): 108.7 ml EDV(sp2-el): 34.7 ml LVAs ap4: 17.8 cm2 LVLs ap4: 7.4 cm ESV(MOD-sp4): 35.8 ml ESV(sp4-el): 36.1 ml EF(MOD-sp4): 66.2 % EF(sp4-el): 66.8 % SV(MOD-sp4): 70.2 ml SV(sp4-el): 72.7 ml LA A4 area: 13.1 cm2 LA dimension(2D): 3.4 cm RA A4 area: 11.9 cm2 Time Measurements MV dec time: 0.28 sec Doppler Measurements & Calculations MV E max tom: 69.2 cm/sec Lat Peak E' Tom: 7.8 cm/sec Med Peak E' Tom: 8.0 cm/sec MV A max tom: 88.7 cm/sec E/E' lat: 8.9 E/E' med: 8.6 MV E/A: 0.78 Ao V2 max: 319.5 cm/sec LV V1 max: 94.5 cm/sec SV(LVOT): 73.8 ml Ao max P.8 mmHg LV V1 max P.6 mmHg Ao V2 mean: 247.4 cm/sec LV V1 mean P.1 mmHg Ao mean P.8 mmHg LV V1 mean: 68.1 cm/sec Ao V2 VTI: 74.9 cm LV V1 VTI: 23.3 cm RODGER(I,D): 0.99 cm2 RODGER(V,D): 0.94 cm2 PA V2 max: 154.5 cm/sec TR max tom: 224.5 cm/sec TR max P.2 mmHg ECHO/Echo Complete W/ Contrast Interpretation Summary The study was technically difficult. Contrast injection was performed. Segmental dysfunction with preserved ejection fraction (see wall motion). The estimated ejection fraction is 65 %. There is mild mitral annular calcification. Extension of the mitral annular calcification on the base of the posterior mitr al valve leaflet. Trivial mitral valve insufficiency. Trivial tricuspid valve insufficiency. The aortic valve leaflets are not well visualized, however, based upon the 2D e chocardiographic images obtained there appears to be moderate focal thickening, calcification, a nd partial restriction. Moderate aortic stenosis. Trivial pericardial effusion. There are no echocardiographic indications of cardiac tamponade. Right ventricular systolic pressure estimated to be 23 mmHg. No evidence for diastolic dysfunction. Ordering Physician: Xi Chawla/Branden Cole Referring Physician: GABINO SOLO Performed By: Delores Thomas RDCS
== END 2021-10-27 23:59 | disposition home or self-care (01) ==
LOC: CVS 09:52
PROVIDERS: Referring Provider Physician Assistant Medical; Visit Provider Physician Assistant Medical
DX: Q23.1 Congenital insufficiency of aortic valve (principal)
CPT/HCPCS: 93306; Q9957; A4216; C8929

== ENCOUNTER → 2021-11-30 | Outpatient (CLI) | payer MEDICARE, SELFPAY ==
--- NOTE | 2021-11-30 08:11 | STRESSREP ---
Stress Test Report Date: 11-30-2021 Procedure: Pharmacologic stress nuclear imaging study Indications: Chest discomfort; shortness of breath/dyspnea on exertion; CAD; PCI; CABG; status post aortic valve repair; hyperlipidemia; hypertension Consent: Per the patient Procedure: The patient underwent pharmacologic (Regadenoson 0.4mg ) evaluation with a peak heart rate of 81 beats per minute (53%predicted maximal heart rate) and a peak blood pressure of 150/68 mmHg. The baseline ECG demonstrated normal sinus rhythm; PVCs; poor R wave progression; nonspecific ST/T wave abnormality. The peak pharmacologic ECG demonstrated no obvious ECG changes. There were occasional PVCs pretest, during infusion, and recovery. There was no complaint of chest discomfort during pharmacologic infusion or recovery. The examination was discontinued secondary to completion of protocol. Impression: 1. Pharmacologic (Regadenoson) evaluation 2. Peak pharmacologic ECG with no obvious ECG changes. 3. There were occasional PVCs pretest, during infusion, and recovery. 4. Nuclear images pending Myocardial perfusion imaging study: Technique: The patient was injected with 14.7 millicuries of technetium 99m Cardiolite and subsequently rest SPECT Cardiolite nuclear imaging was obtained in the horizontal long, vertical long, and short axis views. The patient underwent pharmacologic (Regadenoson) evaluation with a peak heart rate of 81 beats per minute (53% percent predicted maximal heart rate) and a peak blood pressure of 150/68 mmHg. The patient was injected with 44.7 millicuries of technetium 99m Cardiolite and subsequently stress SPECT Cardiolite nuclear imaging was obtained in the horizontal long, vertical long, and short axis views. A gated Cardiolite study at peak stress was obtained. Interpretation: Rest and stress SPECT Cardiolite nuclear imaging status post realignment, normalization, and attenuation correction demonstrate insert normal. There is end systolic thickening and brightening. The gated Cardiolite study demonstrates myocardial thickening and inward wall motion. The reported LVEF is 51%. Impression: 1. Rest and stress SPECT Cardiolite nuclear imaging demonstrate relative uniform tracer uptake and myocardial perfusion appearing within normal limits. 2. The gated Cardiolite study reports an LVEF of 51%. This note was generated with Sharematication software. It may contain incorrect words, spelling, and punctuation that were not noted in checking the note before signing.
== END | disposition home or self-care (01) ==
LOC: CVS 06:24
PROVIDERS: Referring Provider Internal Medicine Cardiovascular Disease; Visit Provider Internal Medicine Cardiovascular Disease
DX: R07.9 Chest pain, unspecified (principal); R06.00 Dyspnea, unspecified; Z98.61 Coronary angioplasty status; Z95.1 Presence of aortocoronary bypass graft; Z98.890 Other specified postprocedural states; Z86.79 Personal history of other diseases of the circulatory system
CPT/HCPCS: 78452; 93017; A9500; A4216; J2785

== ENCOUNTER → 2021-12-17 | Outpatient (CLI) | payer MEDICARE, SELFPAY ==
--- NOTE | 2021-12-17 17:10 | RAD_ITS ---
STUDY: CHEST SERIES--PA AND LATERAL VIEWS OF 1715 HOURS ON 12/17/2021 REASON FOR EXAM: 71-year-old male with nicotine dependence. TECHNIQUE: A standard 2 view chest x-ray series was performed per protocol. COMPARISON: 02/11/2021. FINDINGS: Previous sternal thoracotomy. Left ventricular cardiac configuration with borderline cardiomegaly. No pulmonary infiltrates, atelectasis, effusion, or pulmonary mass lesions. No interval change since the previous study of 02/11/2021. RAD/Chest PA and Lateral IMPRESSION: 1. Previous sternal thoracotomy. 2. Borderline cardiomegaly with a left ventricular configuration, but no heart failure. 3. No pulmonary mass lesions. 4. No other evidence of active cardiopulmonary disease. 5. No interval change since previous study of 02/11/2021. Electronically Signed: Dorian Hussein MD at 23:52 EDT ,
== END | disposition home or self-care (01) ==
LOC: MTRAD 17:09
PROVIDERS: Referring Provider Internal Medicine Pulmonary Disease; Visit Provider Internal Medicine Pulmonary Disease
DX: Z87.891 Personal history of nicotine dependence (principal)
CPT/HCPCS: 71046

== ENCOUNTER → 2022-11-28 | Outpatient (CLI) | payer OTHER, SELFPAY ==
[2022-11-28 11:25] LABS: Absolute Lymphocyte Count 2.19 X10^3/uL (0.83-4.51); Absolute Neutrophil Count 5.8 X10^3/uL (2.0-7.7); Basophil# 0.05 X10^3/uL; Basophil% 0.6 % (0-1); Eosinophils% 2.2 % (0-5); Hematocrit 47.1 % (40-54); Hemoglobin 15.8 g/dL (13.0-16.5); Lymphocyte # 2.19 X10^3/ul (0.83-4.51); Lymphocyte % 24.6 % (19-41); Mean Corp Hgb Conc 33.5 g/dL (32-36); Mean Corpuscular Hgb 30.4 pg (27.0-32.0); Mean Corpuscular Volume 90.8 fL (80-94); Mean Platelet Vol. 9.4 fl (6.2-12.0); Monocyte# 0.65 X10^3/uL; Monocyte% 7.3 % (0-10); NRBC Flagged by Analyzer 0 % (0-5); Neutrophil # 5.77 X10^3/uL (2.7-7.7); Neutrophil % 64.9 % (47-70); Platelet Count 235 K/mm3 (150-450); RBC Distribution Width CV 13.2 % (11.6-14.6); RBC Distribution Width SD 43.6 fl (35.1-43.9); Red Blood Count 5.19 M/mm3 (4.6-6.2); White Blood Count 8.9 K/mm3 (4.4-11.0)
[2022-11-28 11:48] LABS: ALB/GLOB Ratio 0.9 RATIO (0.9-2.4); AST(SGOT) 31 U/L (15-37); Alanine Aminotransfer ALT/SGPT 38 U/L (16-61); Albumin, Serum 3.7 g/dL (3.2-5.0); Alkaline Phosphatase 110 U/L (45-117); Anion Gap 1 (5-15); BNP,B-Type NATRIURETIC PEPTIDE 48.4 pg/mL (0-100); BUN 12 mg/dL (7-18); BUN/Creat Ratio 11.1 RATIO (10-20); Calcium,Total 8.7 mg/dL (8.5-10.1); Chloride 103 mmol/L (98-107); Cholesterol 115 mg/dL (200); Creatinine, Serum 1.08 mg/dL (0.70-1.30); EST Glomerular Filtration Rate 72 mL/min (>60); Est Glom Filt Rate - Afr Amer 87 mL/min (>60); Globulin 4.1 g/dL (2.2-4.2); Glucose 213 mg/dL (74-106); High Density Lipoprotein 34 mg/dL; Potassium 3.9 mmol/L (3.5-5.1); Protein, Total 7.8 g/dL (6.4-8.2); Sodium Level 135 mmol/L (136-145); Triglycerides 273 mg/dL; Very Low Density Lipoprotein 55 mg/dL (5-40)
== END | disposition home or self-care (01) ==
PROVIDERS: Referring Provider Physician Assistant Medical; Visit Provider Physician Assistant Medical
DX: R06.00 Dyspnea, unspecified (principal); I10 Essential (primary) hypertension; E78.00 Pure hypercholesterolemia, unspecified; Z98.890 Other specified postprocedural states; Z95.1 Presence of aortocoronary bypass graft; Z98.61 Coronary angioplasty status; Z86.79 Personal history of other diseases of the circulatory system
CPT/HCPCS: 36415; 80053; 80061; 83880; 85025

== ENCOUNTER → 2022-12-20 | Outpatient (CLI) | payer OTHER, SELFPAY ==
--- NOTE | 2022-12-20 08:39 | ECHOCS_ITS ---
Reason For Study: DYSPNEA Procedure This was a 2D Doppler, Color Flow transthoracic echocardiogram. The study was technically difficult. Due to body habitus/poor apical accoustic windows. Contrast injection was performed. Exam performed in department. Left Ventricle Normal LV size. Left ventricular systolic function is normal. The estimated ejection fraction is 60 %. No regional wall motion abnormalities noted. Right Ventricle Normal RV size. Normal systolic function. Atria Normal left atrium. Normal right atrium. Tricuspid Valve Normal tricuspid valve. Mild tricuspid valve insufficiency. Aortic Valve Bicuspid aortic valve. Bicuspid valve repair. Peak aortic valve gradient 22 mmHg. Mean aortic valve gradient 14.1 mmHg. Pericardium/Pleural No pericardial effusion. Medication 22 gauge I.V. with prn adaptor inserted into right arm. Diluted definity 2.5ml given slow IV push to enhance endocardial definition. MMode/2D Measurements & Calculations LVIDd: 4.9 cm IVSd: 1.0 cm LVOT diam: 2.2 cm LVIDs: 3.3 cm LVPWd: 1.1 cm LVOT area: 3.8 cm2 RVDd: 3.3 cm FS: 33.2 % Ao root diam: 3.2 cm LAV(MOD-bp): 42.5 ml LA A4 area: 15.8 cm2 LAV(MOD-bp) Indexed: 18.2 ml/m2 LAV(MOD-sp2): 43.3 ml LAV(MOD-sp4): 36.0 ml LA dimension(2D): 3.8 cm RA A4 area: 15.6 cm2 Time Measurements MV dec time: 0.28 sec Doppler Measurements & Calculations MV E max tom: 51.5 cm/sec Lat Peak E' Tom: 8.5 cm/sec Med Peak E' Tom: 8.2 cm/sec MV A max tom: 75.4 cm/sec E/E' lat: 6.0 E/E' med: 6.3 MV E/A: 0.68 Ao V2 max: 236.2 cm/sec LV V1 max: 66.0 cm/sec MV dec slope: 195.9 cm/sec2 Ao max P.5 mmHg LV V1 max P.7 mmHg Ao V2 mean: 177.2 cm/sec LV V1 mean P.91 mmHg Ao mean P.1 mmHg LV V1 mean: 44.7 cm/sec Ao V2 VTI: 53.6 cm LV V1 VTI: 14.9 cm AV (velocity ratio): 0.28 RODGER(I,D): 1.0 cm2 RODGER(V,D): 1.1 cm2 SV(LVOT): 56.0 ml PA V2 max: 121.0 cm/sec TR max tom: 181.6 cm/sec PA V2 mean: 83.5 cm/sec TR max P.2 mmHg ECHO/Echo Complete W/ Contrast Interpretation Summary Normal LV size. Left ventricular systolic function is normal. The estimated ejection fraction is 60 %. Bicuspid aortic valve. Mean aortic valve gradient 14.1 mmHg. Bicuspid valve repair. Ordering Physician: Xi Chawla Referring Physician: Eugenio Arias Performed By: Marsha Rooney RDCS, RVT
== END | disposition home or self-care (01) ==
LOC: CVS 08:38
PROVIDERS: Referring Provider Physician Assistant Medical; Visit Provider Physician Assistant Medical
DX: R06.00 Dyspnea, unspecified (principal)
CPT/HCPCS: 93306; Q9957; A4216; C8929

== ENCOUNTER → 2023-09-11 | Outpatient (CLI) | payer OTHER, SELFPAY ==
[2023-09-11 13:58] LABS: AST(SGOT) 31 U/L (15-37); Alanine Aminotransfer ALT/SGPT 39 U/L (16-61); CPK Total, Creatine Kinase 141 U/L (39-308); Cholesterol 108 mg/dL (200); High Density Lipoprotein 38 mg/dL; Triglycerides 129 mg/dL; Very Low Density Lipoprotein 26 mg/dL (5-40)
== END | disposition home or self-care (01) ==
PROVIDERS: Referring Provider Internal Medicine Cardiovascular Disease; Visit Provider Internal Medicine Cardiovascular Disease
DX: E78.5 Hyperlipidemia, unspecified (principal); E11.9 Type 2 diabetes mellitus without complications; I25.10 Atherosclerotic heart disease of native coronary artery without angina pectoris
CPT/HCPCS: 36415; 80061; 82550; 84450; 84460

== ENCOUNTER → 2023-12-29 | Outpatient (CLI) | payer MEDICARE, SELFPAY ==
[2023-12-29 15:29] LABS: Absolute Lymphocyte Count 1.99 X10^3/uL (0.83-4.51); Absolute Neutrophil Count 4.4 X10^3/uL (2.0-7.7); Basophil# 0.04 X10^3/uL; Basophil% 0.5 % (0-1); Eosinophils% 2.7 % (0-5); Hematocrit 47.1 % (40-54); Hemoglobin 15.6 g/dL (13.0-16.5); Lymphocyte # 1.99 X10^3/ul (0.83-4.51); Lymphocyte % 26.9 % (19-41); Mean Corp Hgb Conc 33.1 g/dL (32-36); Mean Corpuscular Hgb 29.9 pg (27.0-32.0); Mean Corpuscular Volume 90.4 fL (80-94); Mean Platelet Vol. 9.4 fl (6.2-12.0); Monocyte# 0.71 X10^3/uL; Monocyte% 9.6 % (0-10); NRBC Flagged by Analyzer 0 % (0-5); Neutrophil # 4.42 X10^3/uL (2.7-7.7); Neutrophil % 59.9 % (47-70); Platelet Count 251 K/mm3 (150-450); RBC Distribution Width CV 13.2 % (11.6-14.6); RBC Distribution Width SD 43.7 fl (35.1-43.9); Red Blood Count 5.21 M/mm3 (4.6-6.2); White Blood Count 7.4 K/mm3 (4.4-11.0)
[2023-12-29 15:54] LABS: Hemoglobin A1c 6.7 % (3.8-5.6)
[2023-12-29 15:56] LABS: ALB/GLOB Ratio 0.9 RATIO (0.9-2.4); AST(SGOT) 28 U/L (15-37); Alanine Aminotransfer ALT/SGPT 37 U/L (16-61); Alkaline Phosphatase 95 U/L (45-117); Anion Gap 7 (5-15); BUN 13 mg/dL (7-18); BUN/Creat Ratio 14.6 RATIO (10-20); Bilirubin, Direct 0.24 mg/dL (0.00-0.30); Calcium,Total 9.5 mg/dL (8.5-10.1); Chloride 102 mmol/L (98-107); Cholesterol 122 mg/dL (200); Creatinine, Serum 0.89 mg/dL (0.70-1.30); EST Glomerular Filtration Rate 89 mL/min (>60); Est Glom Filt Rate - Afr Amer 108 mL/min (>60); Globulin 4.3 g/dL (2.2-4.2); Glucose 122 mg/dL (74-106); High Density Lipoprotein 43 mg/dL; Potassium 4.2 mmol/L (3.5-5.1); Protein, Total 8.3 g/dL (6.4-8.2); Sodium Level 137 mmol/L (136-145); Thyroid Stim Hormone (TSH) 1.95 uIU/mL (0.358-3.74); Triglycerides 160 mg/dL; Very Low Density Lipoprotein 32 mg/dL (5-40)
== END | disposition home or self-care (01) ==
PROVIDERS: PCP Internal Medicine; Visit Provider Internal Medicine
DX: E11.9 Type 2 diabetes mellitus without complications (principal); E03.9 Hypothyroidism, unspecified
CPT/HCPCS: 36415; 80053; 80061; 82248; 83036; 84443; 85025

== ENCOUNTER → 2024-01-17 | Outpatient (CLI) | payer MEDICARE, SELFPAY ==
--- NOTE | 2024-01-17 14:41 | NEURO ---
NCS and/or EMG Patient Report Ordering Doctor: Suzy Reyez DATE OF SERVICE: 01/17/24 Federico presents with complaints of sharp shooting pain in both feet with skin sensitivity. Electrodiagnostic findings: Right peroneal motor nerve demonstrates normal distal latency with reduced amplitude and reduced conduction velocity. Left peroneal motor nerve demonstrates normal distal latency with reduced amplitude and reduced conduction velocity. There is approximately 30% drop in conduction across the the fibular head. Right tibial motor response demonstrates normal distal latency with reduced amplitude and reduced conduction velocity. Left tibial motor response demonstrates normal distal latency and amplitude with reduced conduction velocity. There is a slowing of conduction velocities in the sural and superficial peroneal nerves. Prolonged F waves and H-reflexes bilaterally. Needle EMG testing was performed in the lower limbs. Increased amplitude and duration was noted motor units in the tibialis anterior and gastrocnemius bilaterally. No acute denervation noted in any muscles tested. Electrodiagnostic impression: This is an abnormal study in the lower limbs 1. 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 There is a combination of axonal loss and demyelination. This may be secondary to the patient's diabetes 2. There is no electrodiagnostic evidence for lumbosacral radiculopathy. Multi Select Codes Neurology Neurology Interp Codes: 70114-56 Musc test done w/n test comp (interp) (2) and 34135-50 Nrv cndj test 9-10 studies (interp)
== END | disposition home or self-care (01) ==
PROVIDERS: PCP Internal Medicine; Referring Provider Internal Medicine; Visit Provider Internal Medicine
DX: G62.9 Polyneuropathy, unspecified (principal); R20.2 Paresthesia of skin
CPT/HCPCS: 95886; 95911

== ENCOUNTER 2024-02-21 13:50 | Outpatient (RCR) | payer MEDICARE, SELFPAY | END 2024-03-13 23:59 | LOC: NS 13:50 | PROVIDERS: PCP Internal Medicine; Referring Provider Internal Medicine; Visit Provider Internal Medicine | DX: Z71.3 Dietary counseling and surveillance (principal); E11.9 Type 2 diabetes mellitus without complications | CPT/HCPCS: 97802 ==

== ENCOUNTER → 2024-03-22 | Outpatient (CLI) | payer MEDICARE, SELFPAY ==
[2024-03-22 12:56] LABS: Hemoglobin A1c 6.6 % (3.8-5.6)
[2024-03-22 13:07] LABS: AST(SGOT) 43 U/L (15-37); Alanine Aminotransfer ALT/SGPT 57 U/L (16-61); Albumin, Serum 4.1 g/dL (3.2-5.0); Alkaline Phosphatase 96 U/L (45-117); Anion Gap 5 (5-15); BUN 11 mg/dL (7-18); Calcium,Total 9.6 mg/dL (8.5-10.1); Chloride 101 mmol/L (98-107); EST Glomerular Filtration Rate 78 mL/min (>60); Est Glom Filt Rate - Afr Amer 95 mL/min (>60); Glucose 114 mg/dL (74-106); Potassium 4.2 mmol/L (3.5-5.1); Protein, Total 8.1 g/dL (6.4-8.2); Sodium Level 133 mmol/L (136-145)
== END | disposition home or self-care (01) ==
LOC: BIMLAB 10:18
PROVIDERS: PCP Internal Medicine; Referring Provider Internal Medicine; Visit Provider Internal Medicine
DX: E11.9 Type 2 diabetes mellitus without complications (principal)
CPT/HCPCS: 36415; 80053; 83036

== ENCOUNTER 2024-03-25 15:13 | Outpatient (RCR) | payer MEDICARE, SELFPAY | END 2024-04-13 23:59 | LOC: NS 15:13 | PROVIDERS: PCP Internal Medicine; Referring Provider Internal Medicine; Visit Provider Internal Medicine | DX: Z71.3 Dietary counseling and surveillance (principal); E11.9 Type 2 diabetes mellitus without complications | CPT/HCPCS: 97803 ==

== ENCOUNTER → 2024-04-26 | Outpatient (CLI) | payer MEDICARE, SELFPAY ==
--- NOTE | 2024-04-26 13:47 | ECHOD_ITS ---
Reason For Study: BICUSPID AORTA Procedure This was a 2D Doppler, Color Flow transthoracic echocardiogram. Exam performed in department. Left Ventricle Normal LV size. Moderate LV systolic dysfunction. Severe septal hypokinesis. Dyssynchronous septum. Estimated LVEF 40%. Grade 1 diastolic dysfunction. Right Ventricle Normal right ventricle. Atria The left and right atria are normal. Mitral Valve Trivial mitral valve insufficiency. Tricuspid Valve Normal tricuspid valve. Aortic Valve Aortic valve not well-visualized in short axis. Moderate calcification. Mild to moderate aortic valve stenosis with mean peak gradient of 19.4 mmHg. Aortic valve area calculated at 1.3 cm??. Pulmonic Valve The pulmonic valve is not well visualized. Great Vessels Normal sized aortic root. Pericardium/Pleural No pericardial effusion. MMode/2D Measurements & Calculations LVIDd: 5.0 cm IVSd: 1.1 cm LVOT diam: 2.0 cm LVIDs: 4.0 cm LVPWd: 1.5 cm LVOT area: 3.2 cm2 FS: 19.7 % Ao root diam: 3.5 cm asc Aorta Diam: 3.4 cm LAV(MOD-bp): 48.8 ml LAV(MOD-bp) Indexed: 21.9 ml/m2 LAV(MOD-sp2): 46.2 ml LAV(MOD-sp4): 53.3 ml SV(MOD-sp4): 54.2 ml SV(sp4-el): 58.4 ml LVAd ap4: 34.4 cm2 LVLd ap4: 9.1 cm EDV(MOD-sp4): 109.1 ml EDV(sp4-el): 109.6 ml LVAs ap4: 23.0 cm2 LVLs ap4: 8.8 cm ESV(MOD-sp4): 54.9 ml ESV(sp4-el): 51.3 ml EF(MOD-sp4): 49.7 % EF(sp4-el): 53.2 % LA A4 area: 18.4 cm2 LA dimension(2D): 3.9 cm RA A4 area: 9.2 cm2 Time Measurements MV dec time: 0.18 sec Doppler Measurements & Calculations MV E max tom: 62.3 cm/sec Lat Peak E' Tom: 6.6 cm/sec Med Peak E' Tom: 5.8 cm/sec MV A max tom: 104.0 cm/sec E/E' lat: 9.4 E/E' med: 10.7 MV E/A: 0.60 MV V2 max: 97.7 cm/sec Ao V2 max: 300.0 cm/sec MV max P.8 mmHg MV dec slope: 345.4 cm/sec2 Ao max P.0 mmHg MV V2 mean: 54.9 cm/sec Ao V2 mean: 201.5 cm/sec MV mean P.5 mmHg Ao mean P.4 mmHg MV V2 VTI: 27.4 cm Ao V2 VTI: 62.5 cm AV (velocity ratio): 0.40 MVA(VTI): 2.9 cm2 RODGER(I,D): 1.3 cm2 RODGER(V,D): 1.2 cm2 LV V1 max: 114.0 cm/sec SV(LVOT): 79.3 ml PA V2 max: 155.8 cm/sec LV V1 max P.2 mmHg PA V2 mean: 104.9 cm/sec LV V1 mean P.1 mmHg LV V1 mean: 82.8 cm/sec LV V1 VTI: 24.7 cm ECHO/Echo Complete Interpretation Summary Moderate LV systolic dysfunction. Severe septal hypokinesis. Dyssynchronous sep alvino. Estimated LVEF 40%. Grade 1 diastolic dysfunction. Aortic valve not well-visualized in short axis. Moderate calcification. Mild to moderate aortic valve stenosis with mean peak gradient of 19.4 mmHg. Aortic valve area calculat ed at 1.3 cm??. Ordering Physician: Cheo Munoz Referring Physician: Cheo Munoz Performed By: Marjorie Evans RCS
== END | disposition home or self-care (01) ==
LOC: CVS 13:47
PROVIDERS: PCP Internal Medicine; Referring Provider Internal Medicine Cardiovascular Disease; Visit Provider Internal Medicine Cardiovascular Disease
DX: I25.10 Atherosclerotic heart disease of native coronary artery without angina pectoris (principal); E11.9 Type 2 diabetes mellitus without complications; I35.9 Nonrheumatic aortic valve disorder, unspecified; E78.5 Hyperlipidemia, unspecified; R94.39 Abnormal result of other cardiovascular function study; R06.00 Dyspnea, unspecified; Z98.890 Other specified postprocedural states; Z86.79 Personal history of other diseases of the circulatory system; Z95.1 Presence of aortocoronary bypass graft; Q23.1 Congenital insufficiency of aortic valve
CPT/HCPCS: 93306

== ENCOUNTER → 2024-05-24 | Outpatient (CLI) | payer MEDICARE, SELFPAY ==
--- NOTE | 2024-05-24 09:58 | STRESSREP_ITS ---
Stress Test Report Date: 05/24/2024 Procedure: Pharmacologic stress nuclear imaging study Indications: Coronary artery disease Consent: Per the patient Procedure: The patient underwent pharmacologic (Regadenoson 0.4mg ) evaluation with a peak heart rate of 81 beats per minute (54%predicted maximal heart rate) and a peak blood pressure of 132/80 mmHg. The baseline ECG demonstrated sinus rhythm with left bundle branch block. The peak pharmacologic ECG demonstrated no diagnostic changes secondary to baseline left bundle. There were no cardiac dysrhythmias pretest, during pharmacologic infusion, or recovery. There was no complaint of chest discomfort during pharmacologic infusion or recovery. The patient was injected with 14.6 millicuries of technetium 99m Cardiolite and subsequently rest SPECT Cardiolite nuclear imaging was obtained in the horizontal long, vertical long, and short axis views. The patient underwent pharmacologic (Regadenoson) evaluation. The patient was injected with 44.8 millicuries of technetium 99m Cardiolite and subsequently stress SPECT Cardiolite nuclear imaging was obtained in the horizontal long, vertical long, and short axis views. A gated Cardiolite study at peak stress was obtained. The examination was stopped secondary to completion of protocol. Rest and stress SPECT Cardiolite nuclear imaging status post realignment, normalization, and attenuation correction demonstrate no fixed or reversible perfusion defects. There is end systolic thickening and brightening. The gated Cardiolite study demonstrates myocardial thickening and inward wall motion. The reported LVEF is 47%. Impression: 1. Pharmacologic (Regadenoson) evaluation 2. Peak pharmacologic ECG nondiagnostic. 3. There were no cardiac dysrhythmias pretest, during pharmacologic infusion, or recovery. 5. Rest and stress SPECT Cardiolite nuclear imaging demonstrate relative uniform tracer uptake and myocardial perfusion appearing within normal limits. 6. The gated Cardiolite study reports an LVEF of 47%. This note was generated with [employer] software. It may contain incorrect words, spelling, and punctuation that were not noted in checking the note before signing.
== END | disposition home or self-care (01) ==
LOC: CVS 06:33
PROVIDERS: PCP Internal Medicine; Referring Provider Nurse Practitioner Gerontology; Visit Provider Nurse Practitioner Gerontology
DX: I25.10 Atherosclerotic heart disease of native coronary artery without angina pectoris (principal); R93.1 Abnormal findings on diagnostic imaging of heart and coronary circulation
CPT/HCPCS: 78452; 93017; A9500; A4216; J2785

== ENCOUNTER → 2024-06-26 | Outpatient (CLI) | payer MEDICARE, SELFPAY ==
[2024-06-26 12:45] LABS: Microalbumin,Random Urine < 5.0 mg/L (NO RANGE EST.)
[2024-06-26 12:46] LABS: Anion Gap 4 (5-15); BUN 14 mg/dL (7-18); BUN/Creat Ratio 17.2 RATIO (10-20); Calcium,Total 8.9 mg/dL (8.5-10.1); Chloride 105 mmol/L (98-107); Creatinine, Serum 0.81 mg/dL (0.70-1.30); EST Glomerular Filtration Rate 99 mL/min (>60); Est Glom Filt Rate - Afr Amer 120 mL/min (>60); Glucose 173 mg/dL (74-106); PSA,Total - Annual Screen 0.22 ng/mL (0.00-4.00); Potassium 4.5 mmol/L (3.5-5.1); Sodium Level 137 mmol/L (136-145)
[2024-06-26 13:43] LABS: Hemoglobin A1c 6.8 % (3.8-5.6)
== END | disposition home or self-care (01) ==
LOC: BIMLAB 09:19
PROVIDERS: PCP Internal Medicine; Referring Provider Internal Medicine; Visit Provider Internal Medicine
DX: E11.9 Type 2 diabetes mellitus without complications (principal); E03.9 Hypothyroidism, unspecified; Z12.5 Encounter for screening for malignant neoplasm of prostate
CPT/HCPCS: 36415; 80048; 82043; 82570; 83036; 84153; 84443; G0103

== ENCOUNTER → 2024-07-08 | Outpatient (CLI) | payer MEDICARE, SELFPAY ==
--- NOTE | 2024-07-08 11:26 | RAD_ITS ---
STUDY: X-RAY - LUMBAR SPINE REASON FOR EXAM: Male, 74 years old. BACK PAIN TECHNIQUE: 2 view(s) of the lumbar spine were obtained. COMPARISON: None FINDINGS: Normal lumbar lordosis. There is no substantial scoliosis. There is a normal alignment of the vertebrae. There is multilevel endplate spondylosis of the lumbar vertebrae. There is multi-level degenerative disc disease with multi-level disc space narrowing. There is multilevel facet hypertrophy. The soft tissue structures are unremarkable. RAD/Lumbar Spine 2 or 3 Views IMPRESSION: Degenerative changes of the spine, as detailed above. MRI may be useful. Electronically Signed: Zion Su MD at 15:36 EST ,
--- NOTE | 2024-07-08 11:26 | RAD_ITS ---
STUDY: X-RAY - LEFT SHOULDER REASON FOR EXAM: Male, 74 years old. Left Shoulder Pain, LROM TECHNIQUE: 4 view(s) of the shoulder. COMPARISON: None. FINDINGS: There is moderate degenerative arthrosis of the glenohumeral articulation. There is hypertrophic osteoarthrosis of the acromioclavicular joint with inferior osseous spur formation. Normal acromion. Normal humeral head and visualized proximal humerus. The soft tissue structures are unremarkable. Normal visualized pulmonary apex. RAD/Shoulder min 2 Views IMPRESSION: Moderate glenohumeral and acromioclavicular joint arthrosis. MRI may be useful. Electronically Signed: Zion Su MD at 15:37 EST ,
[2024-07-08 12:22] LABS: Amphetamine Urine VISTA NEGATIVE (<1000 ng/mL); Barbiturate Urine VISTA NEGATIVE (< 200 ng/mL); Benzodiazepine Urine VISTA NEGATIVE (< 200 ng/mL); Cocaine Urine VISTA NEGATIVE (< 300 ng/mL); Ecstacy Urine VISTA NEGATIVE (< 500 ng/mL); Methadone Urine VISTA NEGATIVE (< 300 ng/mL); PCP Urine VISTA NEGATIVE (< 25 ng/mL); THC Urine VISTA NEGATIVE (< 50 ng/mL); Vista UDS pH Range 7
== END | disposition home or self-care (01) ==
PROVIDERS: PCP Internal Medicine; Referring Provider Anesthesiology Pain Medicine; Visit Provider Anesthesiology Pain Medicine
DX: M54.9 Dorsalgia, unspecified (principal); F11.20 Opioid dependence, uncomplicated; M25.512 Pain in left shoulder
CPT/HCPCS: 72100; 73030; 80307

== ENCOUNTER → 2025-03-12 | Outpatient (CLI) | payer MEDICARE, SELFPAY ==
[2025-03-12 13:20] LABS: Anion Gap 12 (5-15); BUN 15 mg/dL (4-19); BUN/Creat Ratio 14.2 RATIO (10-20); Calcium,Total 9.4 mg/dL (7.6-11.0); Carbon Dioxide 24.7 mmol/L (21.0-32.0); Chloride 99 mmol/L (98-108); Glucose 179 mg/dL (70-99); Potassium 4.4 mmol/L (3.3-5.1)
== END | disposition home or self-care (01) ==
LOC: BIMLAB 09:18
PROVIDERS: PCP Internal Medicine; Visit Provider Internal Medicine
DX: E11.9 Type 2 diabetes mellitus without complications (principal); E03.9 Hypothyroidism, unspecified
CPT/HCPCS: 36415; 80048; 84443

== ENCOUNTER → 2025-04-24 | Outpatient (CLI) | payer MEDICARE, SELFPAY ==
[2025-04-24 13:01] LABS: AST(SGOT) 31 U/L (<=37); Alanine Aminotransfer ALT/SGPT 32 U/L (<=46); Albumin, Serum 4.2 g/dL (3.4-4.8); Alkaline Phosphatase 71 U/L (40-129); Anion Gap 13 (5-15); BUN 13 mg/dL (4-19); BUN/Creat Ratio 14.9 RATIO (10-20); Calcium,Total 9.1 mg/dL (7.6-11.0); Carbon Dioxide 21.5 mmol/L (21.0-32.0); Chloride 102 mmol/L (98-108); Cholesterol 110 mg/dL (<=200); Globulin 3.0 g/dL (2.2-4.2); Glucose 147 mg/dL (70-99); Low Density Lipoprotein Calc. 46 mg/dL; Potassium 4.3 mmol/L (3.3-5.1); Triglycerides 160 mg/dL; Very Low Density Lipoprotein 32 mg/dL (5-40); cholesterol:hdl ratio screen 3.45
== END | disposition home or self-care (01) ==
PROVIDERS: PCP Internal Medicine; Referring Provider Physician Assistant Medical; Visit Provider Physician Assistant Medical
DX: E78.00 Pure hypercholesterolemia, unspecified (principal); I25.10 Atherosclerotic heart disease of native coronary artery without angina pectoris; Z79.899 Other long term (current) drug therapy
CPT/HCPCS: 36415; 80053; 80061